=== PATIENT | male | born 1935 | race Caucasian/White ===

== ENCOUNTER 2021-04-07 17:42 | Inpatient (IN) | payer MEDICARE ==
[~2021-04-07] VITALS: Ht 177.8 cm; Wt 73.4 kg
[2021-04-07 18:31] LABS: BILIRUBIN,URINE SMALL (NEG); CLARITY,URINE CLEAR; COLOR,URINE YELLOW; NITRITE,URINE NEGATIVE (NEG); PROTEIN,URINE 100 mg/dL (NEG-TRACE)
[2021-04-07 18:34] LABS: BASO % 0 % (0-3); EOS % 0 % (0-3); HEMATOCRIT 37.4 % (39.0-53.0); HEMOGLOBIN 13.2 g/dL (13.0-17.5); LYMPH # 0.5 x10^3/uL (1.0-4.8); LYMPH % 6 % (24-48); MEAN CORPUSCULAR HEMOGLOBIN 34 pg (25-35); MEAN CORPUSCULAR HGB CONC 35 g/dL (31-37); MEAN CORPUSCULAR VOLUME 97 fL (79-100); MONO # 0.4 x10^3/uL (0.0-1.1); MONO % 4 % (0-9); NEUT # 7.8 x10^3/uL (1.8-7.7); NEUT % 89 % (31-73); PLATELET COUNT 96 x10^3/uL (140-400); RED BLOOD COUNT 3.85 x10^6/uL (4.30-5.70); RED CELL DISTRIBUTION WIDTH 15.1 % (11.5-14.5); WHITE BLOOD COUNT 8.7 x10^3/uL (4.0-11.0)
[2021-04-07 18:37] LABS: AMPHETAMINE/METHAMPHETAMINE NEG (NEG); BARBITURATES NEG (NEG); BENZODIAZEPINES NEG (NEG); CANNABINOIDS NEG (NEG); COCAINE NEG (NEG); METHADONE NEG (NEG); OPIATES NEG (NEG); PHENCYCLIDINE NEG (NEG)
--- NOTE | 2021-04-07 18:41 | RAD ---
Exam Date: 04/07/2021 6:[address] HEAD/BRAIN WO Indication: Reason: AMS, weakness / Spl. Instructions: / History: . TECHNIQUE: Head CT was performed without intravenous contrast. One or more of the following dose re duction techniques were utilized: *Automated exposure control (AEC) *Adjustment of mA and/or kV according to patient size *Use of iterative reconstruction technique *CT scan done according to ALARA, or ALARA/IMAGE GENTLY FINDINGS: There is a large hypodense left subdural collection measuring up to 2.0 cm in maximal thickness. Sma ll hyperdensity seen along this collection anteriorly which could represent acute blood versus calcif ication. There is significant mass effect on the left lateral ventricle with 1.4 cm midline shift to the right and subfalcine herniation. Cerebral volume loss is noted. Patchy ill-defined low attenuation areas in the subcortical and periv entricular white matter bilaterally are consistent with microvascular disease. There is no evidence of acute territorial infarct. No lesion of the skull base or the calvarium is seen. The visualized p aranasal sinuses, mastoid air cells and orbits are normal in appearance. IMPRESSION: Large hypodense chronic subdural collection on the left with significant mass effect, subfalcine yulisa iation, and 1.4 cm midline shift to the right. Small hyperdensity along the anterior aspect of the s ubdural likely represents chronic calcification. Acute blood would be considered less likely as a hy perdensity is not layering dependently. Volume loss and microvascular disease. Findings discussed with Dr. Lala at 04/07/2021 6:35 PM. FOR INTERNAL CODING PURPOSES Critical result: RESULT CODE: (C) Electronically signed by: Joseph Shankar MD (04/07/2021 6:38 PM) [facility]
[2021-04-07 18:46] LABS: BACTERIA,URINE 0 /HPF (0-FEW)
[2021-04-07 19:00] LABS: ALBUMIN 3.3 g/dL (3.4-5.0); ALBUMIN/GLOBULIN RATIO 0.7 (1.0-1.7); CALCIUM 9.3 mg/dL (8.5-10.1); CREATININE 1.3 mg/dL (0.7-1.3); GFR 52.6; MAGNESIUM 2.1 mg/dL (1.8-2.4); POTASSIUM 3.8 mmol/L (3.5-5.1); TOTAL PROTEIN 8.3 g/dL (6.4-8.2)
--- NOTE | 2021-04-07 19:03 | RAD ---
Single view chest dated 04/07/2021 7:00 PM: COMPARISON: None Clinical Indication: Shortness of breath. Findings: Single upright portable exam of the chest was performed. Heart and mediastinal contours within normal limits. Lungs are hyperinflated. There is some patchy and linear opacity at the perihilar regions an d bilateral lung bases. No consolidation or pleural effusion. No pneumothorax. IMPRESSION: 1. Patchy perihilar opacities, atelectasis versus early pneumonia. 2. Findings suggestive of COPD. Electronically signed by: Aubrey Haas MD (04/07/2021 7:00 PM) [facility]HELLE
[2021-04-07 19:14] LABS: % BANDS 1 % (0-9); % LYMPHS 10 % (24-48); % MONOS 3 % (0-10); % SEGS 86 % (35-66); PLT ESTIMATE DECREASED (ADEQUATE)
[2021-04-07] MEDS ORDERED: THROMBIN TOPICAL 20,000 UNIT SPRAY.SYRN KIT TP ONE (19:38)
[2021-04-07] MEDS ORDERED: SURGICEL HEMOSTAT 4X8 EACH. ONE (19:38)
[2021-04-07] MEDS ORDERED: GELATIN SPONGE SIZE 100. ONE (19:38)
[2021-04-07] MEDS ORDERED: BUPIVACAINE-EPI 0.5% 30 ML VIAL KIT. ONE (19:38)
[2021-04-07] MEDS ORDERED: BUPIVACAINE-EPI 0.5%-1:200000 MPF 30 ML VIAL. ONE (19:39)
[2021-04-07] MEDS ORDERED: IV NORMAL SALINE 1000ML BAG 1,000 ML IV ONE (19:45)
[2021-04-07] MEDS ORDERED: ROCURONIUM 50 MG/5 ML VIAL. ONE (19:46)
[2021-04-07] MEDS ORDERED: PROPOFOL 10 MG/ML (20ML) VIAL. IV ONE (19:51)
[2021-04-07] MEDS ORDERED: DEXAMETHASONE SOD PHOS 20 MG/5 ML VIAL. ONE (19:51)
[2021-04-07] MEDS ORDERED: LIDOCAINE 2% PF 5 ML VIAL. ONE (19:51)
[2021-04-07] MEDS ORDERED: ONDANSETRON PF 4 MG/2 ML VIAL. ONE (19:51)
[2021-04-07] MEDS ORDERED: ceFAZolin SODIUM 1 GM in IV NORMAL SALINE 1000ML BAG 1,000 ML IRR ONE (20:00)
[2021-04-07] MEDS ORDERED: ceFAZolin SODIUM IV Push 1 GM VIAL. IVP ONE (20:00)
[2021-04-07] MEDS ORDERED: MORPHINE SULFATE 2 MG/ML INJ. IVP PRN (21:30)
[2021-04-07] MEDS ORDERED: PROCHLORPERAZINE 10 MG/2 ML VIAL. IVP PRN (21:30)
[2021-04-07] MEDS ORDERED: IV RINGERS,LACTATED 1000ML 1,000 ML IV SCH (21:30)
[2021-04-07] MEDS ORDERED: fentaNYL PF VIAL 100 MCG/2 ML VIAL IVP PRN ×2 (21:30)
[2021-04-07] MEDS ORDERED: HYDROmorphone 2 MG/ML VIAL IVP PRN (21:30)
--- NOTE | 2021-04-07 21:30 | PHYS DOC ---
Past Medical History Past Medical History: Dementia (ALEX OLIVO ORTHODONTIC TECHNICIAN) Past Surgical History: Other Additional Past Surgical Histo: Unknown (ALEX OLIVO ORTHODONTIC TECHNICIAN) Smoking Status: Never Smoker Alcohol Use: None (ALEX OLIVO ORTHODONTIC TECHNICIAN) General Adult EDM: Chief Complaint: WEAKNESS/GENERALIZED HPI: HPI: Patient is a 85 year old male with history of dementia presenting to the ED today via EMS to be evaluated for altered mental status and generalized weakness. It is unknown when his symptoms began. Patient is answering simple questions with yes or no but seem not to follow much directions. Family came to the ED later, they state patient has had general weakness and altered mental status since this morning. They deny patient falling today but states a couple months ago he fell off his truck bed. (ALEX OLIVO ORTHODONTIC TECHNICIAN) Review of Systems: Review of Systems: Constitutional: Unable to assess due to mentation Eyes: Unable to assess due to mentation HENT: Unable to assess due to mentation Respiratory: Unable to assess due to mentation Cardiovascular: Unable to assess due to mentation GI: Unable to assess due to mentation : Unable to assess due to mentation Musculoskeletal: Unable to assess due to mentation Neurologic: Altered mental status Psychiatric: History of depression (ALEX OLIVO ORTHODONTIC TECHNICIAN) Heart Score: C/O Chest Pain: N/A Risk Factors: Risk Factors: DM, Current or recent (<one month) smoker, HTN, HLP, family hi story of CAD, obesity. Risk Scores: Score 0 - 3: 2.5% MACE over next 6 weeks - Discharge Home Score 4 - 6: 20.3% MACE over next 6 weeks - Admit for Clinical Observation Score 7 - 10: 72.7% MACE over next 6 weeks - Early Invasive Strategies (ALEX OLIVO ORTHODONTIC TECHNICIAN) Current Medications: Current Medications Medications (Trade) Dose Ordered Sig/Jennifer Start Time Stop Time Status Last Admin Dose Admin Bupivacaine HCl/ Epinephrine Bitart (Sensorcain-Epi 0.5% Kit) 30 ml STK-MED ONCE 04/07/21 19:38 04/07/21 19:39 DC Bupivacaine HCl/ Epinephrine Bitart (Sensorcain-Epi 0.5%-1:581120 Mpf) 30 ml STK-MED ONCE 04/07/21 19:39 04/07/21 19:39 DC Cefazolin Sodium (Ancef) 1 gm 1X ONCE 04/07/21 20:00 04/07/21 20:01 Cancel Cefazolin Sodium 1 gm/Sodium Chloride 1,000 ml @ 1,000 mls/hr 1X ONCE 04/07/21 20:00 04/07/21 20:59 DC Cefazolin Sodium/ Dextrose 50 ml @ As Directed STK-MED ONCE 04/07/21 20:29 04/07/21 20:29 DC Cellulose (Surgicel Hemostat 4x8) 1 each STK-MED ONCE 04/07/21 19:38 04/07/21 19:39 DC Dexamethasone Sodium Phosphate (Decadron) 20 mg STK-MED ONCE 04/07/21 19:51 04/07/21 19:51 DC Gelatin (Gelfoam Size 100) 1 each STK-MED ONCE 04/07/21 19:38 04/07/21 19:39 DC Lidocaine HCl (Lidocaine Pf 2% Vial) 5 ml STK-MED ONCE 04/07/21 19:51 04/07/21 19:51 DC Ondansetron HCl (Zofran) 4 mg STK-MED ONCE 04/07/21 19:51 04/07/21 19:51 DC Propofol (Diprivan) 200 mg STK-MED ONCE 04/07/21 19:51 04/07/21 19:51 DC Rocuronium [place] (Zemuron) 50 mg STK-MED ONCE 04/07/21 19:46 04/07/21 19:46 DC Sodium Chloride 1,000 ml @ 1,000 mls/hr 1X ONCE 04/07/21 19:45 04/07/21 20:44 Cancel Thrombin 20,000 unit STK-MED ONCE 04/07/21 19:38 04/07/21 19:39 DC (ALEX OLIVO ORTHODONTIC TECHNICIAN) Allergies: Allergies: Allergies Uncoded Allergies Type Severity Reaction Last Updated Verified "arthritis medication" Allergy Unknown 04/07/21 (ALEX OLIVO APRN) Physical Exam: PE: Constitutional: Well developed, well nourished, no acute distress, non-toxic appearance. [] HENT: Normocephalic, bilateral external ears normal, oropharynx moist, no oral exudates, nose normal. [] Eyes: PERRLA, EOMI, conjunctiva normal, no discharge. [] Neck: Normal range of motion, no tenderness, supple, no stridor. [] Cardiovascular:Heart rate regular rhythm Lungs & Thorax: Bilateral breath sounds clear to auscultation [] Abdomen: Bowel sounds normal, soft, no tenderness, no masses, no pulsatile masses. [] Skin: Warm, dry, no erythema, no rash. [] Back: No tenderness, no CVA tenderness. [] Extremities: No tenderness, no cyanosis, no clubbing, ROM intact, no edema. [] Neurologic: Alert and oriented X 1, normal motor function, normal sensory function, no focal deficits noted. Cranial nerves II through XII intact Psychologic: Flat affect (MUTUNGA,ALEX M ORTHODONTIC TECHNICIAN) Current Patient Data: Labs: Laboratory Tests Test 04/07/21 17:50 04/07/21 17:55 04/07/21 19:15 Urine Collection Type Unknown Urine Color Yellow Urine Clarity Clear Urine pH 6.0 (<5.0-8.0) Urine Specific [place] 1.020 (1.000-1.030) Urine Protein 100 mg/dL (NEG-TRACE) Urine Glucose (UA) Negative mg/dL (NEG) Urine Ketones (Stick) 40 mg/dL (NEG) Urine Blood Small (NEG) Urine Nitrite Negative (NEG) Urine Bilirubin Small (NEG) Urine Urobilinogen Dipstick 1.0 mg/dL (0.2 mg/dL) Urine Leukocyte Esterase Negative (NEG) Urine RBC 1-2 /HPF (0-2) Urine WBC 1-4 /HPF (0-4) Urine Transitional Epithelial Cells Few /LPF Urine Bacteria 0 /HPF (0-FEW) Urine Mucus Slight /LPF Urine Opiates Screen Neg (NEG) Urine Methadone Screen Neg (NEG) Urine Barbiturates Neg (NEG) Urine Phencyclidine Screen Neg (NEG) Urine Amphetamine/Methamphetamine Neg (NEG) Urine Benzodiazepines Screen Neg (NEG) Urine Cocaine Screen Neg (NEG) Urine Cannabinoids Screen Neg (NEG) Urine Ethyl Alcohol Neg (NEG) White Blood Count 8.7 x10^3/uL (4.0-11.0) Red Blood Count 3.85 x10^6/uL (4.30-5.70) L Hemoglobin 13.2 g/dL (13.0-17.5) Hematocrit 37.4 % (39.0-53.0) L Mean Corpuscular Volume 97 fL (79-100) Mean Corpuscular Hemoglobin 34 pg (25-35) Mean Corpuscular Hemoglobin Concent 35 g/dL (31-37) Red Cell Distribution Width 15.1 % (11.5-14.5) H Platelet Count 96 x10^3/uL (140-400) L Neutrophils (%) (Auto) 89 % (31-73) H Lymphocytes (%) (Auto) 6 % (24-48) L Monocytes (%) (Auto) 4 % (0-9) Eosinophils (%) (Auto) 0 % (0-3) Basophils (%) (Auto) 0 % (0-3) Neutrophils # (Auto) 7.8 x10^3/uL (1.8-7.7) H Lymphocytes # (Auto) 0.5 x10^3/uL (1.0-4.8) L Monocytes # (Auto) 0.4 x10^3/uL (0.0-1.1) Eosinophils # (Auto) 0.0 x10^3/uL (0.0-0.7) Basophils # (Auto) 0.0 x10^3/uL (0.0-0.2) Segmented Neutrophils % 86 % (35-66) H Band Neutrophils % 1 % (0-9) Lymphocytes % 10 % (24-48) L Monocytes % 3 % (0-10) Platelet Estimate Decreased (ADEQUATE) Sodium Level 140 mmol/L (136-145) Potassium Level 3.8 mmol/L (3.5-5.1) Chloride Level 101 mmol/L (98-107) Carbon Dioxide Level 26 mmol/L (21-32) Anion Gap 13 (6-14) Blood Urea Nitrogen 28 mg/dL (8-26) H Creatinine 1.3 mg/dL (0.7-1.3) Estimated GFR (Cockcroft-Gault) 52.6 BUN/Creatinine Ratio 22 (6-20) H Glucose Level 128 mg/dL (70-99) H Lactic Acid Level 2.7 mmol/L (0.4-2.0) H Calcium Level 9.3 mg/dL (8.5-10.1) Magnesium Level 2.1 mg/dL (1.8-2.4) Total Bilirubin 1.0 mg/dL (0.2-1.0) Aspartate Amino Transferase (AST) 27 U/L (15-37) Alanine Aminotransferase (ALT) 7 U/L (16-63) L Alkaline Phosphatase 82 U/L (46-116) Creatine Kinase 121 U/L (39-308) Creatine Kinase MB (Mass) 1.7 ng/mL (0.0-3.6) Creatine Kinase MB Relative Index 1.4 % (0-4) Troponin I Quantitative 0.021 ng/mL (0.000-0.055) LJ-Egy-R-Type Natriuretic Peptide 28260 pg/mL (0-449) H Total Protein 8.3 g/dL (6.4-8.2) H Albumin 3.3 g/dL (3.4-5.0) L Albumin/Globulin Ratio 0.7 (1.0-1.7) L Thyroid Stimulating Hormone (TSH) 2.295 uIU/mL (0.358-3.74) SARS-CoV-2 Antigen (Rapid) Negative (NEGATIVE) Laboratory Tests 04/07/21 17:55 Laboratory Tests 04/07/21 17:55 Vital Signs: Vital Signs Date Time Temp Pulse Resp B/P (MAP) Pulse Ox O2 Delivery O2 Flow Rate FiO2 04/07/21 19:53 86 204/87 (126) 97 Room Air 04/07/21 17:45 98.4 16 98.4 (ALEX OLIVO ORTHODONTIC TECHNICIAN) EKG: EK interpreted by Dr. Clarke sinus rhythm heart rate 83 no STEMI [] (ALEX OLIVO ORTHODONTIC TECHNICIAN) Radiology/Procedures: Radiology/Procedures: []PROCEDURE: CT HEAD WO CONTRAST Exam Date: 04/07/2021 6:[address] HEAD/BRAIN WO Indication: Reason: AMS, weakness / Spl. Instructions: / History: . TECHNIQUE: Head CT was performed without intravenous contrast. One or more of the following dose reduction techniques were utilized: *Automated exposure control (AEC) *Adjustment of mA and/or kV according to patient size *Use of iterative reconstruction technique *CT scan done according to ALARA, or ALARA/IMAGE GENTLY FINDINGS: There is a large hypodense left subdural collection measuring up to 2.0 cm in maximal thickness. Small hyperdensity seen along this collection anteriorly which could represent acute blood versus calcification. There is significant mass effect on the left lateral ventricle with 1.4 cm midline shift to the right and subfalcine herniation. Cerebral volume loss is noted. Patchy ill-defined low attenuation areas in the subcortical and periventricular white matter bilaterally are consistent with microvascular disease. There is no evidence of acute territorial infarct. No lesion of the skull base or the calvarium is seen. The visualized paranasal sinuses, mastoid air cells and orbits are normal in appearance. IMPRESSION: Large hypodense chronic subdural collection on the left with significant mass effect, subfalcine herniation, and 1.4 cm midline shift to the right. Small hyperdensity along the anterior aspect of the subdural likely represents chronic calcification. Acute blood would be considered less likely as a hyperdensity is not layering dependently. Volume loss and microvascular disease. Findings discussed with Dr. Olivo at 04/07/2021 6:35 PM. FOR INTERNAL CODING PURPOSES Critical result: RESULT CODE: (C) Electronically signed by: Edson Shankar MD (04/07/2021 6:38 PM) [facility] DICTATED and SIGNED BY: EDSON SHANKAR MD DATE: 04/07/21 [id number] (ALEX OLIVO APRN) Course & Med Decision Making: Course & Med Decision Making Pertinent Labs and Imaging studies reviewed. (See chart for details) This is a 85-year-old male patient presented to the ED today with generalized weakness and altered mental status, symptoms began today. CT of the head large hypodense chronic subdural collection on the left with significant mass effect, subfalcine herniation, and 1.4 cm midline shift to the right. Small hyperdensity along the anterior aspect of the subdural likely represents chronic calcification. Acute blood would be considered less likely as a hyperdensity is not layering dependently. Patient is awake and follows simple directions, can move upper and lower extremities. Spoke with Salima SCHAEFER for Dr. Guardado, they will take patient to surgery [facility] Family present in the ED. Spoke with Dr. Dos Santos who accepted patient for admission Dr. Clarke evaluated (ALEX OLIVO APRN) Course & Med Decision Making I have personally examined this patient and interviewed both the patient and the family, I reviewed images and agree with the documented history, exam, consult, and disposition. Decision was made by attending neurosurgeon to proceed to the operating room due to the size of subdural with midline shift. Critical care time was 35 minutes which includes time at bedside, spent in discussion of patient's care with specialists and/or family members, with interpretation of laboratory and/or radiological studies and is exclusive of procedures. Ophelia Clarke DO (OPHELIA CLARKE DO) Doc Disclaimer: Doc Disclaimer: This electronic medical record was generated, in whole or in part, using a voice recognition dictation system. (ALEX OLIVO APRN) Departure Departure Impression: Primary Impression: Subdural hematoma Additional Impression: Midline shift of brain due to hematoma Disposition: ADMITTED INPATIENT Condition: STABLE Referrals: DOUGIE MANCERA MD (PCP) ALEX OLIVO APRN Apr 07, 2021 21:30 OPHLEIA CLARKE DO Apr 07, 2021 23:39
[2021-04-07] MEDS ORDERED: ONDANSETRON PF 4 MG/2 ML VIAL. IVP PRN (21:45)
[2021-04-07] MEDS ORDERED: niCARdipine INJ. IV ONE (22:07)
[2021-04-07] MEDS ORDERED: SEVOFLURANE 61 TO 120 MINUTES. IH ONE (22:07)
[2021-04-07] MEDS ORDERED: HYDROcodone/APAP 5/325MG 1 TAB TABLET PO PRN (22:15)
[2021-04-07] MEDS ORDERED: MAG HYDROX/ALUMINUM HYD/SIMETH 30 ML ORAL.SUSP PO PRN (22:15)
[2021-04-07] MEDS ORDERED: CALCIUM CARBONATE 500 MG TAB.CHEW PO PRN (22:15)
[2021-04-07] MEDS ORDERED: 0.9 % SODIUM CHLORIDE 10 ML DISP.SYRIN. IV PRN (22:15)
[2021-04-07] MEDS ORDERED: MAGNESIUM HYDROXIDE 2,400 MG/30 ML ORAL.SUSP. PO PRN (22:15)
[2021-04-07] MEDS ORDERED: diphenhydrAMINE HCL 25 MG CAPSULE PO PRN (22:15)
[2021-04-07] MEDS ORDERED: DEXTROSE 50% 25 GM / 50ML DISP.SYRIN. IV PRN (22:15)
[2021-04-07 22:30] VITALS: BP 170/56
[2021-04-07] MEDS ORDERED: POTASSIUM CL 20MEQ D5-0.45NACL 1,000 ML IV SCH (22:30)
[2021-04-07 22:45] VITALS: BP 188/64
[2021-04-07 23:00] VITALS: BP 162/54
[2021-04-07 23:15] VITALS: BP 136/48
--- NOTE | 2021-04-07 23:19 | OP ---
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 OPERATION PERFORMED: Emergency left central craniotomy with evacuation of chronic subdural hematoma, placement of drain. SURGEON: Leodan Guardado M.D. VICE CHANCELLOR: OMAR Peralta, assisted with the surgery. She assisted with all aspects of the operation. OPERATIVE INDICATIONS: The patient is a pleasant 85-year-old who over the last few days has deteriorated significantly with regard to verbalization and movement. Today, the family became very concerned and he was brought to the emergency room. On examination, there was a right-sided paresis. He was able to move his left side, but would not follow commands and would only say a few syllables. On imaging studies, there was a very large left chronic subdural hematoma with a 1.4 cm left to right shift. I recommended emergent evacuation. I discussed this with the and daughter and they wished me to go ahead. DESCRIPTION OF PROCEDURE: Under general endotracheal anesthesia, the patient was positioned with a roll under his shoulder. His head was turned to the left. He was clipped, prepped and draped in the standard fashion. WILL hose and AV impulse boots had been applied for DVT prophylaxis. Ancef 2 grams was given less than 1 hour prior to initiation of surgery. A linear incision was made extending from above the external auditory meatus toward the midline over the widest part of the subdural. I reflected the skin and did place Kristen clips. I stripped back the periosteum. I placed a single bur hole and developed a flap, which I lifted free. Then, I opened the dura in a cruciate fashion. I tacked back the dural leaves with 4-0 Nurolon. There was a spontaneous egress of yellow crankcase type fluid and I copiously irrigated the region and fully evacuated the subdural. I then placed a 7 mm flat drain, which was brought out through a separate stab incision. I modeled the bone and replaced the bone with microplates after I obtained perfect hemostasis and did place a Gelfoam around the opening to assure that there was no dural bleeding. Once the bone was replaced, I closed the wound with absorbable suture. The skin was closed with skin thu. The surgery went very well. APRYL/LOR/ZANA DR: Cesar TID: [id number] MTDAna
[2021-04-07 23:52] LABS: PROTHROMBIN TIME PATIENT 15.4 SEC (11.7-14.0)
[2021-04-08] VITALS (22 sets, daily range): BP systolic 109–146; BP diastolic 46–73
[2021-04-08] MEDS: ceFAZolin SODIUM IV Push 1 GM VIAL. IVP SCH ×3 (04:46→21:10)
[2021-04-08] MEDS: ACETAMINOPHEN 325 MG TABLET. PO SCH ×3 (06:00→21:10)
--- NOTE | 2021-04-08 06:32 | EKG ---
[facility] [address] [place] [address] Test Date: 2021-04-07 Test Time: 19:00:02 Pat Name: YON ARTIS Department: Room: Gender: M Wet Process Head Miller: : 1935 Requested By: ALEX OLIVO Order Number: [id number] Reading MD: Measurements Intervals [place] Rate: 83 P: -3 DC: 172 QRS: 4 QRSD: 82 T: 26 QT: 422 QTc: 496 Interpretive Statements SINUS RHYTHM LEFT ATRIAL ABNORMALITY PROLONGED QT ABNORMAL ECG RI6.02 No previous ECG available for comparison
[2021-04-08 06:35] LABS: BASO % 0 % (0-3); EOS % 0 % (0-3); HEMATOCRIT 31.1 % (39.0-53.0); HEMOGLOBIN 11.1 g/dL (13.0-17.5); LYMPH # 0.3 x10^3/uL (1.0-4.8); LYMPH % 4 % (24-48); MEAN CORPUSCULAR HEMOGLOBIN 35 pg (25-35); MEAN CORPUSCULAR HGB CONC 36 g/dL (31-37); MEAN CORPUSCULAR VOLUME 97 fL (79-100); MONO # 0.2 x10^3/uL (0.0-1.1); MONO % 2 % (0-9); NEUT # 6.7 x10^3/uL (1.8-7.7); NEUT % 94 % (31-73); PLATELET COUNT 66 x10^3/uL (140-400); RED BLOOD COUNT 3.22 x10^6/uL (4.30-5.70); RED CELL DISTRIBUTION WIDTH 15.1 % (11.5-14.5); WHITE BLOOD COUNT 7.1 x10^3/uL (4.0-11.0)
[2021-04-08 06:59] LABS: ALBUMIN 2.6 g/dL (3.4-5.0); ALBUMIN/GLOBULIN RATIO 0.6 (1.0-1.7); CALCIUM 8.2 mg/dL (8.5-10.1); CREATININE 1.1 mg/dL (0.7-1.3); GFR 63.8; POTASSIUM 3.7 mmol/L (3.5-5.1); TOTAL BILIRUBIN 0.7 mg/dL (0.2-1.0); TOTAL PROTEIN 6.7 g/dL (6.4-8.2)
[2021-04-08] MEDS: DOCUSATE SODIUM 100 MG CAPSULE. PO SCH ×2 (12:36→21:09)
--- NOTE | 2021-04-08 13:37 | PDOC ---
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, placement of drain awake, alert no complaints Objective Objective Vital Signs Date Time Temp Pulse Resp B/P (MAP) Pulse Ox O2 Delivery O2 Flow Rate FiO2 04/08/21 12:37 80 16 118/59 (78) 95 Room Air 04/08/21 12:17 97.6 97.6 04/08/21 11:00 2.0 Intake and Output 04/08/21 07:00 Intake Total 1712.2 ml Output Total 520 ml Balance 1192.2 ml IV Total 1712.2 ml Output Urine Total 400 ml Drainage Total 95 ml Estimated Blood Loss 25 ml Physical Exam General: Alert, Cooperative, No acute distress MUSCULOSKELETAL: Other (GUEVARA) Neuro: Other (follows commands, answers questions ) Skin: Other (C,D,I.Drain removed without difficulty, dressing changed, thu intact) Assessment Assessment Problems Medical Problems: (1) Midline shift of brain due to hematoma Status: Acute Plan Plan of Care keep flat for 4 hours post drain removal then may transfer to floor PT/ OT D/W RN Comment Review of Relevant I have reviewed the following items emperatriz (where applicable) has been applied. Labs Laboratory Tests Test 04/07/21 17:50 04/07/21 17:55 04/07/21 19:15 04/07/21 23:20 Urine Collection Type Unknown Urine Color Yellow Urine Clarity Clear Urine pH 6.0 (<5.0-8.0) Urine Specific [place] 1.020 (1.000-1.030) Urine Protein 100 mg/dL (NEG-TRACE) Urine Glucose (UA) Negative mg/dL (NEG) Urine Ketones (Stick) 40 mg/dL (NEG) Urine Blood Small (NEG) Urine Nitrite Negative (NEG) Urine Bilirubin Small (NEG) Urine Urobilinogen Dipstick 1.0 mg/dL (0.2 mg/dL) Urine Leukocyte Esterase Negative (NEG) Urine RBC 1-2 /HPF (0-2) Urine WBC 1-4 /HPF (0-4) Urine Transitional Epithelial Cells Few /LPF Urine Bacteria 0 /HPF (0-FEW) Urine Mucus Slight /LPF Urine Opiates Screen Neg (NEG) Urine Methadone Screen Neg (NEG) Urine Barbiturates Neg (NEG) Urine Phencyclidine Screen Neg (NEG) Urine Amphetamine/Methamphetamine Neg (NEG) Urine Benzodiazepines Screen Neg (NEG) Urine Cocaine Screen Neg (NEG) Urine Cannabinoids Screen Neg (NEG) Urine Ethyl Alcohol Neg (NEG) White Blood Count 8.7 x10^3/uL (4.0-11.0) Red Blood Count 3.85 x10^6/uL (4.30-5.70) Hemoglobin 13.2 g/dL (13.0-17.5) Hematocrit 37.4 % (39.0-53.0) Mean Corpuscular Volume 97 fL (79-100) Mean Corpuscular Hemoglobin 34 pg (25-35) Mean Corpuscular Hemoglobin Concent 35 g/dL (31-37) Red Cell Distribution Width 15.1 % (11.5-14.5) Platelet Count 96 x10^3/uL (140-400) Neutrophils (%) (Auto) 89 % (31-73) Lymphocytes (%) (Auto) 6 % (24-48) Monocytes (%) (Auto) 4 % (0-9) Eosinophils (%) (Auto) 0 % (0-3) Basophils (%) (Auto) 0 % (0-3) Neutrophils # (Auto) 7.8 x10^3/uL (1.8-7.7) Lymphocytes # (Auto) 0.5 x10^3/uL (1.0-4.8) Monocytes # (Auto) 0.4 x10^3/uL (0.0-1.1) Eosinophils # (Auto) 0.0 x10^3/uL (0.0-0.7) Basophils # (Auto) 0.0 x10^3/uL (0.0-0.2) Segmented Neutrophils % 86 % (35-66) Band Neutrophils % 1 % (0-9) Lymphocytes % 10 % (24-48) Monocytes % 3 % (0-10) Platelet Estimate Decreased (ADEQUATE) Sodium Level 140 mmol/L (136-145) Potassium Level 3.8 mmol/L (3.5-5.1) Chloride Level 101 mmol/L (98-107) Carbon Dioxide Level 26 mmol/L (21-32) Anion Gap 13 (6-14) Blood Urea Nitrogen 28 mg/dL (8-26) Creatinine 1.3 mg/dL (0.7-1.3) Estimated GFR (Cockcroft-Gault) 52.6 BUN/Creatinine Ratio 22 (6-20) Glucose Level 128 mg/dL (70-99) Lactic Acid Level 2.7 mmol/L (0.4-2.0) 1.1 mmol/L (0.4-2.0) Calcium Level 9.3 mg/dL (8.5-10.1) Magnesium Level 2.1 mg/dL (1.8-2.4) Total Bilirubin 1.0 mg/dL (0.2-1.0) Aspartate Amino Transf (AST/SGOT) 27 U/L (15-37) Alanine Aminotransferase (ALT/SGPT) 7 U/L (16-63) Alkaline Phosphatase 82 U/L (46-116) Creatine Kinase 121 U/L (39-308) Creatine Kinase MB (Mass) 1.7 ng/mL (0.0-3.6) Creatine Kinase MB Relative Index 1.4 % (0-4) Troponin I Quantitative 0.021 ng/mL (0.000-0.055) 0.048 ng/mL (0.000-0.055) UF-Udy-S-Type Natriuretic Peptide 78846 pg/mL (0-449) Total Protein 8.3 g/dL (6.4-8.2) Albumin 3.3 g/dL (3.4-5.0) Albumin/Globulin Ratio 0.7 (1.0-1.7) Procalcitonin 0.06 ng/mL (0.00-0.10) Thyroid Stimulating Hormone (TSH) 2.295 uIU/mL (0.358-3.74) SARS-CoV-2 RNA (OVIDIO) Negative (Negative) SARS-CoV-2 Antigen (Rapid) Negative (NEGATIVE) Prothrombin Time 15.4 SEC (11.7-14.0) Prothromb Time International Ratio 1.2 (0.8-1.1) Activated Partial Thromboplast Time 30 SEC (24-38) Test 04/08/21 06:15 White Blood Count 7.1 x10^3/uL (4.0-11.0) Red Blood Count 3.22 x10^6/uL (4.30-5.70) Hemoglobin 11.1 g/dL (13.0-17.5) Hematocrit 31.1 % (39.0-53.0) Mean Corpuscular Volume 97 fL (79-100) Mean Corpuscular Hemoglobin 35 pg (25-35) Mean Corpuscular Hemoglobin Concent 36 g/dL (31-37) Red Cell Distribution Width 15.1 % (11.5-14.5) Platelet Count 66 x10^3/uL (140-400) Neutrophils (%) (Auto) 94 % (31-73) Lymphocytes (%) (Auto) 4 % (24-48) Monocytes (%) (Auto) 2 % (0-9) Eosinophils (%) (Auto) 0 % (0-3) Basophils (%) (Auto) 0 % (0-3) Neutrophils # (Auto) 6.7 x10^3/uL (1.8-7.7) Lymphocytes # (Auto) 0.3 x10^3/uL (1.0-4.8) Monocytes # (Auto) 0.2 x10^3/uL (0.0-1.1) Eosinophils # (Auto) 0.0 x10^3/uL (0.0-0.7) Basophils # (Auto) 0.0 x10^3/uL (0.0-0.2) Sodium Level 140 mmol/L (136-145) Potassium Level 3.7 mmol/L (3.5-5.1) Chloride Level 104 mmol/L (98-107) Carbon Dioxide Level 29 mmol/L (21-32) Anion Gap 7 (6-14) Blood Urea Nitrogen 27 mg/dL (8-26) Creatinine 1.1 mg/dL (0.7-1.3) Estimated GFR (Cockcroft-Gault) 63.8 BUN/Creatinine Ratio 25 (6-20) Glucose Level 146 mg/dL (70-99) Calcium Level 8.2 mg/dL (8.5-10.1) Total Bilirubin 0.7 mg/dL (0.2-1.0) Aspartate Amino Transf (AST/SGOT) 22 U/L (15-37) Alanine Aminotransferase (ALT/SGPT) 7 U/L (16-63) Alkaline Phosphatase 71 U/L (46-116) Total Protein 6.7 g/dL (6.4-8.2) Albumin 2.6 g/dL (3.4-5.0) Albumin/Globulin Ratio 0.6 (1.0-1.7) Laboratory Tests Test 04/07/21 17:50 04/07/21 17:55 04/07/21 19:15 04/07/21 23:20 Urine Collection Type Unknown Urine Color Yellow Urine Clarity Clear Urine pH 6.0 (<5.0-8.0) Urine Specific [place] 1.020 (1.000-1.030) Urine Protein 100 mg/dL (NEG-TRACE) Urine Glucose (UA) Negative mg/dL (NEG) Urine Ketones (Stick) 40 mg/dL (NEG) Urine Blood Small (NEG) Urine Nitrite Negative (NEG) Urine Bilirubin Small (NEG) Urine Urobilinogen Dipstick 1.0 mg/dL (0.2 mg/dL) Urine Leukocyte Esterase Negative (NEG) Urine RBC 1-2 /HPF (0-2) Urine WBC 1-4 /HPF (0-4) Urine Transitional Epithelial Cells Few /LPF Urine Bacteria 0 /HPF (0-FEW) Urine Mucus Slight /LPF Urine Opiates Screen Neg (NEG) Urine Methadone Screen Neg (NEG) Urine Barbiturates Neg (NEG) Urine Phencyclidine Screen Neg (NEG) Urine Amphetamine/Methamphetamine Neg (NEG) Urine Benzodiazepines Screen Neg (NEG) Urine Cocaine Screen Neg (NEG) Urine Cannabinoids Screen Neg (NEG) Urine Ethyl Alcohol Neg (NEG) White Blood Count 8.7 x10^3/uL (4.0-11.0) Red Blood Count 3.85 x10^6/uL (4.30-5.70) Hemoglobin 13.2 g/dL (13.0-17.5) Hematocrit 37.4 % (39.0-53.0) Mean Corpuscular Volume 97 fL (79-100) Mean Corpuscular Hemoglobin 34 pg (25-35) Mean Corpuscular Hemoglobin Concent 35 g/dL (31-37) Red Cell Distribution Width 15.1 % (11.5-14.5) Platelet Count 96 x10^3/uL (140-400) Neutrophils (%) (Auto) 89 % (31-73) Lymphocytes (%) (Auto) 6 % (24-48) Monocytes (%) (Auto) 4 % (0-9) Eosinophils (%) (Auto) 0 % (0-3) Basophils (%) (Auto) 0 % (0-3) Neutrophils # (Auto) 7.8 x10^3/uL (1.8-7.7) Lymphocytes # (Auto) 0.5 x10^3/uL (1.0-4.8) Monocytes # (Auto) 0.4 x10^3/uL (0.0-1.1) Eosinophils # (Auto) 0.0 x10^3/uL (0.0-0.7) Basophils # (Auto) 0.0 x10^3/uL (0.0-0.2) Segmented Neutrophils % 86 % (35-66) Band Neutrophils % 1 % (0-9) Lymphocytes % 10 % (24-48) Monocytes % 3 % (0-10) Platelet Estimate Decreased (ADEQUATE) Sodium Level 140 mmol/L (136-145) Potassium Level 3.8 mmol/L (3.5-5.1) Chloride Level 101 mmol/L (98-107) Carbon Dioxide Level 26 mmol/L (21-32) Anion Gap 13 (6-14) Blood Urea Nitrogen 28 mg/dL (8-26) Creatinine 1.3 mg/dL (0.7-1.3) Estimated GFR (Cockcroft-Gault) 52.6 BUN/Creatinine Ratio 22 (6-20) Glucose Level 128 mg/dL (70-99) Lactic Acid Level 2.7 mmol/L (0.4-2.0) 1.1 mmol/L (0.4-2.0) Calcium Level 9.3 mg/dL (8.5-10.1) Magnesium Level 2.1 mg/dL (1.8-2.4) Total Bilirubin 1.0 mg/dL (0.2-1.0) Aspartate Amino Transf (AST/SGOT) 27 U/L (15-37) Alanine Aminotransferase (ALT/SGPT) 7 U/L (16-63) Alkaline Phosphatase 82 U/L (46-116) Creatine Kinase 121 U/L (39-308) Creatine Kinase MB (Mass) 1.7 ng/mL (0.0-3.6) Creatine Kinase MB Relative Index 1.4 % (0-4) Troponin I Quantitative 0.021 ng/mL (0.000-0.055) 0.048 ng/mL (0.000-0.055) ZY-Ctb-G-Type Natriuretic Peptide 99074 pg/mL (0-449) Total Protein 8.3 g/dL (6.4-8.2) Albumin 3.3 g/dL (3.4-5.0) Albumin/Globulin Ratio 0.7 (1.0-1.7) Procalcitonin 0.06 ng/mL (0.00-0.10) Thyroid Stimulating Hormone (TSH) 2.295 uIU/mL (0.358-3.74) SARS-CoV-2 RNA (OVIDIO) Negative (Negative) SARS-CoV-2 Antigen (Rapid) Negative (NEGATIVE) Prothrombin Time 15.4 SEC (11.7-14.0) Prothromb Time International Ratio 1.2 (0.8-1.1) Activated Partial Thromboplast Time 30 SEC (24-38) Test 04/08/21 06:15 White Blood Count 7.1 x10^3/uL (4.0-11.0) Red Blood Count 3.22 x10^6/uL (4.30-5.70) Hemoglobin 11.1 g/dL (13.0-17.5) Hematocrit 31.1 % (39.0-53.0) Mean Corpuscular Volume 97 fL (79-100) Mean Corpuscular Hemoglobin 35 pg (25-35) Mean Corpuscular Hemoglobin Concent 36 g/dL (31-37) Red Cell Distribution Width 15.1 % (11.5-14.5) Platelet Count 66 x10^3/uL (140-400) Neutrophils (%) (Auto) 94 % (31-73) Lymphocytes (%) (Auto) 4 % (24-48) Monocytes (%) (Auto) 2 % (0-9) Eosinophils (%) (Auto) 0 % (0-3) Basophils (%) (Auto) 0 % (0-3) Neutrophils # (Auto) 6.7 x10^3/uL (1.8-7.7) Lymphocytes # (Auto) 0.3 x10^3/uL (1.0-4.8) Monocytes # (Auto) 0.2 x10^3/uL (0.0-1.1) Eosinophils # (Auto) 0.0 x10^3/uL (0.0-0.7) Basophils # (Auto) 0.0 x10^3/uL (0.0-0.2) Sodium Level 140 mmol/L (136-145) Potassium Level 3.7 mmol/L (3.5-5.1) Chloride Level 104 mmol/L (98-107) Carbon Dioxide Level 29 mmol/L (21-32) Anion Gap 7 (6-14) Blood Urea Nitrogen 27 mg/dL (8-26) Creatinine 1.1 mg/dL (0.7-1.3) Estimated GFR (Cockcroft-Gault) 63.8 BUN/Creatinine Ratio 25 (6-20) Glucose Level 146 mg/dL (70-99) Calcium Level 8.2 mg/dL (8.5-10.1) Total Bilirubin 0.7 mg/dL (0.2-1.0) Aspartate Amino Transf (AST/SGOT) 22 U/L (15-37) Alanine Aminotransferase (ALT/SGPT) 7 U/L (16-63) Alkaline Phosphatase 71 U/L (46-116) Total Protein 6.7 g/dL (6.4-8.2) Albumin 2.6 g/dL (3.4-5.0) Albumin/Globulin Ratio 0.6 (1.0-1.7) Medications Current Medications Cefazolin Sodium (Ancef) 1 gm 1X ONCE IVP ; Start 04/07/21 at 20:00; Stop 04/07/21 at 20:01; Status Cancel Sodium Chloride 1,000 ml @ 1,000 mls/hr 1X ONCE IV ; Start 04/07/21 at 19:45; Stop 04/07/21 at 20:44; Status Cancel Gelatin (Gelfoam Size 100) 1 each STK-MED ONCE .ROUTE Last administered on 04/07/21at 21:19; Start 04/07/21 at 19:38; Stop 04/07/21 at 19:39; Status DC Bupivacaine HCl/ Epinephrine Bitart (Sensorcain-Epi 0.5% Kit) 30 ml STK-MED ONCE .ROUTE ; Start 04/07/21 at 19:38; Stop 04/07/21 at 19:39; Status DC Cellulose (Surgicel Hemostat 4x8) 1 each STK-MED ONCE .ROUTE ; Start 04/07/21 at 19:38; Stop 04/07/21 at 19:39; Status DC Thrombin 20,000 unit STK-MED ONCE TP Last administered on 04/07/21at 21:19; Start 04/07/21 at 19:38; Stop 04/07/21 at 19:39; Status DC Bupivacaine HCl/ Epinephrine Bitart (Sensorcain-Epi 0.5%-1:[id number] Mpf) 30 ml STK-MED ONCE .ROUTE Last administered on 04/07/21at 21:19; Start 04/07/21 at 19:39; Stop 04/07/21 at 19:39; Status DC Rocuronium [place] (Zemuron) 50 mg STK-MED ONCE .ROUTE ; Start 04/07/21 at 19:46; Stop 04/07/21 at 19:46; Status DC Dexamethasone Sodium Phosphate (Decadron) 20 mg STK-MED ONCE .ROUTE ; Start 04/07/21 at 19:51; Stop 04/07/21 at 19:51; Status DC Lidocaine HCl (Lidocaine Pf 2% Vial) 5 ml STK-MED ONCE .ROUTE ; Start 04/07/21 at 19:51; Stop 04/07/21 at 19:51; Status DC Ondansetron HCl (Zofran) 4 mg STK-MED ONCE .ROUTE ; Start 04/07/21 at 19:51; Stop 04/07/21 at 19:51; Status DC Propofol (Diprivan) 200 mg STK-MED ONCE IV ; Start 04/07/21 at 19:51; Stop 04/07/21 at 19:51; Status DC Cefazolin Sodium 1 gm/Sodium Chloride 1,000 ml @ 1,000 mls/hr 1X ONCE IRR ; Start 04/07/21 at 20:00; Stop 04/07/21 at 20:59; Status DC Cefazolin Sodium/ Dextrose 50 ml @ As Directed STK-MED ONCE IV ; Start 04/07/21 at 20:29; Stop 04/07/21 at 20:29; Status DC Fentanyl Citrate (Fentanyl 2ml Vial) 25 mcg PRN Q5MIN PRN IVP MILD PAIN 1-3; Start 04/07/21 at 21:30; Stop 04/08/21 at 21:29 Fentanyl Citrate (Fentanyl 2ml Vial) 50 mcg PRN Q5MIN PRN IVP MODERATE PAIN 4- 6; Start 04/07/21 at 21:30; Stop 04/08/21 at 21:29 Morphine Sulfate (Morphine Sulfate) 1 mg PRN Q10MIN PRN IVP SEVERE PAIN 7-10; Start 04/07/21 at 21:30; Stop 04/08/21 at 21:29 Ringer's Solution 1,000 ml @ 30 mls/hr Q24H IV ; Start 04/07/21 at 21:30; Stop 04/08/21 at 09:29; Status DC Hydromorphone HCl (Dilaudid) 0.5 mg PRN Q10MIN PRN IVP SEVERE PAIN 7-10, 2nd CHOICE; Start 04/07/21 at 21:30; Stop 04/08/21 at 21:29 Prochlorperazine Edisylate (Compazine) 5 mg PACU PRN PRN IVP NAUSEA, MRX1; Start 04/07/21 at 21:30; Stop 04/08/21 at 21:29 Ondansetron HCl (Zofran) 4 mg PRN Q8HRS PRN IVP NAUSEA/VOMITING; Start 04/07/21 at 21:45; Stop 04/08/21 at 21:44 Nicardipine HCl (Cardene) 25 mg STK-MED ONCE IV ; Start 04/07/21 at 22:07; Stop 04/07/21 at 22:07; Status DC Sevoflurane (Ultane) 60 ml STK-MED ONCE IH ; Start 04/07/21 at 22:07; Stop 04/07/21 at 22:08; Status DC Nicardipine HCl 50 mg/Sodium Chloride 250 ml @ 25 mls/hr TITRATE PRN IV PER PROTOCOL Last administered on 04/07/21at 22:47; Start 04/07/21 at 22:15 Hydralazine HCl (Apresoline Inj) 5 mg PRN Q6HRS PRN IVP TO KEEP SBP<140mmHg; Start 04/07/21 at 22:15 Al Hydroxide/Mg Hydroxide (Mylanta Plus Xs) 30 ml PRN Q3HRS PRN PO HEARTBURN / GAS; Start 04/07/21 at 22:15 Calcium Carbonate/ Glycine (Tums) 500 mg PRN Q3HRS PRN PO INDIGESTION; Start 04/07/21 at 22:15 Diphenhydramine HCl (Benadryl) 25 mg PRN Q6HRS PRN PO ITCHING; Start 04/07/21 at 22:15 Sodium Chloride (Normal Saline Flush) 3 ml QSHIFT PRN IV AFTER MEDS AND BLOOD DRAWS; Start 04/07/21 at 22:15 Potassium Chloride/Dextrose/ Sod Cl 1,000 ml @ 75 mls/hr [id number] IV Last administered on 04/07/21at 23:14; Start 04/07/21 at 22:30; Stop 04/08/21 at 11:34; Status DC Dextrose (Dextrose 50%-Water Syringe) 12.5 gm PRN Q15MIN PRN IV SEE COMMENTS; Start 04/07/21 at 22:15 Acetaminophen/ Hydrocodone Bitart (Lortab 5/325) 1 tab PRN Q4HRS PRN PO MILD PAIN 1-3; Start 04/07/21 at 22:15 Acetaminophen (Tylenol) 650 mg Q8HRS PO Last administered on 04/08/21at 12:37; Start 04/08/21 at 06:00 Docusate Sodium (Colace) 100 mg BID PO Last administered on 04/08/21at 12:36; Start 04/08/21 at 09:00 Magnesium Hydroxide (Milk Of Magnesia) 2,400 mg PRN Q12HR PRN PO CONSTIPATION; Start 04/07/21 at 22:15 Cefazolin Sodium (Ancef) 1 gm Q8H IVP Last administered on 04/08/21at 12:37; Start 04/08/21 at 04:30; Stop 04/08/21 at 20:31 Vitals/I & O Vital Sign - Last 24 Hours 04/07/21 04/07/21 04/07/21 04/07/21 17:42 17:45 18:23 18:53 Temp 98.4 98.4 Pulse 88 84 85 80 Resp 16 B/P (MAP) 198/104 (135) 198/104 205/98 (133) 185/87 (119) Pulse Ox 98 96 96 97 O2 Delivery Room Air Room Air Room Air Room Air 04/07/21 04/07/21 04/07/21 04/07/21 19:23 19:53 22:24 22:24 Temp 97.9 97.9 Pulse 83 86 88 Resp 15 B/P (MAP) 195/94 (127) 204/87 (126) 122/72 170/56 Pulse Ox 97 97 100 O2 Delivery Room Air Room Air Mask Simple Mask O2 Flow Rate 10 10 04/07/21 04/07/21 04/07/21 04/07/21 22:30 22:45 22:45 22:59 Temp 97.9 97.9 97.9 97.9 Pulse 88 86 82 Resp 20 20 14 B/P (MAP) 170/56 (94) 188/64 (105) 188/64 Pulse Ox 100 100 100 O2 Delivery Simple Mask Simple Mask Nasal Cannula Nasal Cannula O2 Flow Rate 10.0 10.0 3 3 04/07/21 04/07/21 04/07/21 04/07/21 23:00 23:00 23:15 23:59 Temp 97.9 97.9 Pulse 78 81 78 Resp 20 14 20 B/P (MAP) 162/54 (90) 143/49 136/48 (77) Pulse Ox 100 100 100 O2 Delivery Simple Mask Nasal Cannula Nasal Cannula Nasal Cannula O2 Flow Rate 2.0 3 2.0 2.0 04/08/21 04/08/21 04/08/21 04/08/21 00:00 00:01 01:00 02:00 Temp 98.6 98.6 Pulse 78 76 80 73 Resp 20 20 18 B/P (MAP) 136/48 (77) 126/46 (72) 135/51 (79) 124/47 (72) Pulse Ox 100 99 99 O2 Delivery Nasal Cannula Nasal Cannula Venturi Mask O2 Flow Rate 2.0 2.0 12.0 04/08/21 04/08/21 04/08/21 04/08/21 03:00 04:00 04:00 04:00 Temp 97.1 97.1 Pulse 73 70 73 Resp 18 18 B/P (MAP) 136/51 (79) 135/57 (83) 122/73 (89) Pulse Ox 99 100 O2 Delivery Venturi Mask Venturi Mask Venturi Mask O2 Flow Rate 12.0 12.0 12.0 04/08/21 04/08/21 04/08/21 04/08/21 05:00 06:00 08:00 08:00 Temp 98.1 98.1 Pulse 70 79 78 Resp 16 16 16 B/P (MAP) 138/57 (84) 146/59 (88) 138/48 (78) Pulse Ox 100 100 100 O2 Delivery Venturi Mask Venturi Mask Venturi Mask O2 Flow Rate 12.0 12.0 12.0 04/08/21 04/08/21 04/08/21 04/08/21 08:00 09:00 10:00 11:00 Temp 98.6 98.6 Pulse 78 72 76 76 Resp 24 16 18 B/P (MAP) 141/48 (79) 135/51 (79) 125/50 (75) 115/56 (75) Pulse Ox 96 96 O2 Delivery Nasal Cannula Nasal Cannula O2 Flow Rate 4.0 2.0 04/08/21 04/08/21 04/08/21 12:17 12:17 12:37 Temp 97.6 97.6 Pulse 83 80 Resp 18 16 B/P (MAP) 136/59 (84) 118/59 (78) Pulse Ox 96 95 O2 Delivery Room Air Room Air Room Air Intake and Output 04/07/21 04/07/21 04/08/21 15:00 23:00 07:00 Intake Total 1600 ml 112.2 ml Output Total 160 ml 360 ml Balance 1440 ml -247.8 ml Justifications for Admission Other Justification ANDREW AGUILA MD Apr 08, 2021 13:36
--- NOTE | 2021-04-08 13:44 | PDOC1 ---
History and Physical Date of Service: DOS: DATE: 04/08/21 TIME: 13:34 Chief Complaint: Problems: (1) Subdural hematoma (2) Midline shift of brain due to hematoma (3) Weakness (4) AMS (altered mental status) Chief Complain: AMS History of Present Illness: HPI: Patient is a very poor historian low healthcare literacy thus H&P from the emergency room "Patient is a 85 year old male with history of dementia presenting to the ED via EMS to be evaluated for altered mental status and generalized weakness. It is unknown when his symptoms began. Patient is answering simple questions with yes or no but seem not to follow much directions. Family came to the ED later, they state patient has had general weakness and altered mental status since this morning. They deny patient falling today but states a couple months ago he fell off his truck bed." Further chart review shows patient had been having altered mental status for several days and family was concerned thus brought him to the ER. Was found to have right side paresis. 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 Only further information patient was able to provide to me was that he does not have any recollection of having a fall recently. Says he thinks he had a fall 2 years ago but cannot be exactly sure. Unable to reach any family members currently. 90 minutes of critical care time Past Medical/Surgical History: PMH/PSH: Dementia otherwise unknown Allergies: Allergies: Uncoded Allergies: "arthritis medication" (Allergy, Unknown, 04/07/21) Family History: Family History: Noncontributory Social History: Social History: No smoking or drinking Current Medications: Current Medications Current Medications Cefazolin Sodium (Ancef) 1 gm 1X ONCE IVP ; Start 04/07/21 at 20:00; Stop 04/07/21 at 20:01; Status Cancel Sodium Chloride 1,000 ml @ 1,000 mls/hr 1X ONCE IV ; Start 04/07/21 at 19:45; Stop 04/07/21 at 20:44; Status Cancel Gelatin (Gelfoam Size 100) 1 each STK-MED ONCE .ROUTE Last administered on 04/07/21at 21:19; Start 04/07/21 at 19:38; Stop 04/07/21 at 19:39; Status DC Bupivacaine HCl/ Epinephrine Bitart (Sensorcain-Epi 0.5% Kit) 30 ml STK-MED ONCE .ROUTE ; Start 04/07/21 at 19:38; Stop 04/07/21 at 19:39; Status DC Cellulose (Surgicel Hemostat 4x8) 1 each STK-MED ONCE .ROUTE ; Start 04/07/21 at 19:38; Stop 04/07/21 at 19:39; Status DC Thrombin 20,000 unit STK-MED ONCE TP Last administered on 04/07/21at 21:19; Start 04/07/21 at 19:38; Stop 04/07/21 at 19:39; Status DC Bupivacaine HCl/ Epinephrine Bitart (Sensorcain-Epi 0.5%-1:[id number] Mpf) 30 ml STK-MED ONCE .ROUTE Last administered on 04/07/21at 21:19; Start 04/07/21 at 19:39; Stop 04/07/21 at 19:39; Status DC Rocuronium [place] (Zemuron) 50 mg STK-MED ONCE .ROUTE ; Start 04/07/21 at 19:46; Stop 04/07/21 at 19:46; Status DC Dexamethasone Sodium Phosphate (Decadron) 20 mg STK-MED ONCE .ROUTE ; Start 04/07/21 at 19:51; Stop 04/07/21 at 19:51; Status DC Lidocaine HCl (Lidocaine Pf 2% Vial) 5 ml STK-MED ONCE .ROUTE ; Start 04/07/21 at 19:51; Stop 04/07/21 at 19:51; Status DC Ondansetron HCl (Zofran) 4 mg STK-MED ONCE .ROUTE ; Start 04/07/21 at 19:51; Stop 04/07/21 at 19:51; Status DC Propofol (Diprivan) 200 mg STK-MED ONCE IV ; Start 04/07/21 at 19:51; Stop 04/07/21 at 19:51; Status DC Cefazolin Sodium 1 gm/Sodium Chloride 1,000 ml @ 1,000 mls/hr 1X ONCE IRR ; Start 04/07/21 at 20:00; Stop 04/07/21 at 20:59; Status DC Cefazolin Sodium/ Dextrose 50 ml @ As Directed STK-MED ONCE IV ; Start 04/07/21 at 20:29; Stop 04/07/21 at 20:29; Status DC Fentanyl Citrate (Fentanyl 2ml Vial) 25 mcg PRN Q5MIN PRN IVP MILD PAIN 1-3; Start 04/07/21 at 21:30; Stop 04/08/21 at 21:29 Fentanyl Citrate (Fentanyl 2ml Vial) 50 mcg PRN Q5MIN PRN IVP MODERATE PAIN 4- 6; Start 04/07/21 at 21:30; Stop 04/08/21 at 21:29 Morphine Sulfate (Morphine Sulfate) 1 mg PRN Q10MIN PRN IVP SEVERE PAIN 7-10; Start 04/07/21 at 21:30; Stop 04/08/21 at 21:29 Ringer's Solution 1,000 ml @ 30 mls/hr Q24H IV ; Start 04/07/21 at 21:30; Stop 04/08/21 at 09:29; Status DC Hydromorphone HCl (Dilaudid) 0.5 mg PRN Q10MIN PRN IVP SEVERE PAIN 7-10, 2nd CHOICE; Start 04/07/21 at 21:30; Stop 04/08/21 at 21:29 Prochlorperazine Edisylate (Compazine) 5 mg PACU PRN PRN IVP NAUSEA, MRX1; Start 04/07/21 at 21:30; Stop 04/08/21 at 21:29 Ondansetron HCl (Zofran) 4 mg PRN Q8HRS PRN IVP NAUSEA/VOMITING; Start 04/07/21 at 21:45; Stop 04/08/21 at 21:44 Nicardipine HCl (Cardene) 25 mg STK-MED ONCE IV ; Start 04/07/21 at 22:07; Stop 04/07/21 at 22:07; Status DC Sevoflurane (Ultane) 60 ml STK-MED ONCE IH ; Start 04/07/21 at 22:07; Stop 04/07/21 at 22:08; Status DC Nicardipine HCl 50 mg/Sodium Chloride 250 ml @ 25 mls/hr TITRATE PRN IV PER PROTOCOL Last administered on 04/07/21at 22:47; Start 04/07/21 at 22:15 Hydralazine HCl (Apresoline Inj) 5 mg PRN Q6HRS PRN IVP TO KEEP SBP<140mmHg; Start 04/07/21 at 22:15 Al Hydroxide/Mg Hydroxide (Mylanta Plus Xs) 30 ml PRN Q3HRS PRN PO HEARTBURN / GAS; Start 04/07/21 at 22:15 Calcium Carbonate/ Glycine (Tums) 500 mg PRN Q3HRS PRN PO INDIGESTION; Start 04/07/21 at 22:15 Diphenhydramine HCl (Benadryl) 25 mg PRN Q6HRS PRN PO ITCHING; Start 04/07/21 at 22:15 Sodium Chloride (Normal Saline Flush) 3 ml QSHIFT PRN IV AFTER MEDS AND BLOOD DRAWS; Start 04/07/21 at 22:15 Potassium Chloride/Dextrose/ Sod Cl 1,000 ml @ 75 mls/hr [id number] IV Last admin istered on 04/07/21at 23:14; Start 04/07/21 at 22:30; Stop 04/08/21 at 11:34; Status DC Dextrose (Dextrose 50%-Water Syringe) 12.5 gm PRN Q15MIN PRN IV SEE COMMENTS; Start 04/07/21 at 22:15 Acetaminophen/ Hydrocodone Bitart (Lortab 5/325) 1 tab PRN Q4HRS PRN PO MILD PAIN 1-3; Start 04/07/21 at 22:15 Acetaminophen (Tylenol) 650 mg Q8HRS PO Last administered on 04/08/21at 12:37; Start 04/08/21 at 06:00 Docusate Sodium (Colace) 100 mg BID PO Last administered on 04/08/21at 12:36; Start 04/08/21 at 09:00 Magnesium Hydroxide (Milk Of Magnesia) 2,400 mg PRN Q12HR PRN PO CONSTIPATION; Start 04/07/21 at 22:15 Cefazolin Sodium (Ancef) 1 gm Q8H IVP Last administered on 04/08/21at 12:37; Start 04/08/21 at 04:30; Stop 04/08/21 at 20:31 ROS: Review of Systems Review of System Patient is very pleasant, does reports headache otherwise no complaints. Unknown how well he was able to understand my questions Physical Exam: Vital Signs: Vital Signs Date Time Temp Pulse Resp B/P (MAP) Pulse Ox O2 Delivery O2 Flow Rate FiO2 04/08/21 12:37 80 16 118/59 (78) 95 Room Air 04/08/21 12:17 97.6 97.6 04/08/21 11:00 2.0 Physcial Exam: GEN: No distress, alert to self HEENT: Sutures and drain in place from craniotomy EYES: Extraocular muscles are intact, pupil are equally round and reactive to light and accommodation MUSCULOSKELETAL: Well developed , well nourished ENDOCRINE: No thyromegaly was palpated LYMPHATICS: No cervical chain or axillary nodes were noted HEMATOPOIETIC: No bruising NECK: Supple, no JVD, no thyromegaly was noted LUNGS: Clear to auscultation in all lung greenberg without rhonchi or wheezing HEART: RRR, S1, S2 present. Peripheral pulses intact, no obvious murmurs noted ABDOMEN: Soft, nontender. Positive bowel sounds, no organomegaly, normal bowel sounds EXTREMITIES: Without clubbing, cyanosis, or edema. Pedal pulses intact. NEUROLOGIC: Normal speech and tone. , moves all extremities, no obvious focal deficits but patient on bedrest PSYCHIATRIC: Normal affect, normal mood. Stable SKIN: No ulcerations or rashes, good skin turgor, no jaundice VASCULAR: Good capillary refill, neurovascular bundle appears to be intact Labs: Labs: Laboratory Tests Test 04/07/21 17:50 04/07/21 17:55 04/07/21 19:15 04/07/21 23:20 Urine Collection Type Unknown Urine Color Yellow Urine Clarity Clear Urine pH 6.0 (<5.0-8.0) Urine Specific Welcome 1.020 (1.000-1.030) Urine Protein 100 mg/dL (NEG-TRACE) Urine Glucose (UA) Negative mg/dL (NEG) Urine Ketones (Stick) 40 mg/dL (NEG) Urine Blood Small (NEG) Urine Nitrite Negative (NEG) Urine Bilirubin Small (NEG) Urine Urobilinogen Dipstick 1.0 mg/dL (0.2 mg/dL) Urine Leukocyte Esterase Negative (NEG) Urine RBC 1-2 /HPF (0-2) Urine WBC 1-4 /HPF (0-4) Urine Transitional Epithelial Cells Few /LPF Urine Bacteria 0 /HPF (0-FEW) Urine Mucus Slight /LPF Urine Opiates Screen Neg (NEG) Urine Methadone Screen Neg (NEG) Urine Barbiturates Neg (NEG) Urine Phencyclidine Screen Neg (NEG) Urine Amphetamine/Methamphetamine Neg (NEG) Urine Benzodiazepines Screen Neg (NEG) Urine Cocaine Screen Neg (NEG) Urine Cannabinoids Screen Neg (NEG) Urine Ethyl Alcohol Neg (NEG) White Blood Count 8.7 x10^3/uL (4.0-11.0) Red Blood Count 3.85 x10^6/uL (4.30-5.70) Hemoglobin 13.2 g/dL (13.0-17.5) Hematocrit 37.4 % (39.0-53.0) Mean Corpuscular Volume 97 fL (79-100) Mean Corpuscular Hemoglobin 34 pg (25-35) Mean Corpuscular Hemoglobin Concent 35 g/dL (31-37) Red Cell Distribution Width 15.1 % (11.5-14.5) Platelet Count 96 x10^3/uL (140-400) Neutrophils (%) (Auto) 89 % (31-73) Lymphocytes (%) (Auto) 6 % (24-48) Monocytes (%) (Auto) 4 % (0-9) Eosinophils (%) (Auto) 0 % (0-3) Basophils (%) (Auto) 0 % (0-3) Neutrophils # (Auto) 7.8 x10^3/uL (1.8-7.7) Lymphocytes # (Auto) 0.5 x10^3/uL (1.0-4.8) Monocytes # (Auto) 0.4 x10^3/uL (0.0-1.1) Eosinophils # (Auto) 0.0 x10^3/uL (0.0-0.7) Basophils # (Auto) 0.0 x10^3/uL (0.0-0.2) Segmented Neutrophils % 86 % (35-66) Band Neutrophils % 1 % (0-9) Lymphocytes % 10 % (24-48) Monocytes % 3 % (0-10) Platelet Estimate Decreased (ADEQUATE) Sodium Level 140 mmol/L (136-145) Potassium Level 3.8 mmol/L (3.5-5.1) Chloride Level 101 mmol/L (98-107) Carbon Dioxide Level 26 mmol/L (21-32) Anion Gap 13 (6-14) Blood Urea Nitrogen 28 mg/dL (8-26) Creatinine 1.3 mg/dL (0.7-1.3) Estimated GFR (Cockcroft-Gault) 52.6 BUN/Creatinine Ratio 22 (6-20) Glucose Level 128 mg/dL (70-99) Lactic Acid Level 2.7 mmol/L (0.4-2.0) 1.1 mmol/L (0.4-2.0) Calcium Level 9.3 mg/dL (8.5-10.1) Magnesium Level 2.1 mg/dL (1.8-2.4) Total Bilirubin 1.0 mg/dL (0.2-1.0) Aspartate Amino Transf (AST/SGOT) 27 U/L (15-37) Alanine Aminotransferase (ALT/SGPT) 7 U/L (16-63) Alkaline Phosphatase 82 U/L (46-116) Creatine Kinase 121 U/L (39-308) Creatine Kinase MB (Mass) 1.7 ng/mL (0.0-3.6) Creatine Kinase MB Relative Index 1.4 % (0-4) Troponin I Quantitative 0.021 ng/mL (0.000-0.055) 0.048 ng/mL (0.000-0.055) MO-Jro-D-Type Natriuretic Peptide 46419 pg/mL (0-449) Total Protein 8.3 g/dL (6.4-8.2) Albumin 3.3 g/dL (3.4-5.0) Albumin/Globulin Ratio 0.7 (1.0-1.7) Procalcitonin 0.06 ng/mL (0.00-0.10) Thyroid Stimulating Hormone (TSH) 2.295 uIU/mL (0.358-3.74) SARS-CoV-2 RNA (OVIDIO) Negative (Negative) SARS-CoV-2 Antigen (Rapid) Negative (NEGATIVE) Prothrombin Time 15.4 SEC (11.7-14.0) Prothromb Time International Ratio 1.2 (0.8-1.1) Activated Partial Thromboplast Time 30 SEC (24-38) Test 04/08/21 06:15 White Blood Count 7.1 x10^3/uL (4.0-11.0) Red Blood Count 3.22 x10^6/uL (4.30-5.70) Hemoglobin 11.1 g/dL (13.0-17.5) Hematocrit 31.1 % (39.0-53.0) Mean Corpuscular Volume 97 fL (79-100) Mean Corpuscular Hemoglobin 35 pg (25-35) Mean Corpuscular Hemoglobin Concent 36 g/dL (31-37) Red Cell Distribution Width 15.1 % (11.5-14.5) Platelet Count 66 x10^3/uL (140-400) Neutrophils (%) (Auto) 94 % (31-73) Lymphocytes (%) (Auto) 4 % (24-48) Monocytes (%) (Auto) 2 % (0-9) Eosinophils (%) (Auto) 0 % (0-3) Basophils (%) (Auto) 0 % (0-3) Neutrophils # (Auto) 6.7 x10^3/uL (1.8-7.7) Lymphocytes # (Auto) 0.3 x10^3/uL (1.0-4.8) Monocytes # (Auto) 0.2 x10^3/uL (0.0-1.1) Eosinophils # (Auto) 0.0 x10^3/uL (0.0-0.7) Basophils # (Auto) 0.0 x10^3/uL (0.0-0.2) Sodium Level 140 mmol/L (136-145) Potassium Level 3.7 mmol/L (3.5-5.1) Chloride Level 104 mmol/L (98-107) Carbon Dioxide Level 29 mmol/L (21-32) Anion Gap 7 (6-14) Blood Urea Nitrogen 27 mg/dL (8-26) Creatinine 1.1 mg/dL (0.7-1.3) Estimated GFR (Cockcroft-Gault) 63.8 BUN/Creatinine Ratio 25 (6-20) Glucose Level 146 mg/dL (70-99) Calcium Level 8.2 mg/dL (8.5-10.1) Total Bilirubin 0.7 mg/dL (0.2-1.0) Aspartate Amino Transf (AST/SGOT) 22 U/L (15-37) Alanine Aminotransferase (ALT/SGPT) 7 U/L (16-63) Alkaline Phosphatase 71 U/L (46-116) Total Protein 6.7 g/dL (6.4-8.2) Albumin 2.6 g/dL (3.4-5.0) Albumin/Globulin Ratio 0.6 (1.0-1.7) Laboratory Tests Test 04/07/21 17:50 04/07/21 17:55 04/07/21 19:15 04/07/21 23:20 Urine Collection Type Unknown Urine Color Yellow Urine Clarity Clear Urine pH 6.0 (<5.0-8.0) Urine Specific [place] 1.020 (1.000-1.030) Urine Protein 100 mg/dL (NEG-TRACE) Urine Glucose (UA) Negative mg/dL (NEG) Urine Ketones (Stick) 40 mg/dL (NEG) Urine Blood Small (NEG) Urine Nitrite Negative (NEG) Urine Bilirubin Small (NEG) Urine Urobilinogen Dipstick 1.0 mg/dL (0.2 mg/dL) Urine Leukocyte Esterase Negative (NEG) Urine RBC 1-2 /HPF (0-2) Urine WBC 1-4 /HPF (0-4) Urine Transitional Epithelial Cells Few /LPF Urine Bacteria 0 /HPF (0-FEW) Urine Mucus Slight /LPF Urine Opiates Screen Neg (NEG) Urine Methadone Screen Neg (NEG) Urine Barbiturates Neg (NEG) Urine Phencyclidine Screen Neg (NEG) Urine Amphetamine/Methamphetamine Neg (NEG) Urine Benzodiazepines Screen Neg (NEG) Urine Cocaine Screen Neg (NEG) Urine Cannabinoids Screen Neg (NEG) Urine Ethyl Alcohol Neg (NEG) White Blood Count 8.7 x10^3/uL (4.0-11.0) Red Blood Count 3.85 x10^6/uL (4.30-5.70) Hemoglobin 13.2 g/dL (13.0-17.5) Hematocrit 37.4 % (39.0-53.0) Mean Corpuscular Volume 97 fL (79-100) Mean Corpuscular Hemoglobin 34 pg (25-35) Mean Corpuscular Hemoglobin Concent 35 g/dL (31-37) Red Cell Distribution Width 15.1 % (11.5-14.5) Platelet Count 96 x10^3/uL (140-400) Neutrophils (%) (Auto) 89 % (31-73) Lymphocytes (%) (Auto) 6 % (24-48) Monocytes (%) (Auto) 4 % (0-9) Eosinophils (%) (Auto) 0 % (0-3) Basophils (%) (Auto) 0 % (0-3) Neutrophils # (Auto) 7.8 x10^3/uL (1.8-7.7) Lymphocytes # (Auto) 0.5 x10^3/uL (1.0-4.8) Monocytes # (Auto) 0.4 x10^3/uL (0.0-1.1) Eosinophils # (Auto) 0.0 x10^3/uL (0.0-0.7) Basophils # (Auto) 0.0 x10^3/uL (0.0-0.2) Segmented Neutrophils % 86 % (35-66) Band Neutrophils % 1 % (0-9) Lymphocytes % 10 % (24-48) Monocytes % 3 % (0-10) Platelet Estimate Decreased (ADEQUATE) Sodium Level 140 mmol/L (136-145) Potassium Level 3.8 mmol/L (3.5-5.1) Chloride Level 101 mmol/L (98-107) Carbon Dioxide Level 26 mmol/L (21-32) Anion Gap 13 (6-14) Blood Urea Nitrogen 28 mg/dL (8-26) Creatinine 1.3 mg/dL (0.7-1.3) Estimated GFR (Cockcroft-Gault) 52.6 BUN/Creatinine Ratio 22 (6-20) Glucose Level 128 mg/dL (70-99) Lactic Acid Level 2.7 mmol/L (0.4-2.0) 1.1 mmol/L (0.4-2.0) Calcium Level 9.3 mg/dL (8.5-10.1) Magnesium Level 2.1 mg/dL (1.8-2.4) Total Bilirubin 1.0 mg/dL (0.2-1.0) Aspartate Amino Transf (AST/SGOT) 27 U/L (15-37) Alanine Aminotransferase (ALT/SGPT) 7 U/L (16-63) Alkaline Phosphatase 82 U/L (46-116) Creatine Kinase 121 U/L (39-308) Creatine Kinase MB (Mass) 1.7 ng/mL (0.0-3.6) Creatine Kinase MB Relative Index 1.4 % (0-4) Troponin I Quantitative 0.021 ng/mL (0.000-0.055) 0.048 ng/mL (0.000-0.055) CF-Xhv-L-Type Natriuretic Peptide 61448 pg/mL (0-449) Total Protein 8.3 g/dL (6.4-8.2) Albumin 3.3 g/dL (3.4-5.0) Albumin/Globulin Ratio 0.7 (1.0-1.7) Procalcitonin 0.06 ng/mL (0.00-0.10) Thyroid Stimulating Hormone (TSH) 2.295 uIU/mL (0.358-3.74) SARS-CoV-2 RNA (OVIDIO) Negative (Negative) SARS-CoV-2 Antigen (Rapid) Negative (NEGATIVE) Prothrombin Time 15.4 SEC (11.7-14.0) Prothromb Time International Ratio 1.2 (0.8-1.1) Activated Partial Thromboplast Time 30 SEC (24-38) Test 04/08/21 06:15 White Blood Count 7.1 x10^3/uL (4.0-11.0) Red Blood Count 3.22 x10^6/uL (4.30-5.70) Hemoglobin 11.1 g/dL (13.0-17.5) Hematocrit 31.1 % (39.0-53.0) Mean Corpuscular Volume 97 fL (79-100) Mean Corpuscular Hemoglobin 35 pg (25-35) Mean Corpuscular Hemoglobin Concent 36 g/dL (31-37) Red Cell Distribution Width 15.1 % (11.5-14.5) Platelet Count 66 x10^3/uL (140-400) Neutrophils (%) (Auto) 94 % (31-73) Lymphocytes (%) (Auto) 4 % (24-48) Monocytes (%) (Auto) 2 % (0-9) Eosinophils (%) (Auto) 0 % (0-3) Basophils (%) (Auto) 0 % (0-3) Neutrophils # (Auto) 6.7 x10^3/uL (1.8-7.7) Lymphocytes # (Auto) 0.3 x10^3/uL (1.0-4.8) Monocytes # (Auto) 0.2 x10^3/uL (0.0-1.1) Eosinophils # (Auto) 0.0 x10^3/uL (0.0-0.7) Basophils # (Auto) 0.0 x10^3/uL (0.0-0.2) Sodium Level 140 mmol/L (136-145) Potassium Level 3.7 mmol/L (3.5-5.1) Chloride Level 104 mmol/L (98-107) Carbon Dioxide Level 29 mmol/L (21-32) Anion Gap 7 (6-14) Blood Urea Nitrogen 27 mg/dL (8-26) Creatinine 1.1 mg/dL (0.7-1.3) Estimated GFR (Cockcroft-Gault) 63.8 BUN/Creatinine Ratio 25 (6-20) Glucose Level 146 mg/dL (70-99) Calcium Level 8.2 mg/dL (8.5-10.1) Total Bilirubin 0.7 mg/dL (0.2-1.0) Aspartate Amino Transf (AST/SGOT) 22 U/L (15-37) Alanine Aminotransferase (ALT/SGPT) 7 U/L (16-63) Alkaline Phosphatase 71 U/L (46-116) Total Protein 6.7 g/dL (6.4-8.2) Albumin 2.6 g/dL (3.4-5.0) Albumin/Globulin Ratio 0.6 (1.0-1.7) Assessment/Plan Assessment/Plan 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
--- NOTE | 2021-04-08 16:20 | NUR ---
SS following for discharge planning. SS reviewed pt chart and discussed with pt RN. Pt is from home with spouse and is currently on room air. Pt had craniotomy on 04/07/2021. COVID19 negative. Pt on IV Ancef. SS will continue to follow for discharge planning.
[2021-04-09] VITALS (7 sets, daily range): BP systolic 81–171; BP diastolic 55–84
[2021-04-09] MEDS: ACETAMINOPHEN 325 MG TABLET. PO SCH ×3 (05:45→21:25)
[2021-04-09] MEDS: DOCUSATE SODIUM 100 MG CAPSULE. PO SCH ×2 (08:22→21:25)
--- NOTE | 2021-04-09 08:41 | EKG ---
[facility] [address] [place] [address] Test Date: 2021-04-09 Test Time: 08:38:28 Pat Name: YON ARTIS Department: Room: 646 1 Gender: M Hat Trimmer: LASHAE : 1935 Requested By: MARICRUZ EDMOND Order Number: [id number] Reading MD: Measurements Intervals [place] Rate: 159 P: 66 FL: 102 QRS: 0 QRSD: 80 T: 251 QT: 270 QTc: 443 Interpretive Statements SINUS TACHYCARDIA ATRIAL PREMATURE COMPLEX(ES) LEFTWARD AXIS CONSIDER RIGHT VENTRICULAR HYPERTROPHY ST ABNORMALITY, POSSIBLE ANTERIOR SUBENDOCARDIAL INJURY INFERIOR SUBENDOCARDIAL INJURY ABNORMAL ECG RI6.02 Compared to ECG 04/07/2021 19:00:02 Left-axis deviation now present ST (T wave) deviation now present Sinus rhythm no longer present Atrial abnormality no longer present Prolonged QT interval no longer present
[2021-04-09] MEDS ORDERED: METOPROLOL IV PUSH 5 MG/5 ML VIAL. IVP ONE (09:30)
--- NOTE | 2021-04-09 10:33 | PDOC2 ---
JU VALDIVIA STUDIO DIRECTOR 04/09/21 1033: CARDIAC CONSULT DATE OF CONSULT Date of Consult DATE: 04/09/21 TIME: 10:18 REASON FOR CONSULT Reason for Consult: Ross REFERRING PHYSICIAN Referring Physician: Tachycardia SOURCE Source: Chart review, Patient HISTORY OF PRESENT ILLNESS HISTORY OF PRESENT ILLNESS This is an 85 yo male admitted for weakness and altered mental status. He does have hx of dementia. He did have falls in the past with recent one that was accounted for was about 2 months ago. Further testing revealed left chronic subdural hematoma with midline shift and he has been noted with right side hemiparesis. He is a poor historian. This morning he was noted with fast HR and currently on AFIB RVR hence this consult. He is POD#1 craniotomy. He is a poor historian. Could not provide details of medical history and medications. PAST MEDICAL HISTORY Cardiovascular: HTN, Hyperlipidemia Heme/Onc: Cancer (wathins tumor) Musculoskeletal: Osteoarthritis ENT: Allergic Rhinitis, Other (ZUNI) Renal/: Benign prostatic enlarg. PAST SURGICAL HISTORY Past Surgical History: Other (superficial parotidectomy) FAMILY HISTORY Family History: Coronary Artery Disease SOCIAL HISTORY Smoke: Quit (?) ALCOHOL: none CURRENT MEDICATIONS CURRENT MEDICATIONS Current Medications Medications (Trade) Dose Ordered Sig/Jennifer Route PRN Reason Start Time Stop Time Status Last Admin Dose Admin Metoprolol Tartrate (Lopressor Vial) 5 mg 1X ONCE IVP 04/09/21 09:30 04/09/21 09:31 DC 04/09/21 08:48 ALLERGIES ALLERGIES: Uncoded Allergies: "arthritis medication" (Allergy, Unknown, 04/07/21) ROS Review of System limited poor historian PHYSICAL EXAM General: Alert, Oriented X3, Cooperative, No acute distress HEENT: Atraumatic, Mucous membr. moist/pink Lungs: Other (diminished) Heart: Other (AFIB RVR) Abdomen: Soft, No tenderness Extremities: No cyanosis, No edema Skin: No breakdown, No significant lesion, Other (left parietal surgical incision) Neuro: Normal speech, Sensation intact Psych/Mental Status: Mental status NL, Mood NL MUSCULOSKELETAL: Osteoarthritic changes both hands VITALS/I&O VITALS/I&O: Vital Signs Date Time Temp Pulse Resp B/P (MAP) Pulse Ox O2 Delivery O2 Flow Rate FiO2 04/09/21 08:48 160 04/09/21 07:00 97.5 16 138/65 (89) 93 Room Air 97.5 04/08/21 11:00 2.0 I & O 04/08/21 04/08/21 04/09/21 15:00 23:00 07:00 Intake Total 240 ml 360 ml 0 ml Output Total 150 ml 170 ml 150 ml Balance 90 ml 190 ml -150 ml ASSESSMENT/PLAN ASSESSMENT/PLAN 1. Left chronic subdural hematoma with midline shift: S/P left central craniotomy with evacuation of chronic subdural hematoma, placement of drain POD#1 2. AFIB RVR: new finding. Asymptomatic 3. Thrombocytopenia: PLT at 66 4. Hx of falls 5. Dementia 6. Mild acute diastolic CHF: Due to RVR. clinically compensated Recommendations 1. Metoprolol was given. Dig IV x1. Antiarrhythmics would be considered if AFIB is refractory 2. Unable to start on any antiplatelets and not a candidate for fdc anticoagulation due to SDH and low PLT 3. TTE 4. Replace K and Mg as warranted. BP remains at low end. Low rate maintenance IVF 5. MCRAS GRAVES MD 04/10/21 1251: CARDIAC CONSULT ASSESSMENT/PLAN ASSESSMENT/PLAN Patient seen and examined 04/09/2021. Agree with RING MAKER's assessment and plan. Atrial fibrillation with RVR, newly diagnosed. Continue beta-blockers. 2D echo showed normal LV systolic function. Patient is a poor candidate for long-term anticoagulation due to thrombocytopenia and subdural hematoma. Mild acute diastolic heart failure better compensated. Thank you for your consultation JU VALDIVIA APRN Apr 09, 2021 10:33 RAS MOHR MD Apr 10, 2021 12:51
[2021-04-09] MEDS ORDERED: DIGOXIN IV 500 MCG/2 ML AMPUL. IV ONE (10:45)
[2021-04-09 11:17] LABS: CALCIUM 8.5 mg/dL (8.5-10.1); CREATININE 1.5 mg/dL (0.7-1.3); GFR 44.6; POTASSIUM 3.2 mmol/L (3.5-5.1)
--- NOTE | 2021-04-09 12:28 | PDOC ---
[employer] PROGRESS NOTE Date of Service DOS: DATE: 04/09/21 TIME: 12:24 Chief Complaint Chief Complaint Subdural hematoma Weakness Ams History of Present Illness History of Present Illness 04/09/21 Pt seen and examined at bedside Pt in NAD Pt cannot remember how he hurt his head D/W RN Chart reviewed Vitals/I&O Vitals/I&O: Vital Signs Date Time Temp Pulse Resp B/P (MAP) Pulse Ox O2 Delivery O2 Flow Rate FiO2 04/09/21 11:32 69 106/58 (74) 04/09/21 11:00 97.9 18 94 Room Air 97.9 04/08/21 11:00 2.0 I & O 04/08/21 04/08/21 04/09/21 15:00 23:00 07:00 Intake Total 240 ml 360 ml 0 ml Output Total 150 ml 170 ml 150 ml Balance 90 ml 190 ml -150 ml Physical Exam General: Alert, Cooperative, No acute distress Heart: Regular rate, Normal S1 Lungs: Clear Abdomen: Soft Skin: Other (C,D,I.Drain removed without difficulty, dressing changed, thu intact) Labs Labs: Laboratory Tests Test 04/09/21 10:33 Sodium Level 140 mmol/L (136-145) Potassium Level 3.2 mmol/L (3.5-5.1) Chloride Level 103 mmol/L (98-107) Carbon Dioxide Level 33 mmol/L (21-32) Anion Gap 4 (6-14) Blood Urea Nitrogen 31 mg/dL (8-26) Creatinine 1.5 mg/dL (0.7-1.3) Estimated GFR (Cockcroft-Gault) 44.6 Glucose Level 124 mg/dL (70-99) Calcium Level 8.5 mg/dL (8.5-10.1) Magnesium Level 2.0 mg/dL (1.8-2.4) Review of Systems Review of Systems: Pt denies chest pain Pt denies N/V Assessment and Plan Assessmemt and Plan 04/09/21 Assessment: Tachycardia Subdural hematoma Weakness Ams Plan: Wound care Cardiac monitoring Appreciate cardiology input Continue digoxin and metoprolol D/C disposition pending DVT prophylaxis PTOT Full code Problems Medical Problems: (1) Midline shift of brain due to hematoma Status: Acute Comment Review of Relevant I have reviewed the following items emperatriz (where applicable) has been applied. Medications: Current Medications Medications (Trade) Dose Ordered Sig/Jennifer Route PRN Reason Start Time Stop Time Status Last Admin Dose Admin Metoprolol Tartrate (Lopressor Vial) 5 mg 1X ONCE IVP 04/09/21 09:30 04/09/21 09:31 DC 04/09/21 08:48 Digoxin (Lanoxin) 500 mcg 1X ONCE IV 04/09/21 10:45 04/09/21 10:46 DC 04/09/21 10:30 Justifications for Admission Other Justification MARKIE ALMODOVAR III DO Apr 09, 2021 12:28
--- NOTE | 2021-04-09 12:58 | PDOC ---
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, placement of drain awake, alert no complaints Objective Objective Vital Signs Date Time Temp Pulse Resp B/P (MAP) Pulse Ox O2 Delivery O2 Flow Rate FiO2 04/09/21 11:32 69 106/58 (74) 04/09/21 11:00 97.9 18 94 Room Air 97.9 04/08/21 11:00 2.0 Intake and Output 04/09/21 07:00 Intake Total 600 ml Output Total 470 ml Balance 130 ml Intake Oral 600 ml Output Urine Total 470 ml Physical Exam General: Alert, Cooperative, No acute distress MUSCULOSKELETAL: Other (GUEVARA) Skin: Other (dressing C,D,I) Assessment Assessment Problems Medical Problems: (1) Midline shift of brain due to hematoma Status: Acute Plan Plan of Care PT/ OT Dr. Joseph consulted D/W RN Comment Review of Relevant I have reviewed the following items emperatriz (where applicable) has been applied. Labs Laboratory Tests Test 04/07/21 17:50 04/07/21 17:55 04/07/21 19:15 04/07/21 23:20 Urine Collection Type Unknown Urine Color Yellow Urine Clarity Clear Urine pH 6.0 (<5.0-8.0) Urine Specific [place] 1.020 (1.000-1.030) Urine Protein 100 mg/dL (NEG-TRACE) Urine Glucose (UA) Negative mg/dL (NEG) Urine Ketones (Stick) 40 mg/dL (NEG) Urine Blood Small (NEG) Urine Nitrite Negative (NEG) Urine Bilirubin Small (NEG) Urine Urobilinogen Dipstick 1.0 mg/dL (0.2 mg/dL) Urine Leukocyte Esterase Negative (NEG) Urine RBC 1-2 /HPF (0-2) Urine WBC 1-4 /HPF (0-4) Urine Transitional Epithelial Cells Few /LPF Urine Bacteria 0 /HPF (0-FEW) Urine Mucus Slight /LPF Urine Opiates Screen Neg (NEG) Urine Methadone Screen Neg (NEG) Urine Barbiturates Neg (NEG) Urine Phencyclidine Screen Neg (NEG) Urine Amphetamine/Methamphetamine Neg (NEG) Urine Benzodiazepines Screen Neg (NEG) Urine Cocaine Screen Neg (NEG) Urine Cannabinoids Screen Neg (NEG) Urine Ethyl Alcohol Neg (NEG) White Blood Count 8.7 x10^3/uL (4.0-11.0) Red Blood Count 3.85 x10^6/uL (4.30-5.70) Hemoglobin 13.2 g/dL (13.0-17.5) Hematocrit 37.4 % (39.0-53.0) Mean Corpuscular Volume 97 fL (79-100) Mean Corpuscular Hemoglobin 34 pg (25-35) Mean Corpuscular Hemoglobin Concent 35 g/dL (31-37) Red Cell Distribution Width 15.1 % (11.5-14.5) Platelet Count 96 x10^3/uL (140-400) Neutrophils (%) (Auto) 89 % (31-73) Lymphocytes (%) (Auto) 6 % (24-48) Monocytes (%) (Auto) 4 % (0-9) Eosinophils (%) (Auto) 0 % (0-3) Basophils (%) (Auto) 0 % (0-3) Neutrophils # (Auto) 7.8 x10^3/uL (1.8-7.7) Lymphocytes # (Auto) 0.5 x10^3/uL (1.0-4.8) Monocytes # (Auto) 0.4 x10^3/uL (0.0-1.1) Eosinophils # (Auto) 0.0 x10^3/uL (0.0-0.7) Basophils # (Auto) 0.0 x10^3/uL (0.0-0.2) Segmented Neutrophils % 86 % (35-66) Band Neutrophils % 1 % (0-9) Lymphocytes % 10 % (24-48) Monocytes % 3 % (0-10) Platelet Estimate Decreased (ADEQUATE) Sodium Level 140 mmol/L (136-145) Potassium Level 3.8 mmol/L (3.5-5.1) Chloride Level 101 mmol/L (98-107) Carbon Dioxide Level 26 mmol/L (21-32) Anion Gap 13 (6-14) Blood Urea Nitrogen 28 mg/dL (8-26) Creatinine 1.3 mg/dL (0.7-1.3) Estimated GFR (Cockcroft-Gault) 52.6 BUN/Creatinine Ratio 22 (6-20) Glucose Level 128 mg/dL (70-99) Lactic Acid Level 2.7 mmol/L (0.4-2.0) 1.1 mmol/L (0.4-2.0) Calcium Level 9.3 mg/dL (8.5-10.1) Magnesium Level 2.1 mg/dL (1.8-2.4) Total Bilirubin 1.0 mg/dL (0.2-1.0) Aspartate Amino Transf (AST/SGOT) 27 U/L (15-37) Alanine Aminotransferase (ALT/SGPT) 7 U/L (16-63) Alkaline Phosphatase 82 U/L (46-116) Creatine Kinase 121 U/L (39-308) Creatine Kinase MB (Mass) 1.7 ng/mL (0.0-3.6) Creatine Kinase MB Relative Index 1.4 % (0-4) Troponin I Quantitative 0.021 ng/mL (0.000-0.055) 0.048 ng/mL (0.000-0.055) OW-Qez-W-Type Natriuretic Peptide 39449 pg/mL (0-449) Total Protein 8.3 g/dL (6.4-8.2) Albumin 3.3 g/dL (3.4-5.0) Albumin/Globulin Ratio 0.7 (1.0-1.7) Procalcitonin 0.06 ng/mL (0.00-0.10) Thyroid Stimulating Hormone (TSH) 2.295 uIU/mL (0.358-3.74) SARS-CoV-2 RNA (OVIDIO) Negative (Negative) SARS-CoV-2 Antigen (Rapid) Negative (NEGATIVE) Prothrombin Time 15.4 SEC (11.7-14.0) Prothromb Time International Ratio 1.2 (0.8-1.1) Activated Partial Thromboplast Time 30 SEC (24-38) Test 04/08/21 06:15 04/09/21 10:33 White Blood Count 7.1 x10^3/uL (4.0-11.0) Red Blood Count 3.22 x10^6/uL (4.30-5.70) Hemoglobin 11.1 g/dL (13.0-17.5) Hematocrit 31.1 % (39.0-53.0) Mean Corpuscular Volume 97 fL (79-100) Mean Corpuscular Hemoglobin 35 pg (25-35) Mean Corpuscular Hemoglobin Concent 36 g/dL (31-37) Red Cell Distribution Width 15.1 % (11.5-14.5) Platelet Count 66 x10^3/uL (140-400) Neutrophils (%) (Auto) 94 % (31-73) Lymphocytes (%) (Auto) 4 % (24-48) Monocytes (%) (Auto) 2 % (0-9) Eosinophils (%) (Auto) 0 % (0-3) Basophils (%) (Auto) 0 % (0-3) Neutrophils # (Auto) 6.7 x10^3/uL (1.8-7.7) Lymphocytes # (Auto) 0.3 x10^3/uL (1.0-4.8) Monocytes # (Auto) 0.2 x10^3/uL (0.0-1.1) Eosinophils # (Auto) 0.0 x10^3/uL (0.0-0.7) Basophils # (Auto) 0.0 x10^3/uL (0.0-0.2) Sodium Level 140 mmol/L (136-145) 140 mmol/L (136-145) Potassium Level 3.7 mmol/L (3.5-5.1) 3.2 mmol/L (3.5-5.1) Chloride Level 104 mmol/L (98-107) 103 mmol/L (98-107) Carbon Dioxide Level 29 mmol/L (21-32) 33 mmol/L (21-32) Anion Gap 7 (6-14) 4 (6-14) Blood Urea Nitrogen 27 mg/dL (8-26) 31 mg/dL (8-26) Creatinine 1.1 mg/dL (0.7-1.3) 1.5 mg/dL (0.7-1.3) Estimated GFR (Cockcroft-Gault) 63.8 44.6 BUN/Creatinine Ratio 25 (6-20) Glucose Level 146 mg/dL (70-99) 124 mg/dL (70-99) Calcium Level 8.2 mg/dL (8.5-10.1) 8.5 mg/dL (8.5-10.1) Total Bilirubin 0.7 mg/dL (0.2-1.0) Aspartate Amino Transf (AST/SGOT) 22 U/L (15-37) Alanine Aminotransferase (ALT/SGPT) 7 U/L (16-63) Alkaline Phosphatase 71 U/L (46-116) Total Protein 6.7 g/dL (6.4-8.2) Albumin 2.6 g/dL (3.4-5.0) Albumin/Globulin Ratio 0.6 (1.0-1.7) Magnesium Level 2.0 mg/dL (1.8-2.4) Laboratory Tests Test 04/09/21 10:33 Sodium Level 140 mmol/L (136-145) Potassium Level 3.2 mmol/L (3.5-5.1) Chloride Level 103 mmol/L (98-107) Carbon Dioxide Level 33 mmol/L (21-32) Anion Gap 4 (6-14) Blood Urea Nitrogen 31 mg/dL (8-26) Creatinine 1.5 mg/dL (0.7-1.3) Estimated GFR (Cockcroft-Gault) 44.6 Glucose Level 124 mg/dL (70-99) Calcium Level 8.5 mg/dL (8.5-10.1) Magnesium Level 2.0 mg/dL (1.8-2.4) Microbiology 04/07/21 Blood Culture - Preliminary, Resulted NO GROWTH AFTER 1 DAY Medications Current Medications Cefazolin Sodium (Ancef) 1 gm 1X ONCE IVP ; Start 04/07/21 at 20:00; Stop 04/07/21 at 20:01; Status Cancel Sodium Chloride 1,000 ml @ 1,000 mls/hr 1X ONCE IV ; Start 04/07/21 at 19:45; Stop 04/07/21 at 20:44; Status Cancel Gelatin (Gelfoam Size 100) 1 each STK-MED ONCE .ROUTE Last administered on 04/07/21at 21:19; Start 04/07/21 at 19:38; Stop 04/07/21 at 19:39; Status DC Bupivacaine HCl/ Epinephrine Bitart (Sensorcain-Epi 0.5% Kit) 30 ml STK-MED ONCE .ROUTE ; Start 04/07/21 at 19:38; Stop 04/07/21 at 19:39; Status DC Cellulose (Surgicel Hemostat 4x8) 1 each STK-MED ONCE .ROUTE ; Start 04/07/21 at 19:38; Stop 04/07/21 at 19:39; Status DC Thrombin 20,000 unit STK-MED ONCE TP Last administered on 04/07/21at 21:19; Start 04/07/21 at 19:38; Stop 04/07/21 at 19:39; Status DC Bupivacaine HCl/ Epinephrine Bitart (Sensorcain-Epi 0.5%-1:[id number] Mpf) 30 ml STK-MED ONCE .ROUTE Last administered on 04/07/21at 21:19; Start 04/07/21 at 19:39; Stop 04/07/21 at 19:39; Status DC Rocuronium Whitman (Zemuron) 50 mg STK-MED ONCE .ROUTE ; Start 04/07/21 at 19:46; Stop 04/07/21 at 19:46; Status DC Dexamethasone Sodium Phosphate (Decadron) 20 mg STK-MED ONCE .ROUTE ; Start 04/07/21 at 19:51; Stop 04/07/21 at 19:51; Status DC Lidocaine HCl (Lidocaine Pf 2% Vial) 5 ml STK-MED ONCE .ROUTE ; Start 04/07/21 at 19:51; Stop 04/07/21 at 19:51; Status DC Ondansetron HCl (Zofran) 4 mg STK-MED ONCE .ROUTE ; Start 04/07/21 at 19:51; Stop 04/07/21 at 19:51; Status DC Propofol (Diprivan) 200 mg STK-MED ONCE IV ; Start 04/07/21 at 19:51; Stop 04/07/21 at 19:51; Status DC Cefazolin Sodium 1 gm/Sodium Chloride 1,000 ml @ 1,000 mls/hr 1X ONCE IRR ; Start 04/07/21 at 20:00; Stop 04/07/21 at 20:59; Status DC Cefazolin Sodium/ Dextrose 50 ml @ As Directed STK-MED ONCE IV ; Start 04/07/21 at 20:29; Stop 04/07/21 at 20:29; Status DC Fentanyl Citrate (Fentanyl 2ml Vial) 25 mcg PRN Q5MIN PRN IVP MILD PAIN 1-3; Start 04/07/21 at 21:30; Stop 04/08/21 at 21:29; Status DC Fentanyl Citrate (Fentanyl 2ml Vial) 50 mcg PRN Q5MIN PRN IVP MODERATE PAIN 4- 6; Start 04/07/21 at 21:30; Stop 04/08/21 at 21:29; Status DC Morphine Sulfate (Morphine Sulfate) 1 mg PRN Q10MIN PRN IVP SEVERE PAIN 7-10; Start 04/07/21 at 21:30; Stop 04/08/21 at 21:29; Status DC Ringer's Solution 1,000 ml @ 30 mls/hr Q24H IV ; Start 04/07/21 at 21:30; Stop 04/08/21 at 09:29; Status DC Hydromorphone HCl (Dilaudid) 0.5 mg PRN Q10MIN PRN IVP SEVERE PAIN 7-10, 2nd CHOICE; Start 04/07/21 at 21:30; Stop 04/08/21 at 21:29; Status DC Prochlorperazine Edisylate (Compazine) 5 mg PACU PRN PRN IVP NAUSEA, MRX1; Start 04/07/21 at 21:30; Stop 04/08/21 at 21:29; Status DC Ondansetron HCl (Zofran) 4 mg PRN Q8HRS PRN IVP NAUSEA/VOMITING; Start 04/07/21 at 21:45; Stop 04/08/21 at 21:44; Status DC Nicardipine HCl (Cardene) 25 mg STK-MED ONCE IV ; Start 04/07/21 at 22:07; Stop 04/07/21 at 22:07; Status DC Sevoflurane (Ultane) 60 ml STK-MED ONCE IH ; Start 04/07/21 at 22:07; Stop 04/07/21 at 22:08; Status DC Nicardipine HCl 50 mg/Sodium Chloride 250 ml @ 25 mls/hr TITRATE PRN IV PER PROTOCOL Last administered on 04/07/21at 22:47; Start 04/07/21 at 22:15 Hydralazine HCl (Apresoline Inj) 5 mg PRN Q6HRS PRN IVP TO KEEP SBP<140mmHg; Start 04/07/21 at 22:15 Al Hydroxide/Mg Hydroxide (Mylanta Plus Xs) 30 ml PRN Q3HRS PRN PO HEARTBURN / GAS; Start 04/07/21 at 22:15 Calcium Carbonate/ Glycine (Tums) 500 mg PRN Q3HRS PRN PO INDIGESTION; Start 04/07/21 at 22:15 Diphenhydramine HCl (Benadryl) 25 mg PRN Q6HRS PRN PO ITCHING; Start 04/07/21 at 22:15 Sodium Chloride (Normal Saline Flush) 3 ml QSHIFT PRN IV AFTER MEDS AND BLOOD DRAWS; Start 04/07/21 at 22:15 Potassium Chloride/Dextrose/ Sod Cl 1,000 ml @ 75 mls/hr Q18T28L IV Last administered on 04/07/21at 23:14; Start 04/07/21 at 22:30; Stop 04/08/21 at 11:34; Status DC Dextrose (Dextrose 50%-Water Syringe) 12.5 gm PRN Q15MIN PRN IV SEE COMMENTS; Start 04/07/21 at 22:15 Acetaminophen/ Hydrocodone Bitart (Lortab 5/325) 1 tab PRN Q4HRS PRN PO MILD PAIN 1-3; Start 04/07/21 at 22:15 Acetaminophen (Tylenol) 650 mg Q8HRS PO Last administered on 04/08/21at 21:10; Start 04/08/21 at 06:00 Docusate Sodium (Colace) 100 mg BID PO Last administered on 04/09/21at 08:22; Start 04/08/21 at 09:00 Magnesium Hydroxide (Milk Of Magnesia) 2,400 mg PRN Q12HR PRN PO CONSTIPATION; Start 04/07/21 at 22:15 Cefazolin Sodium (Ancef) 1 gm Q8H IVP Last administered on 04/08/21at 21:10; Start 04/08/21 at 04:30; Stop 04/08/21 at 20:31; Status DC Metoprolol Tartrate (Lopressor Vial) 5 mg 1X ONCE IVP Last administered on 04/09/21at 08:48; Start 04/09/21 at 09:30; Stop 04/09/21 at 09:31; Status DC Digoxin (Lanoxin) 500 mcg 1X ONCE IV Last administered on 04/09/21at 10:30; Start 04/09/21 at 10:45; Stop 04/09/21 at 10:46; Status DC Vitals/I & O Vital Sign - Last 24 Hours 8/9/04/08/21 04/08/21 04/08/21 14:11 15:34 16:00 16:00 Pulse 70 70 80 Resp 16 18 20 B/P (MAP) 110/58 (75) 133/65 (87) 133/66 (88) Pulse Ox 96 96 96 O2 Delivery Room Air Room Air Room Air Room Air 04/08/21 04/08/21 04/08/21 04/08/21 17:01 17:10 18:11 19:00 Temp 98.4 98.4 Pulse 84 76 77 Resp 22 16 16 B/P (MAP) 123/66 (85) 109/58 (75) 115/60 (78) Pulse Ox 96 96 96 O2 Delivery Room Air Room Air Room Air Room Air 04/08/21 04/08/21 04/08/21 04/09/21 20:50 21:00 22:35 03:10 Temp 98.9 97.9 97.9 98.9 97.9 97.9 Pulse 76 77 68 Resp 18 18 20 B/P (MAP) 136/62 (86) 120/58 (78) 128/60 (82) Pulse Ox 96 99 97 O2 Delivery Room Air Room Air Room Air Room Air 04/09/21 04/09/21 04/09/21 04/09/21 07:00 08:25 08:48 10:30 Temp 97.5 97.5 Pulse 72 160 160 Resp 16 B/P (MAP) 138/65 (89) Pulse Ox 93 O2 Delivery Room Air Room Air 04/09/21 04/09/21 11:00 11:32 Temp 97.9 97.9 Pulse 139 69 Resp 18 B/P (MAP) 81/55 (64) 106/58 (74) Pulse Ox 94 O2 Delivery Room Air Intake and Output 04/08/21 04/08/21 04/09/21 15:00 23:00 07:00 Intake Total 240 ml 360 ml 0 ml Output Total 150 ml 170 ml 150 ml Balance 90 ml 190 ml -150 ml Justifications for Admission Other Justification ANDREW AGUILA MD Apr 09, 2021 12:58
--- NOTE | 2021-04-09 13:14 | RAD ---
EXAM: CHEST ONE VIEW. HISTORY: Congestive heart failure. COMPARISON: 04/07/2021. FINDINGS: A frontal view of the chest is obtained. There are mild interstitial infiltrates with a basilar predominance. There is no pneumothorax or pleu ral effusion. The heart is not enlarged. There are atherosclerotic calcifications of the aorta. Calci fied lymph nodes likely reflect old granulomatous disease. 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 IMPRESSION: 1. Bilateral basilar predominant interstitial infiltrates are mildly increased, suggesting mild pulmo nary edema superimposed on interstitial lung disease. Electronically signed by: Pushpa Briceno MD (04/09/2021 1:11 PM) [id number]
[2021-04-09] MEDS ORDERED: IV NORMAL SALINE 1000ML BAG 1,000 ML IV ONE (14:00)
--- NOTE | 2021-04-09 14:07 | PATHOLOGY ---
[facility] Accession Number: [id number] . 01 Material submitted: . brain - SUBDURAL MEMBRANE. Modifiers: left, SUBDURAL . 01 Clinical history: . LEFT CHRONIC SUBDURAL HEMATOMA CRANIOTMOY WITH EVACUATION SUBDURAL HEMATOMA . 02 Diagnosis: Subdural hematoma evacuation: - Segment of fibromembranous tissue showing chronic inflammation, few hemosiderin laden macrophages, and focal attached portion of hematoma (subdural membrane). (JPM:jamal; 04/09/2021) QMS 04/09/2021 1309 Local . 02 Electronically signed: . Riccardo Winters MD, Pathologist NPI- [id number] . 01 Gross description: . The specimen is received in formalin, labeled "Dario Clarke and #1 subdural membrane". It consists of a mckenzie-brown, irregular soft tissue fragment measuring 0.5 x 0.3 x 0.2 cm. The specimen is entirely submitted between sponges in A1. (MRF; 04/08/2021) MFE/MFE 04/09/2021 1005 Local . 02 Pathologist provided ICD-10: I62.00 . 02 CPT . 394595 Specimen Comment: A courtesy copy of this report has been sent to [phone] Specimen Comment: [id number], Specimen Comment: Report sent to ,DR EDMOND / DR MANCERA Performed at: 01 [facility] [address], [place] [id number] MD Salo King MD Phone: [phone] Performed at: 02 [facility] [id number] MD Riccardo Winters MD Phone: [phone]
--- NOTE | 2021-04-09 14:32 | NUR ---
SS following up with discharge planning. SS reviewed pt chart and discussed with pt RN. Pt is currently on room air. COVID19 negative. Pt had craniotomy on 04/07/2021. Cardiology and Dr. Joseph consulted. PT/OT ordered. SS will continue to follow for discharge planning.
[2021-04-09] MEDS ORDERED: POTASSIUM CHLORIDE 20 MEQ TABLET.ER. PO ONE (15:00)
--- NOTE | 2021-04-09 15:16 | CARD ---
MR#: [id number] Date of Study: 04/09/2021 Ordering Physician: JU VALDIVIA, Referring Physician: JU VALDIVIA Tech: Esequiel Guidry [facility] APPROVED REPORT EXAM: Two-dimensional and M-mode echocardiogram with Doppler and color Doppler. Other Information Quality : FairHR: 69bpm Rhythm : NSRTechnically limited study due to Dementia, uncooperative INDICATION Atrial Fibrillation RISK FACTORS Hypertension Hyperlipidemia Brain hematoma 2D DIMENSIONS Left Atrium(2D)4.0 (1.6-4.0cm)IVSd1.1 (0.7-1.1cm) Aortic Root(2D)3.9 (2.0-3.7cm)LVDd4.5 (3.9-5.9cm) LVOT Diameter1.9 (1.8-2.4cm)PWd1.1 (0.7-1.1cm) LVDs2.8 (2.5-4.0cm)FS (%) 37.3 % SV61.3 mlLVEF(%)67.4 (>50%) Aortic Valve AoV Peak Imer.143.9cm/sAoV VTI28.2cm AO Peak GR.8.3mmHgLVOT Peak Imer.88.0cm/s AO Mean GR.4mmHgAVA (VMAX)1.79cm2 Mitral Valve MV E Fpgtyzup74.8cm/sMV E Peak Gr.5mmHg MV DECEL [id number] A Hnpxtrea994.8cm/s MV E Mean Gr.2mmHgE/A Ratio0.4 Tricuspid Valve TR P. Itrvqfyj532fu/sTR Peak Gr.16mmHg LEFT VENTRICLE The left ventricle is normal size. There is normal left ventricular wall thickness. The left ventricu lar systolic function is normal. The ejection fraction is 60-65%. There is normal LV segmental wall m otion. Transmitral Doppler flow pattern is Grade I-abnormal relaxation pattern. No left ventricle thr ombus noted on this study. There is no ventricular septal defect visualized. There is no left ventric ular aneurysm. There is no mass noted in the left ventricle. RIGHT VENTRICLE The right ventricle is normal size. There is normal right ventricular wall thickness. The right ventr icular systolic function is normal. ATRIA The left atrium is borderline dilated. The right atrium size is normal. The interatrial septum is int act with no evidence for an atrial septal defect or patent foramen ovale as noted on 2-D or Doppler i maging. AORTIC VALVE Aortic valve not well visualized. Doppler and Color Flow revealed no significant aortic regurgitation . There is no significant aortic valvular stenosis. There is no aortic valvular vegetation. MITRAL VALVE Mitral annular calcification is mild. There is no evidence of mitral valve prolapse. There is no mitr al valve stenosis. Doppler and Color-flow revealed mild mitral regurgitation. TRICUSPID VALVE Doppler and Color Flow revealed trace tricuspid regurgitation. There is no tricuspid valve stenosis. GREAT VESSELS Aortic root mildly dilated at 4.0 cm. The ascending aorta is normal in size. Pulmonary artery not wel l visualized. The IVC is normal in size and collapses >50% with inspiration. PERICARDIAL EFFUSION There is no pleural effusion. There is no evidence of significant pericardial effusion. Critical Notification Critical Value: No <Conclusion> The left ventricular systolic function is normal. The ejection fraction is 60-65%. There is normal LV segmental wall motion. Transmitral Doppler flow pattern is Grade I-abnormal relaxation pattern. Mild mitral regurgitation. Trace tricuspid regurgitation. Aortic root mildly dilated at 4.0 cm. There is no evidence of significant pericardial effusion. Signed by : Ruben Rodriguez, Electronically Approved : 04/09/2021 15:15:50
[2021-04-09] MEDS: DIGOXIN 125 MCG TABLET. PO SCH (15:57)
[2021-04-09] MEDS ORDERED: NAPR220T70 PO (16:07)
[2021-04-09] MEDS ORDERED: ASPI-886 PO (16:07)
[2021-04-09] MEDS ORDERED: DONE10TA7 PO (16:07)
[2021-04-09] MEDS ORDERED: CYAN-25 PO (16:07)
[2021-04-09] MEDS: NAPROXEN 250 MG TABLET PO SCH (20:00)
[2021-04-09] MEDS: DONEPEZIL HCL 10 MG TABLET. PO SCH (21:25)
[2021-04-09] MEDS: hydrALAZINE 20 MG/ML VIAL. IVP PRN (23:25)
[2021-04-10 03:10] VITALS: BP 157/67
[2021-04-10] MEDS: ACETAMINOPHEN 325 MG TABLET. PO SCH ×3 (05:37→21:32)
[2021-04-10 07:00] VITALS: BP 148/68
[2021-04-10 08:00] LABS: GFR 71.2; POTASSIUM 3.7 mmol/L (3.5-5.1)
[2021-04-10] MEDS: DOCUSATE SODIUM 100 MG CAPSULE. PO SCH ×2 (09:00→21:32)
[2021-04-10] MEDS ORDERED: BISACODYL 5 MG TABLET.DR. PO PRN (09:15)
--- NOTE | 2021-04-10 09:16 | PDOC ---
[facility] [facility] PROGRESS NOTE Date of Service DOS: DATE: 04/10/21 TIME: 09:15 Chief Complaint Chief Complaint Subdural hematoma Weakness Ams History of Present Illness History of Present Illness 04/10/2021 Pt seen and examined at bedside Pt in NAD Wound is CDIT D/W RN Chart reviewed 04/09/21 Pt seen and examined at bedside Pt in NAD Pt cannot remember how he hurt his head D/W RN Chart reviewed Patient is a 85 year old male with history of dementia presenting to the ED today via EMS to be evaluated for altered mental status and generalized weakness. It is unknown when his symptoms began. Patient is answering simple questions with yes or no but seem not to follow much directions. Family came to the ED later, they state patient has had general weakness and altered mental status since this morning. They deny patient falling today but states a couple months ago he fell off his truck bed. Vitals/I&O Vitals/I&O: Vital Signs Date Time Temp Pulse Resp B/P (MAP) Pulse Ox O2 Delivery O2 Flow Rate FiO2 04/10/21 07:00 97.5 63 17 148/68 (94) 98 Room Air 97.5 I & O 04/09/21 04/09/21 04/10/21 15:00 23:00 07:00 Intake Total 220 ml 250 ml Output Total 300 ml 250 ml Balance -80 ml 250 ml -250 ml Physical Exam General: Alert, Cooperative, No acute distress Heart: Regular rate, Normal S1, Other (AFIB RVR) Lungs: Clear Abdomen: Soft, No tenderness Extremities: No cyanosis, No edema Skin: No breakdown, No significant lesion, Other (left parietal surgical incision) Labs Labs: Laboratory Tests Test 04/09/21 10:33 04/10/21 07:25 Sodium Level 140 mmol/L (136-145) 144 mmol/L (136-145) Potassium Level 3.2 mmol/L (3.5-5.1) 3.7 mmol/L (3.5-5.1) Chloride Level 103 mmol/L (98-107) 108 mmol/L (98-107) Carbon Dioxide Level 33 mmol/L (21-32) 32 mmol/L (21-32) Anion Gap 4 (6-14) 4 (6-14) Blood Urea Nitrogen 31 mg/dL (8-26) 27 mg/dL (8-26) Creatinine 1.5 mg/dL (0.7-1.3) 1.0 mg/dL (0.7-1.3) Estimated GFR (Cockcroft-Gault) 44.6 71.2 Glucose Level 124 mg/dL (70-99) 91 mg/dL (70-99) Calcium Level 8.5 mg/dL (8.5-10.1) 8.0 mg/dL (8.5-10.1) Magnesium Level 2.0 mg/dL (1.8-2.4) Review of Systems Review of Systems: Pt denies chest pain and SOB Pt denies N/V Assessment and Plan Assessmemt and Plan 04/10/2021 Assessment: Subdural hematoma Weakness Ams Plan: Wound care ST Continue home Rx DVT Prophylaxis Full code PTOT Trend labs Appreciate subspeciality input D/C disposition pending Problems Medical Problems: (1) Midline shift of brain due to hematoma Status: Acute Comment Review of Relevant I have reviewed the following items emperatriz (where applicable) has been applied. Medications: Current Medications Medications (Trade) Dose Ordered Sig/Jennifer Route PRN Reason Start Time Stop Time Status Last Admin Dose Admin Metoprolol Tartrate (Lopressor Vial) 5 mg 1X ONCE IVP 04/09/21 09:30 04/09/21 09:31 DC 04/09/21 08:48 Digoxin (Lanoxin) 500 mcg 1X ONCE IV 04/09/21 10:45 04/09/21 10:46 DC 04/09/21 10:30 Potassium Chloride (Klor-Con) 40 meq 1X ONCE PO 04/09/21 15:00 04/09/21 15:01 DC 04/09/21 14:30 Sodium Chloride 1,000 ml @ 60 mls/hr 1X ONCE IV 04/09/21 14:00 04/10/21 06:39 DC 04/09/21 14:31 Digoxin (Lanoxin) 125 mcg DAILY PO 04/09/21 16:00 04/09/21 15:57 Donepezil HCl (Aricept) 10 mg HS PO 04/09/21 21:00 04/09/21 21:25 Justifications for Admission Other Justification MARKIE ALMODOVAR III DO Apr 10, 2021 09:16
[2021-04-10] MEDS: CYANOCOBALAMIN (VITAMIN B-12) 1,000 MCG TABLET. PO SCH (09:18)
[2021-04-10] MEDS: ASPIRIN ENTERIC COATED 81 MG TABLET.DR. PO SCH (09:19)
[2021-04-10] MEDS: NAPROXEN 250 MG TABLET PO SCH ×2 (09:19→17:44)
[2021-04-10] MEDS: DIGOXIN 125 MCG TABLET. PO SCH (09:19)
[2021-04-10] MEDS: hydrALAZINE 20 MG/ML VIAL. IVP PRN ×2 (09:20→22:58)
[2021-04-10 11:00] VITALS: BP 131/66
--- NOTE | 2021-04-10 13:46 | CONS ---
DATE OF CONSULTATION: 04/10/2021 ATTENDING PHYSICIAN: Manuel Dos Santos MD REASON FOR CONSULTATION: The patient was seen at the request of Dr. Guardado for rehab evaluation. HISTORY OF PRESENT ILLNESS: This is an 85-year-old male, retired. The patient lives with his , had few stairs to manage to enter the house. The patient was admitted through the Emergency Room on 04/07/2021 with altered mental status and generalized weakness of unknown duration. The patient had radiological studies done, which revealed large hypodense chronic subdural collection in the left with significant mass effect; subfalcine herniation and 1.4 cm midline shift to the right; small hyperdensity along the anterior aspect of the subdural, likely represents chronic calcification; acute blood would be considered less likely as hyperdensity is not layering dependently; volume loss and microvascular disease. The patient underwent emergency craniotomy and evacuation. The patient had chest x-ray, which revealed bilateral basilar predominant interstitial infiltrates are mildly increased, suggesting mild pulmonary edema superimposed on interstitial lung disease. The patient denies any headache or pain. He wants to eat. PAST MEDICAL HISTORY: Includes trigger fingers, left middle and ring fingers, for which he had injections done, which did not help much. PHYSICAL EXAMINATION: NEUROLOGIC: Today revealed an elderly male. He is alert, oriented to place and person. Decreased acuity of hearing. He moves all 4 extremities voluntarily, where he had 4+/5 grade muscle strength. Deep tendon reflexes are decreased overall. He had equal perception of touch and pinprick sensation bilaterally. He had tenderness to palpation over the palmar aspect of left middle and ring fingers at metacarpophalangeal joints with triggering. He had difficulty to extend those 2 fingers. The patient had dressing to his craniotomy site over left side of his head. The patient is receiving IV fluids. Blood pressure while supine, sitting and standing remained around 172/82-85. He denies any dizziness while up. He is independent with bed mobility and transfers and he walked at bedside using a roller walker without any loss of balance. No obvious visual field cut or facial asymmetry noted. He had crepitus on range of motion of his knee joints without any pain, mild knee joint effusion was noted. ASSESSMENT: 1. 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 2. Degenerative joint disease of both knees without any pain. 3. 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 4. Hypertension. 5. Decreased acuity of hearing. RECOMMENDATIONS: Agree with the plan for physical therapy and occupational therapy, home with home health followup when medically stable. Dr. Guardado, I appreciate asking me to participate in the care of this interesting patient. I will be glad to see him for followup with you on as needed basis. YOLIE DR: Pato TID: [id number]
--- NOTE | 2021-04-10 13:58 | NUR ---
SS following up with discharge planning. SS reviewed pt chart and discussed with pt RN. Pt is currently on room air. COVID19 negative. PT/OT recommending [facility] unit. Dr. Joseph recommended home with home healthcare. SS contacted pt's spouse and daughter and discussed discharge planning and [facility] unit vs. home healthcare. Pt's spouse and daughter coming to speak with pt this afternoon and will notify SS of discharge decision. SS will continue to follow for discharge planning.
[2021-04-10 15:00] VITALS: BP 127/60
--- NOTE | 2021-04-10 15:12 | PDOC ---
JU VALDIVIA SITE MONITOR 04/10/21 1512: CARDIO Progress Notes Date and Time Date of Service 04/10/2021 Time of Evaluation 1500 Subjective Subjective: No Chest Pain, No shortness of breath, No Palpitations Vitals Vitals Vital Signs Date Time Temp Pulse Resp B/P (MAP) Pulse Ox O2 Delivery O2 Flow Rate FiO2 04/10/21 11:00 97.7 66 17 131/66 (87) 99 Room Air 97.7 Weight Weight [ ] Input and Output Intake and Output Intake and Output 04/10/21 07:00 Intake Total 470 ml Output Total 550 ml Balance -80 ml Intake Oral 470 ml Output Urine Total 550 ml # Voids 1 Laboratory Labs Laboratory Tests Test 04/10/21 07:25 Sodium Level 144 mmol/L (136-145) Potassium Level 3.7 mmol/L (3.5-5.1) Chloride Level 108 mmol/L (98-107) Carbon Dioxide Level 32 mmol/L (21-32) Anion Gap 4 (6-14) Blood Urea Nitrogen 27 mg/dL (8-26) Creatinine 1.0 mg/dL (0.7-1.3) Estimated GFR (Cockcroft-Gault) 71.2 Glucose Level 91 mg/dL (70-99) Calcium Level 8.0 mg/dL (8.5-10.1) Microbiology Micro Microbiology 04/07/21 Blood Culture - Preliminary, Resulted NO GROWTH AFTER 2 DAYS Physical Exam HEENT: Neck Supple W Full Motion Chest: Symmetric LUNGS: Other (diminished) Heart: RRR (SR) Abdomen: Soft N/T Extremities: No Edema, No Calf Tenderness Neurology: alert, follow commands, confused Assessment Assessment 1. 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 AFIB RVR: new finding. Asymptomatic. Maintaining SR after dig IV. EF and WM nml 3. Thrombocytopenia: PLT at 66 4. Hx of falls 5. Dementia 6. Mild acute diastolic CHF: Due to RVR. clinically compensated 7. MARLIN: prerenal improved Recommendations 1. Continue toprol and low dose digoxin 2. 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 MCOT, follow up in office Justicifation of Admission Dx: Justifications for Admission: Justification of Admission Dx: Yes RAS MOHR MD 04/10/21 2358: CARDIO Progress Notes Assessment Assessment Patient seen and examined. Agree with EDITORIAL CLERK's assessment and plan. Atrial fibrillation with RVR, newly diagnosed, presently SR. Continue beta- blockers and plan outpatient event monitor. 2D echo showed normal LV systolic function. Patient is a poor candidate for long-term anticoagulation due to thrombocytopenia and subdural hematoma. Mild acute diastolic heart failure better compensated. JU VALDIVIA APRN Apr 10, 2021 15:12 RAS MOHR MD Apr 10, 2021 23:58
[2021-04-10] MEDS: METOPROLOL SUCC 24HR ER 25 MG TAB.ER.24H. PO SCH (15:42)
--- NOTE | 2021-04-10 17:47 | PDOC ---
PROGRESS NOTES Date of Service DATE: 04/10/21 TIME: 17:45 Subjective Subjective POD #3 S/P emergency left central craniotomy with evacuation of chronic subdural hematoma, placement of drain awake, alert no complaints up in chair Objective Objective Vital Signs Date Time Temp Pulse Resp B/P (MAP) Pulse Ox O2 Delivery O2 Flow Rate FiO2 04/10/21 15:42 78 127/60 04/10/21 15:00 97.6 18 97 Room Air 97.6 04/08/21 11:00 2.0 Intake and Output 04/10/21 07:00 Intake Total 470 ml Output Total 550 ml Balance -80 ml Intake Oral 470 ml Output Urine Total 550 ml # Voids 1 Physical Exam General: Alert, Cooperative, No acute distress MUSCULOSKELETAL: Other (GUEVARA) Skin: Other (dressing C,D,I) Assessment Assessment Problems Medical Problems: (1) Midline shift of brain due to hematoma Status: Acute Plan Plan of Care continue rehab home tomorrow with Home health will arrange for follow up CT in 7 to 10 days Comment Review of Relevant I have reviewed the following items emperatriz (where applicable) has been applied. Labs Laboratory Tests Test 04/09/21 10:33 04/10/21 07:25 Sodium Level 140 mmol/L (136-145) 144 mmol/L (136-145) Potassium Level 3.2 mmol/L (3.5-5.1) 3.7 mmol/L (3.5-5.1) Chloride Level 103 mmol/L (98-107) 108 mmol/L (98-107) Carbon Dioxide Level 33 mmol/L (21-32) 32 mmol/L (21-32) Anion Gap 4 (6-14) 4 (6-14) Blood Urea Nitrogen 31 mg/dL (8-26) 27 mg/dL (8-26) Creatinine 1.5 mg/dL (0.7-1.3) 1.0 mg/dL (0.7-1.3) Estimated GFR (Cockcroft-Gault) 44.6 71.2 Glucose Level 124 mg/dL (70-99) 91 mg/dL (70-99) Calcium Level 8.5 mg/dL (8.5-10.1) 8.0 mg/dL (8.5-10.1) Magnesium Level 2.0 mg/dL (1.8-2.4) Laboratory Tests Test 04/10/21 07:25 Sodium Level 144 mmol/L (136-145) Potassium Level 3.7 mmol/L (3.5-5.1) Chloride Level 108 mmol/L (98-107) Carbon Dioxide Level 32 mmol/L (21-32) Anion Gap 4 (6-14) Blood Urea Nitrogen 27 mg/dL (8-26) Creatinine 1.0 mg/dL (0.7-1.3) Estimated GFR (Cockcroft-Gault) 71.2 Glucose Level 91 mg/dL (70-99) Calcium Level 8.0 mg/dL (8.5-10.1) Microbiology 04/07/21 Blood Culture - Preliminary, Resulted NO GROWTH AFTER 2 DAYS Medications Current Medications Cefazolin Sodium (Ancef) 1 gm 1X ONCE IVP ; Start 04/07/21 at 20:00; Stop 04/07/21 at 20:01; Status Cancel Sodium Chloride 1,000 ml @ 1,000 mls/hr 1X ONCE IV ; Start 04/07/21 at 19:45; Stop 04/07/21 at 20:44; Status Cancel Gelatin (Gelfoam Size 100) 1 each STK-MED ONCE .ROUTE Last administered on 04/07/21at 21:19; Start 04/07/21 at 19:38; Stop 04/07/21 at 19:39; Status DC Bupivacaine HCl/ Epinephrine Bitart (Sensorcain-Epi 0.5% Kit) 30 ml STK-MED ONCE .ROUTE ; Start 04/07/21 at 19:38; Stop 04/07/21 at 19:39; Status DC Cellulose (Surgicel Hemostat 4x8) 1 each STK-MED ONCE .ROUTE ; Start 04/07/21 at 19:38; Stop 04/07/21 at 19:39; Status DC Thrombin 20,000 unit STK-MED ONCE TP Last administered on 04/07/21at 21:19; Start 04/07/21 at 19:38; Stop 04/07/21 at 19:39; Status DC Bupivacaine HCl/ Epinephrine Bitart (Sensorcain-Epi 0.5%-1:870300 Mpf) 30 ml STK-MED ONCE .ROUTE Last administered on 04/07/21at 21:19; Start 04/07/21 at 19:39; Stop 04/07/21 at 19:39; Status DC Rocuronium Bumpass (Zemuron) 50 mg STK-MED ONCE .ROUTE ; Start 04/07/21 at 19:46; Stop 04/07/21 at 19:46; Status DC Dexamethasone Sodium Phosphate (Decadron) 20 mg STK-MED ONCE .ROUTE ; Start 04/07/21 at 19:51; Stop 04/07/21 at 19:51; Status DC Lidocaine HCl (Lidocaine Pf 2% Vial) 5 ml STK-MED ONCE .ROUTE ; Start 04/07/21 at 19:51; Stop 04/07/21 at 19:51; Status DC Ondansetron HCl (Zofran) 4 mg STK-MED ONCE .ROUTE ; Start 04/07/21 at 19:51; Stop 04/07/21 at 19:51; Status DC Propofol (Diprivan) 200 mg STK-MED ONCE IV ; Start 04/07/21 at 19:51; Stop 04/07/21 at 19:51; Status DC Cefazolin Sodium 1 gm/Sodium Chloride 1,000 ml @ 1,000 mls/hr 1X ONCE IRR ; Start 04/07/21 at 20:00; Stop 04/07/21 at 20:59; Status DC Cefazolin Sodium/ Dextrose 50 ml @ As Directed STK-MED ONCE IV ; Start 04/07/21 at 20:29; Stop 04/07/21 at 20:29; Status DC Fentanyl Citrate (Fentanyl 2ml Vial) 25 mcg PRN Q5MIN PRN IVP MILD PAIN 1-3; Start 04/07/21 at 21:30; Stop 04/08/21 at 21:29; Status DC Fentanyl Citrate (Fentanyl 2ml Vial) 50 mcg PRN Q5MIN PRN IVP MODERATE PAIN 4- 6; Start 04/07/21 at 21:30; Stop 04/08/21 at 21:29; Status DC Morphine Sulfate (Morphine Sulfate) 1 mg PRN Q10MIN PRN IVP SEVERE PAIN 7-10; Start 04/07/21 at 21:30; Stop 04/08/21 at 21:29; Status DC Ringer's Solution 1,000 ml @ 30 mls/hr Q24H IV ; Start 04/07/21 at 21:30; Stop 04/08/21 at 09:29; Status DC Hydromorphone HCl (Dilaudid) 0.5 mg PRN Q10MIN PRN IVP SEVERE PAIN 7-10, 2nd CHOICE; Start 04/07/21 at 21:30; Stop 04/08/21 at 21:29; Status DC Prochlorperazine Edisylate (Compazine) 5 mg PACU PRN PRN IVP NAUSEA, MRX1; Start 04/07/21 at 21:30; Stop 04/08/21 at 21:29; Status DC Ondansetron HCl (Zofran) 4 mg PRN Q8HRS PRN IVP NAUSEA/VOMITING; Start 04/07/21 at 21:45; Stop 04/08/21 at 21:44; Status DC Nicardipine HCl (Cardene) 25 mg STK-MED ONCE IV ; Start 04/07/21 at 22:07; Stop 04/07/21 at 22:07; Status DC Sevoflurane (Ultane) 60 ml STK-MED ONCE IH ; Start 04/07/21 at 22:07; Stop 04/07/21 at 22:08; Status DC Nicardipine HCl 50 mg/Sodium Chloride 250 ml @ 25 mls/hr TITRATE PRN IV PER PROTOCOL Last administered on 04/07/21at 22:47; Start 04/07/21 at 22:15 Hydralazine HCl (Apresoline Inj) 5 mg PRN Q6HRS PRN IVP TO KEEP SBP<140mmHg Last administered on 04/10/21at 09:20; Start 04/07/21 at 22:15 Al Hydroxide/Mg Hydroxide (Mylanta Plus Xs) 30 ml PRN Q3HRS PRN PO HEARTBURN / GAS; Start 04/07/21 at 22:15 Calcium Carbonate/ Glycine (Tums) 500 mg PRN Q3HRS PRN PO INDIGESTION; Start 04/07/21 at 22:15 Diphenhydramine HCl (Benadryl) 25 mg PRN Q6HRS PRN PO ITCHING; Start 04/07/21 at 22:15 Sodium Chloride (Normal Saline Flush) 3 ml QSHIFT PRN IV AFTER MEDS AND BLOOD DRAWS; Start 04/07/21 at 22:15 Potassium Chloride/Dextrose/ Sod Cl 1,000 ml @ 75 mls/hr [id number] IV Last administered on 04/07/21at 23:14; Start 04/07/21 at 22:30; Stop 04/08/21 at 11:34; Status DC Dextrose (Dextrose 50%-Water Syringe) 12.5 gm PRN Q15MIN PRN IV SEE COMMENTS; Start 04/07/21 at 22:15 Acetaminophen/ Hydrocodone Bitart (Lortab 5/325) 1 tab PRN Q4HRS PRN PO MILD PAIN 1-3; Start 04/07/21 at 22:15 Acetaminophen (Tylenol) 650 mg Q8HRS PO Last administered on 04/10/21at 15:41; Start 04/08/21 at 06:00 Docusate Sodium (Colace) 100 mg BID PO Last administered on 04/09/21at 21:25; Start 04/08/21 at 09:00 Magnesium Hydroxide (Milk Of Magnesia) 2,400 mg PRN Q12HR PRN PO CONSTIPATION; Start 04/07/21 at 22:15 Cefazolin Sodium (Ancef) 1 gm Q8H IVP Last administered on 04/08/21at 21:10; Start 04/08/21 at 04:30; Stop 04/08/21 at 20:31; Status DC Metoprolol Tartrate (Lopressor Vial) 5 mg 1X ONCE IVP Last administered on 04/09/21at 08:48; Start 04/09/21 at 09:30; Stop 04/09/21 at 09:31; Status DC Digoxin (Lanoxin) 500 mcg 1X ONCE IV Last administered on 04/09/21at 10:30; Start 04/09/21 at 10:45; Stop 04/09/21 at 10:46; Status DC Potassium Chloride (Klor-Con) 40 meq 1X ONCE PO Last administered on 04/09/21at 14:30; Start 04/09/21 at 15:00; Stop 04/09/21 at 15:01; Status DC Sodium Chloride 1,000 ml @ 60 mls/hr 1X ONCE IV Last administered on 04/09/21at 14:31; Start 04/09/21 at 14:00; Stop 04/10/21 at 06:39; Status DC Digoxin (Lanoxin) 125 mcg DAILY PO Last administered on 04/10/21at 09:19; Start 04/09/21 at 16:00 Aspirin (Ecotrin) 81 mg DAILY PO Last administered on 04/10/21at 09:19; Start 04/10/21 at 09:00 Cyanocobalamin (Vitamin B-12) 1,000 mcg DAILY PO Last administered on 04/10/21at 09:18; Start 04/10/21 at 09:00 Donepezil HCl (Aricept) 10 mg HS PO Last administered on 04/09/21at 21:25; Start 04/09/21 at 21:00 Naproxen (Naprosyn) 250 mg BIDWMEALS PO Last administered on 04/10/21at 17:44; Start 04/09/21 at 20:00 Bisacodyl (Dulcolax Tab) 10 mg PRN DAILY PRN PO CONSTIPATION - 2ND CHOICE; Start 04/10/21 at 09:15 Metoprolol Succinate (Toprol Xl) 25 mg DAILY PO Last administered on 04/10/21at 15:42; Start 04/10/21 at 15:30 Active Scripts Active Reported Vitamin B-12 (Cyanocobalamin (Vitamin B-12)) 1,000 Mcg Tablet 1,000 Mcg PO DAILY Aleve (Naproxen Sodium) 220 Mg Tablet 220 Mg PO BID Aspirin Ec (Aspirin) 81 Mg Tablet.dr 81 Mg PO DAILY Donepezil Hcl 10 Mg Tablet 10 Mg PO HS Vitals/I & O Vital Sign - Last 24 Hours 04/09/21 04/09/21 04/09/21 04/09/21 19:00 19:42 22:45 23:25 Temp 98.5 97.7 98.5 97.7 Pulse 71 64 Resp 20 18 B/P (MAP) 142/66 (91) 171/84 (113) 152/69 Pulse Ox 99 99 O2 Delivery Room Air Room Air Room Air 04/10/21 04/10/21 04/10/21 04/10/21 03:10 07:00 08:00 09:19 Temp 97.8 97.5 97.8 97.5 Pulse 58 63 63 Resp 18 17 B/P (MAP) 157/67 (97) 148/68 (94) 148/68 Pulse Ox 99 98 O2 Delivery Room Air Room Air Room Air 04/10/21 04/10/21 04/10/21 04/10/21 09:20 11:00 15:00 15:42 Temp 97.7 97.6 97.7 97.6 Pulse 63 66 70 78 Resp 17 18 B/P (MAP) 148/68 131/66 (87) 127/60 (82) 127/60 Pulse Ox 99 97 O2 Delivery Room Air Room Air Intake and Output 04/09/21 04/09/21 04/10/21 15:00 23:00 07:00 Intake Total 220 ml 250 ml Output Total 300 ml 250 ml Balance -80 ml 250 ml -250 ml Justifications for Admission Other Justification ANDREW AGUILA MD Apr 10, 2021 17:47
[2021-04-10 19:45] VITALS: BP 195/75
[2021-04-10] MEDS: DONEPEZIL HCL 10 MG TABLET. PO SCH (21:32)
[2021-04-10 22:45] VITALS: BP 200/88
[2021-04-11] VITALS (8 sets, daily range): BP systolic 140–187; BP diastolic 66–87
[2021-04-11] MEDS: ACETAMINOPHEN 325 MG TABLET. PO SCH ×3 (05:53→22:14)
[2021-04-11] MEDS: NAPROXEN 250 MG TABLET PO SCH (08:00)
[2021-04-11 08:16] LABS: ALBUMIN 2.4 g/dL (3.4-5.0); ALBUMIN/GLOBULIN RATIO 0.7 (1.0-1.7); GFR 71.2; POTASSIUM 3.6 mmol/L (3.5-5.1); TOTAL BILIRUBIN 0.5 mg/dL (0.2-1.0); TOTAL PROTEIN 5.9 g/dL (6.4-8.2)
--- NOTE | 2021-04-11 08:54 | PDOC ---
PROGRESS NOTES Date of Service DATE: 04/11/21 TIME: 08:51 Subjective Subjective No new complaints. Objective Objective Vital Signs Date Time Temp Pulse Resp B/P (MAP) Pulse Ox O2 Delivery O2 Flow Rate FiO2 04/11/21 03:00 97.7 68 18 162/69 (100) 99 Room Air 97.7 04/08/21 11:00 2.0 Intake and Output 04/11/21 07:00 Intake Total 100 ml Output Total 300 ml Balance -200 ml Intake Oral 100 ml Output Urine Total 300 ml # Voids 2 # Bowel Movements 1 Physical Exam Physical Exam He is alert,sitting on commode chair and he is eating good and walking with roller walker for 50'. Physical therapy recommends SNF. To let his family decide on home with home health follow up or SNF. Assessment Assessment Problems Medical Problems: (1) Midline shift of brain due to hematoma Status: Acute Plan Plan of Care Hopefully home or SNF when medically stable tomorrow. Comment Review of Relevant I have reviewed the following items emperatriz (where applicable) has been applied. Labs Laboratory Tests Test 04/09/21 10:33 04/10/21 07:25 04/11/21 07:40 Sodium Level 140 mmol/L (136-145) 144 mmol/L (136-145) 140 mmol/L (136-145) Potassium Level 3.2 mmol/L (3.5-5.1) 3.7 mmol/L (3.5-5.1) 3.6 mmol/L (3.5-5.1) Chloride Level 103 mmol/L (98-107) 108 mmol/L (98-107) 106 mmol/L (98-107) Carbon Dioxide Level 33 mmol/L (21-32) 32 mmol/L (21-32) 31 mmol/L (21-32) Anion Gap 4 (6-14) 4 (6-14) 3 (6-14) Blood Urea Nitrogen 31 mg/dL (8-26) 27 mg/dL (8-26) 24 mg/dL (8-26) Creatinine 1.5 mg/dL (0.7-1.3) 1.0 mg/dL (0.7-1.3) 1.0 mg/dL (0.7-1.3) Estimated GFR (Cockcroft-Gault) 44.6 71.2 71.2 Glucose Level 124 mg/dL (70-99) 91 mg/dL (70-99) 91 mg/dL (70-99) Calcium Level 8.5 mg/dL (8.5-10.1) 8.0 mg/dL (8.5-10.1) 8.0 mg/dL (8.5-10.1) Magnesium Level 2.0 mg/dL (1.8-2.4) BUN/Creatinine Ratio 24 (6-20) Total Bilirubin 0.5 mg/dL (0.2-1.0) Aspartate Amino Transf (AST/SGOT) 23 U/L (15-37) Alanine Aminotransferase (ALT/SGPT) 10 U/L (16-63) Alkaline Phosphatase 62 U/L (46-116) Total Protein 5.9 g/dL (6.4-8.2) Albumin 2.4 g/dL (3.4-5.0) Albumin/Globulin Ratio 0.7 (1.0-1.7) Laboratory Tests Test 04/11/21 07:40 Sodium Level 140 mmol/L (136-145) Potassium Level 3.6 mmol/L (3.5-5.1) Chloride Level 106 mmol/L (98-107) Carbon Dioxide Level 31 mmol/L (21-32) Anion Gap 3 (6-14) Blood Urea Nitrogen 24 mg/dL (8-26) Creatinine 1.0 mg/dL (0.7-1.3) Estimated GFR (Cockcroft-Gault) 71.2 BUN/Creatinine Ratio 24 (6-20) Glucose Level 91 mg/dL (70-99) Calcium Level 8.0 mg/dL (8.5-10.1) Total Bilirubin 0.5 mg/dL (0.2-1.0) Aspartate Amino Transf (AST/SGOT) 23 U/L (15-37) Alanine Aminotransferase (ALT/SGPT) 10 U/L (16-63) Alkaline Phosphatase 62 U/L (46-116) Total Protein 5.9 g/dL (6.4-8.2) Albumin 2.4 g/dL (3.4-5.0) Albumin/Globulin Ratio 0.7 (1.0-1.7) Microbiology 04/07/21 Blood Culture - Preliminary, Resulted NO GROWTH AFTER 3 DAYS Medications Current Medications Cefazolin Sodium (Ancef) 1 gm 1X ONCE IVP ; Start 04/07/21 at 20:00; Stop 04/07/21 at 20:01; Status Cancel Sodium Chloride 1,000 ml @ 1,000 mls/hr 1X ONCE IV ; Start 04/07/21 at 19:45; Stop 04/07/21 at 20:44; Status Cancel Gelatin (Gelfoam Size 100) 1 each STK-MED ONCE .ROUTE Last administered on 04/07/21at 21:19; Start 04/07/21 at 19:38; Stop 04/07/21 at 19:39; Status DC Bupivacaine HCl/ Epinephrine Bitart (Sensorcain-Epi 0.5% Kit) 30 ml STK-MED ONCE .ROUTE ; Start 04/07/21 at 19:38; Stop 04/07/21 at 19:39; Status DC Cellulose (Surgicel Hemostat 4x8) 1 each STK-MED ONCE .ROUTE ; Start 04/07/21 at 19:38; Stop 04/07/21 at 19:39; Status DC Thrombin 20,000 unit STK-MED ONCE TP Last administered on 04/07/21at 21:19; Start 04/07/21 at 19:38; Stop 04/07/21 at 19:39; Status DC Bupivacaine HCl/ Epinephrine Bitart (Sensorcain-Epi 0.5%-1:[id number] Mpf) 30 ml STK-MED ONCE .ROUTE Last administered on 04/07/21at 21:19; Start 04/07/21 at 19:39; Stop 04/07/21 at 19:39; Status DC Rocuronium [place] (Zemuron) 50 mg STK-MED ONCE .ROUTE ; Start 04/07/21 at 19:46; Stop 04/07/21 at 19:46; Status DC Dexamethasone Sodium Phosphate (Decadron) 20 mg STK-MED ONCE .ROUTE ; Start 04/07/21 at 19:51; Stop 04/07/21 at 19:51; Status DC Lidocaine HCl (Lidocaine Pf 2% Vial) 5 ml STK-MED ONCE .ROUTE ; Start 04/07/21 at 19:51; Stop 04/07/21 at 19:51; Status DC Ondansetron HCl (Zofran) 4 mg STK-MED ONCE .ROUTE ; Start 04/07/21 at 19:51; Stop 04/07/21 at 19:51; Status DC Propofol (Diprivan) 200 mg STK-MED ONCE IV ; Start 04/07/21 at 19:51; Stop 04/07/21 at 19:51; Status DC Cefazolin Sodium 1 gm/Sodium Chloride 1,000 ml @ 1,000 mls/hr 1X ONCE IRR ; Start 04/07/21 at 20:00; Stop 04/07/21 at 20:59; Status DC Cefazolin Sodium/ Dextrose 50 ml @ As Directed STK-MED ONCE IV ; Start 04/07/21 at 20:29; Stop 04/07/21 at 20:29; Status DC Fentanyl Citrate (Fentanyl 2ml Vial) 25 mcg PRN Q5MIN PRN IVP MILD PAIN 1-3; Start 04/07/21 at 21:30; Stop 04/08/21 at 21:29; Status DC Fentanyl Citrate (Fentanyl 2ml Vial) 50 mcg PRN Q5MIN PRN IVP MODERATE PAIN 4- 6; Start 04/07/21 at 21:30; Stop 04/08/21 at 21:29; Status DC Morphine Sulfate (Morphine Sulfate) 1 mg PRN Q10MIN PRN IVP SEVERE PAIN 7-10; Start 04/07/21 at 21:30; Stop 04/08/21 at 21:29; Status DC Ringer's Solution 1,000 ml @ 30 mls/hr Q24H IV ; Start 04/07/21 at 21:30; Stop 04/08/21 at 09:29; Status DC Hydromorphone HCl (Dilaudid) 0.5 mg PRN Q10MIN PRN IVP SEVERE PAIN 7-10, 2nd CHOICE; Start 04/07/21 at 21:30; Stop 04/08/21 at 21:29; Status DC Prochlorperazine Edisylate (Compazine) 5 mg PACU PRN PRN IVP NAUSEA, MRX1; Start 04/07/21 at 21:30; Stop 04/08/21 at 21:29; Status DC Ondansetron HCl (Zofran) 4 mg PRN Q8HRS PRN IVP NAUSEA/VOMITING; Start 04/07/21 at 21:45; Stop 04/08/21 at 21:44; Status DC Nicardipine HCl (Cardene) 25 mg STK-MED ONCE IV ; Start 04/07/21 at 22:07; Stop 04/07/21 at 22:07; Status DC Sevoflurane (Ultane) 60 ml STK-MED ONCE IH ; Start 04/07/21 at 22:07; Stop 04/07/21 at 22:08; Status DC Nicardipine HCl 50 mg/Sodium Chloride 250 ml @ 25 mls/hr TITRATE PRN IV PER PROTOCOL Last administered on 04/07/21at 22:47; Start 04/07/21 at 22:15 Hydralazine HCl (Apresoline Inj) 5 mg PRN Q6HRS PRN IVP TO KEEP SBP<140mmHg Last administered on 04/10/21at 22:58; Start 04/07/21 at 22:15 Al Hydroxide/Mg Hydroxide (Mylanta Plus Xs) 30 ml PRN Q3HRS PRN PO HEARTBURN / GAS; Start 04/07/21 at 22:15 Calcium Carbonate/ Glycine (Tums) 500 mg PRN Q3HRS PRN PO INDIGESTION; Start 04/07/21 at 22:15 Diphenhydramine HCl (Benadryl) 25 mg PRN Q6HRS PRN PO ITCHING; Start 04/07/21 at 22:15 Sodium Chloride (Normal Saline Flush) 3 ml QSHIFT PRN IV AFTER MEDS AND BLOOD DRAWS; Start 04/07/21 at 22:15 Potassium Chloride/Dextrose/ Sod Cl 1,000 ml @ 75 mls/hr [id number] IV Last administered on 04/07/21at 23:14; Start 04/07/21 at 22:30; Stop 04/08/21 at 11:34; Status DC Dextrose (Dextrose 50%-Water Syringe) 12.5 gm PRN Q15MIN PRN IV SEE COMMENTS; Start 04/07/21 at 22:15 Acetaminophen/ Hydrocodone Bitart (Lortab 5/325) 1 tab PRN Q4HRS PRN PO MILD PAIN 1-3; Start 04/07/21 at 22:15 Acetaminophen (Tylenol) 650 mg Q8HRS PO Last administered on 04/11/21at 05:53; Start 04/08/21 at 06:00 Docusate Sodium (Colace) 100 mg BID PO Last administered on 04/10/21at 21:32; Start 04/08/21 at 09:00 Magnesium Hydroxide (Milk Of Magnesia) 2,400 mg PRN Q12HR PRN PO CONSTIPATION; Start 04/07/21 at 22:15 Cefazolin Sodium (Ancef) 1 gm Q8H IVP Last administered on 04/08/21at 21:10; Start 04/08/21 at 04:30; Stop 04/08/21 at 20:31; Status DC Metoprolol Tartrate (Lopressor Vial) 5 mg 1X ONCE IVP Last administered on 04/09/21at 08:48; Start 04/09/21 at 09:30; Stop 04/09/21 at 09:31; Status DC Digoxin (Lanoxin) 500 mcg 1X ONCE IV Last administered on 04/09/21at 10:30; Start 04/09/21 at 10:45; Stop 04/09/21 at 10:46; Status DC Potassium Chloride (Klor-Con) 40 meq 1X ONCE PO Last administered on 04/09/21at 14:30; Start 04/09/21 at 15:00; Stop 04/09/21 at 15:01; Status DC Sodium Chloride 1,000 ml @ 60 mls/hr 1X ONCE IV Last administered on 04/09/21 14:31; Start 04/09/21 at 14:00; Stop 04/10/21 at 06:39; Status DC Digoxin (Lanoxin) 125 mcg DAILY PO Last administered on 04/10/21at 09:19; Start 04/09/21 at 16:00 Aspirin (Ecotrin) 81 mg DAILY PO Last administered on 04/10/21at 09:19; Start 04/10/21 at 09:00 Cyanocobalamin (Vitamin B-12) 1,000 mcg DAILY PO Last administered on 04/10/21 09:18; Start 04/10/21 at 09:00 Donepezil HCl (Aricept) 10 mg HS PO Last administered on 04/10/21at 21:32; Start 04/09/21 at 21:00 Naproxen (Naprosyn) 250 mg BIDWMEALS PO Last administered on 04/10/21at 17:44; Start 04/09/21 at 20:00 Bisacodyl (Dulcolax Tab) 10 mg PRN DAILY PRN PO CONSTIPATION - 2ND CHOICE; Start 04/10/21 at 09:15 Metoprolol Succinate (Toprol Xl) 25 mg DAILY PO Last administered on 04/10/21at 15:42; Start 04/10/21 at 15:30 Active Scripts Active Reported Vitamin B-12 (Cyanocobalamin (Vitamin B-12)) 1,000 Mcg Tablet 1,000 Mcg PO DAILY Aleve (Naproxen Sodium) 220 Mg Tablet 220 Mg PO BID Aspirin Ec (Aspirin) 81 Mg Tablet.dr 81 Mg PO DAILY Donepezil Hcl 10 Mg Tablet 10 Mg PO HS Vitals/I & O Vital Sign - Last 24 Hours 04/10/21 04/10/21 04/10/21 04/10/21 09:19 09:20 11:00 15:00 Temp 97.7 97.6 97.7 97.6 Pulse 63 63 66 70 Resp 17 18 B/P (MAP) 148/68 148/68 131/66 (87) 127/60 (82) Pulse Ox 99 97 O2 Delivery Room Air Room Air 04/10/21 04/10/21 04/10/21 04/10/21 15:42 19:45 20:00 22:45 Temp 97.8 97.9 97.8 97.9 Pulse 78 65 63 Resp 18 18 B/P (MAP) 127/60 195/75 (115) 200/88 (125) Pulse Ox 99 99 O2 Delivery Room Air Room Air Room Air 04/10/21 04/11/21 22:58 03:00 Temp 97.7 97.7 Pulse 65 68 Resp 18 B/P (MAP) 200/88 162/69 (100) Pulse Ox 99 O2 Delivery Room Air Intake and Output 04/10/21 04/10/21 04/11/21 15:00 23:00 07:00 Intake Total 100 ml Output Total 300 ml Balance -200 ml Justifications for Admission Other Justification BEATRICE DENIS MD Apr 11, 2021 08:54
[2021-04-11 08:55] LABS: BASO % 0 % (0-3); EOS % 1 % (0-3); HEMATOCRIT 27.3 % (39.0-53.0); HEMOGLOBIN 9.9 g/dL (13.0-17.5); LYMPH # 0.9 x10^3/uL (1.0-4.8); LYMPH % 26 % (24-48); MEAN CORPUSCULAR HEMOGLOBIN 36 pg (25-35); MEAN CORPUSCULAR HGB CONC 36 g/dL (31-37); MEAN CORPUSCULAR VOLUME 98 fL (79-100); MONO # 0.2 x10^3/uL (0.0-1.1); MONO % 6 % (0-9); NEUT # 2.3 x10^3/uL (1.8-7.7); NEUT % 67 % (31-73); PLATELET COUNT 57 x10^3/uL (140-400); RED BLOOD COUNT 2.79 x10^6/uL (4.30-5.70); RED CELL DISTRIBUTION WIDTH 14.6 % (11.5-14.5); WHITE BLOOD COUNT 3.5 x10^3/uL (4.0-11.0)
[2021-04-11] MEDS: CYANOCOBALAMIN (VITAMIN B-12) 1,000 MCG TABLET. PO SCH (09:00)
[2021-04-11] MEDS: DOCUSATE SODIUM 100 MG CAPSULE. PO SCH ×2 (09:00→21:00)
[2021-04-11] MEDS: ASPIRIN ENTERIC COATED 81 MG TABLET.DR. PO SCH (09:21)
[2021-04-11] MEDS: DIGOXIN 125 MCG TABLET. PO SCH (09:23)
[2021-04-11] MEDS: METOPROLOL SUCC 24HR ER 25 MG TAB.ER.24H. PO SCH (09:23)
--- NOTE | 2021-04-11 12:06 | PDOC ---
CARDIO Progress Notes Date and Time Date of Service 04/11/2021 Time of Evaluation 1140 Subjective Subjective: No Chest Pain, No shortness of breath, No Palpitations Vitals Vitals Vital Signs Date Time Temp Pulse Resp B/P (MAP) Pulse Ox O2 Delivery O2 Flow Rate FiO2 04/11/21 09:23 70 170/74 04/11/21 08:00 Room Air 04/11/21 07:15 97.8 18 98 97.8 Weight Weight [ ] Input and Output Intake and Output Intake and Output 04/11/21 06:59 Intake Total 100 ml Output Total 300 ml Balance -200 ml Intake Oral 100 ml Output Urine Total 300 ml # Voids 2 # Bowel Movements 1 Laboratory Labs Laboratory Tests Test 04/11/21 07:40 White Blood Count 3.5 x10^3/uL (4.0-11.0) Red Blood Count 2.79 x10^6/uL (4.30-5.70) Hemoglobin 9.9 g/dL (13.0-17.5) Hematocrit 27.3 % (39.0-53.0) Mean Corpuscular Volume 98 fL (79-100) Mean Corpuscular Hemoglobin 36 pg (25-35) Mean Corpuscular Hemoglobin Concent 36 g/dL (31-37) Red Cell Distribution Width 14.6 % (11.5-14.5) Platelet Count 57 x10^3/uL (140-400) Neutrophils (%) (Auto) 67 % (31-73) Lymphocytes (%) (Auto) 26 % (24-48) Monocytes (%) (Auto) 6 % (0-9) Eosinophils (%) (Auto) 1 % (0-3) Basophils (%) (Auto) 0 % (0-3) Neutrophils # (Auto) 2.3 x10^3/uL (1.8-7.7) Lymphocytes # (Auto) 0.9 x10^3/uL (1.0-4.8) Monocytes # (Auto) 0.2 x10^3/uL (0.0-1.1) Eosinophils # (Auto) 0.0 x10^3/uL (0.0-0.7) Basophils # (Auto) 0.0 x10^3/uL (0.0-0.2) Sodium Level 140 mmol/L (136-145) Potassium Level 3.6 mmol/L (3.5-5.1) Chloride Level 106 mmol/L (98-107) Carbon Dioxide Level 31 mmol/L (21-32) Anion Gap 3 (6-14) Blood Urea Nitrogen 24 mg/dL (8-26) Creatinine 1.0 mg/dL (0.7-1.3) Estimated GFR (Cockcroft-Gault) 71.2 BUN/Creatinine Ratio 24 (6-20) Glucose Level 91 mg/dL (70-99) Calcium Level 8.0 mg/dL (8.5-10.1) Total Bilirubin 0.5 mg/dL (0.2-1.0) Aspartate Amino Transf (AST/SGOT) 23 U/L (15-37) Alanine Aminotransferase (ALT/SGPT) 10 U/L (16-63) Alkaline Phosphatase 62 U/L (46-116) Total Protein 5.9 g/dL (6.4-8.2) Albumin 2.4 g/dL (3.4-5.0) Albumin/Globulin Ratio 0.7 (1.0-1.7) Microbiology Micro Microbiology 04/07/21 Blood Culture - Preliminary, Resulted NO GROWTH AFTER 3 DAYS Physical Exam HEENT: Neck Supple W Full Motion Chest: Symmetric LUNGS: Other (diminished) Heart: RRR (SR) Abdomen: Soft N/T Extremities: No Edema, No Calf Tenderness Neurology: alert, follow commands, confused Assessment Assessment 1. 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 AFIB RVR: new finding. Asymptomatic. Maintaining SR after dig IV. EF and WM nml 3. Thrombocytopenia: PLT at 57 4. Hx of falls 5. Dementia 6. Mild acute diastolic CHF: Due to RVR. clinically compensated 7. MARLIN: prerenal improved Recommendations 1. Continue toprol and low dose digoxin 2. 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 MCOT, follow up in office with Dr. Rodriguez on May 23 at 1:15 PM 4. Recommend alternative to aricept and DC naproxen 5. Resume baby ASA when clear with neurosurgery if PLT is stable Justicifation of Admission Dx: Justifications for Admission: Justification of Admission Dx: Yes JU VALDIVIA [employer] Apr 11, 2021 12:06
--- NOTE | 2021-04-11 12:15 | NUR ---
SS following up with discharge planning. SS reviewed pt chart and discussed with pt RN. Pt is currently on room air. COVID19 negative. PT[place]OT [facility]. SS met with pt and discussed with pt's family via phone. Pt's daughter Darling, , is requesting referral [facility] to [facility], [facility]; fax [phone]. SS phoned and faxed referral as requested. SS left voicemail for Raghav at [facility], . Per pt's daughter pt has had COVID19 vaccines at [facility] on 11/01/2020 and 11/28/2020. (Moderna). SS will continue to follow for discharge planning.
[2021-04-11] MEDS: hydrALAZINE 20 MG/ML VIAL. IVP PRN (15:39)
--- NOTE | 2021-04-11 16:27 | PDOC ---
[facility] PROGRESS NOTE Date of Service DOS: DATE: 04/11/21 TIME: 16:26 Chief Complaint Chief Complaint Subdural hematoma status post left craniotomy 04/07/2021 with drain placed. Weakness Ams Mild anemia secondary acute blood loss Severe protein malnutrition History of Present Illness History of Present Illness 04/11/2021 No acute events overnight. Patient seen and examined bedside. No complaints at this time. Patient is status post left craniotomy. No focal deficits at this time. Patient's chart, labs, images were reviewed and discussed with RN 04/10/2021 Pt seen and examined at bedside Pt in NAD Wound is CDIT D/W RN Chart reviewed 04/09/21 Pt seen and examined at bedside Pt in NAD Pt cannot remember how he hurt his head D/W RN Chart reviewed Patient is a 85 year old male with history of dementia presenting to the ED today via EMS to be evaluated for altered mental status and generalized weakness. It is unknown when his symptoms began. Patient is answering simple questions with yes or no but seem not to follow much directions. Family came to the ED later, they state patient has had general weakness and altered mental status since this morning. They deny patient falling today but states a couple months ago he fell off his truck bed. Vitals/I&O Vitals/I&O: Vital Signs Date Time Temp Pulse Resp B/P (MAP) Pulse Ox O2 Delivery O2 Flow Rate FiO2 04/11/21 15:39 59 203/59 04/11/21 14:20 97.9 97 Room Air 97.9 04/11/21 11:30 20 I & O 04/10/21 04/10/21 04/11/21 15:00 23:00 07:00 Intake Total 100 ml Output Total 300 ml Balance -200 ml Physical Exam General: Alert, Cooperative, No acute distress Heart: Regular rate, Normal S1, Other (AFIB RVR) Lungs: Clear Abdomen: Soft, No tenderness Extremities: No cyanosis, No edema Skin: Other (dressing C,D,I) Labs Labs: Laboratory Tests Test 04/11/21 07:40 White Blood Count 3.5 x10^3/uL (4.0-11.0) Red Blood Count 2.79 x10^6/uL (4.30-5.70) Hemoglobin 9.9 g/dL (13.0-17.5) Hematocrit 27.3 % (39.0-53.0) Mean Corpuscular Volume 98 fL (79-100) Mean Corpuscular Hemoglobin 36 pg (25-35) Mean Corpuscular Hemoglobin Concent 36 g/dL (31-37) Red Cell Distribution Width 14.6 % (11.5-14.5) Platelet Count 57 x10^3/uL (140-400) Neutrophils (%) (Auto) 67 % (31-73) Lymphocytes (%) (Auto) 26 % (24-48) Monocytes (%) (Auto) 6 % (0-9) Eosinophils (%) (Auto) 1 % (0-3) Basophils (%) (Auto) 0 % (0-3) Neutrophils # (Auto) 2.3 x10^3/uL (1.8-7.7) Lymphocytes # (Auto) 0.9 x10^3/uL (1.0-4.8) Monocytes # (Auto) 0.2 x10^3/uL (0.0-1.1) Eosinophils # (Auto) 0.0 x10^3/uL (0.0-0.7) Basophils # (Auto) 0.0 x10^3/uL (0.0-0.2) Sodium Level 140 mmol/L (136-145) Potassium Level 3.6 mmol/L (3.5-5.1) Chloride Level 106 mmol/L (98-107) Carbon Dioxide Level 31 mmol/L (21-32) Anion Gap 3 (6-14) Blood Urea Nitrogen 24 mg/dL (8-26) Creatinine 1.0 mg/dL (0.7-1.3) Estimated GFR (Cockcroft-Gault) 71.2 BUN/Creatinine Ratio 24 (6-20) Glucose Level 91 mg/dL (70-99) Calcium Level 8.0 mg/dL (8.5-10.1) Total Bilirubin 0.5 mg/dL (0.2-1.0) Aspartate Amino Transf (AST/SGOT) 23 U/L (15-37) Alanine Aminotransferase (ALT/SGPT) 10 U/L (16-63) Alkaline Phosphatase 62 U/L (46-116) Total Protein 5.9 g/dL (6.4-8.2) Albumin 2.4 g/dL (3.4-5.0) Albumin/Globulin Ratio 0.7 (1.0-1.7) Assessment and Plan Assessmemt and Plan Problems Medical Problems: (1) Midline shift of brain due to hematoma Status: Acute Comment Review of Relevant I have reviewed the following items emperatriz (where applicable) has been applied. Justifications for Admission Other Justification BRUNA OGDEN MD Apr 11, 2021 16:27
[2021-04-11] MEDS: DONEPEZIL HCL 10 MG TABLET. PO SCH (19:03)
[2021-04-12] VITALS (12 sets, daily range): BP systolic 135–218; BP diastolic 62–86
[2021-04-12] MEDS: hydrALAZINE 20 MG/ML VIAL. IVP PRN ×2 (00:19→14:17)
[2021-04-12] MEDS: ACETAMINOPHEN 325 MG TABLET. PO SCH ×3 (06:09→20:40)
[2021-04-12 07:06] LABS: BASO % 0 % (0-3); EOS % 1 % (0-3); HEMATOCRIT 30.4 % (39.0-53.0); HEMOGLOBIN 10.7 g/dL (13.0-17.5); LYMPH # 0.9 x10^3/uL (1.0-4.8); LYMPH % 26 % (24-48); MEAN CORPUSCULAR HEMOGLOBIN 34 pg (25-35); MEAN CORPUSCULAR HGB CONC 35 g/dL (31-37); MEAN CORPUSCULAR VOLUME 98 fL (79-100); MONO # 0.2 x10^3/uL (0.0-1.1); MONO % 5 % (0-9); NEUT # 2.5 x10^3/uL (1.8-7.7); NEUT % 68 % (31-73); PLATELET COUNT 62 x10^3/uL (140-400); RED BLOOD COUNT 3.11 x10^6/uL (4.30-5.70); RED CELL DISTRIBUTION WIDTH 14.7 % (11.5-14.5); WHITE BLOOD COUNT 3.7 x10^3/uL (4.0-11.0)
[2021-04-12 07:25] LABS: ALBUMIN 2.7 g/dL (3.4-5.0); ALBUMIN/GLOBULIN RATIO 0.7 (1.0-1.7); CALCIUM 8.3 mg/dL (8.5-10.1); GFR 71.2; POTASSIUM 3.4 mmol/L (3.5-5.1); TOTAL BILIRUBIN 0.6 mg/dL (0.2-1.0); TOTAL PROTEIN 6.4 g/dL (6.4-8.2)
[2021-04-12] MEDS: DOCUSATE SODIUM 100 MG CAPSULE. PO SCH ×2 (09:00→20:40)
[2021-04-12] MEDS: CYANOCOBALAMIN (VITAMIN B-12) 1,000 MCG TABLET. PO SCH (09:00)
[2021-04-12] MEDS: ASPIRIN ENTERIC COATED 81 MG TABLET.DR. PO SCH (09:00)
[2021-04-12] MEDS: DIGOXIN 125 MCG TABLET. PO SCH (09:12)
[2021-04-12] MEDS: METOPROLOL SUCC 24HR ER 25 MG TAB.ER.24H. PO SCH (09:13)
--- NOTE | 2021-04-12 09:20 | PDOC ---
PROGRESS NOTES Date of Service DATE: 04/12/21 TIME: 09:17 Subjective Subjective No new complaints. Objective Objective Vital Signs Date Time Temp Pulse Resp B/P (MAP) Pulse Ox O2 Delivery O2 Flow Rate FiO2 04/12/21 09:13 72 182/82 04/12/21 06:49 97.9 16 99 Room Air 97.9 04/08/21 11:00 2.0 Intake and Output 04/12/21 07:00 Intake Total 0 ml Output Total 400 ml Balance -400 ml Intake Oral 0 ml Output Urine Total 400 ml # Voids 1 # Bowel Movements 1 Physical Exam Physical Exam He is alert,supine in bed and oral intake is low and he is voiding well and walking with roller walker in his room. Some problems with hypertension yesterday. Assessment Assessment Problems Medical Problems: (1) Midline shift of brain due to hematoma Status: Acute Plan Plan of Care Agree with plans for SNF transfer as family wants when medically stable. Comment Review of Relevant I have reviewed the following items emperatriz (where applicable) has been applied. Labs Laboratory Tests Test 04/11/21 07:40 04/12/21 05:55 White Blood Count 3.5 x10^3/uL (4.0-11.0) 3.7 x10^3/uL (4.0-11.0) Red Blood Count 2.79 x10^6/uL (4.30-5.70) 3.11 x10^6/uL (4.30-5.70) Hemoglobin 9.9 g/dL (13.0-17.5) 10.7 g/dL (13.0-17.5) Hematocrit 27.3 % (39.0-53.0) 30.4 % (39.0-53.0) Mean Corpuscular Volume 98 fL (79-100) 98 fL (79-100) Mean Corpuscular Hemoglobin 36 pg (25-35) 34 pg (25-35) Mean Corpuscular Hemoglobin Concent 36 g/dL (31-37) 35 g/dL (31-37) Red Cell Distribution Width 14.6 % (11.5-14.5) 14.7 % (11.5-14.5) Platelet Count 57 x10^3/uL (140-400) 62 x10^3/uL (140-400) Neutrophils (%) (Auto) 67 % (31-73) 68 % (31-73) Lymphocytes (%) (Auto) 26 % (24-48) 26 % (24-48) Monocytes (%) (Auto) 6 % (0-9) 5 % (0-9) Eosinophils (%) (Auto) 1 % (0-3) 1 % (0-3) Basophils (%) (Auto) 0 % (0-3) 0 % (0-3) Neutrophils # (Auto) 2.3 x10^3/uL (1.8-7.7) 2.5 x10^3/uL (1.8-7.7) Lymphocytes # (Auto) 0.9 x10^3/uL (1.0-4.8) 0.9 x10^3/uL (1.0-4.8) Monocytes # (Auto) 0.2 x10^3/uL (0.0-1.1) 0.2 x10^3/uL (0.0-1.1) Eosinophils # (Auto) 0.0 x10^3/uL (0.0-0.7) 0.0 x10^3/uL (0.0-0.7) Basophils # (Auto) 0.0 x10^3/uL (0.0-0.2) 0.0 x10^3/uL (0.0-0.2) Sodium Level 140 mmol/L (136-145) 140 mmol/L (136-145) Potassium Level 3.6 mmol/L (3.5-5.1) 3.4 mmol/L (3.5-5.1) Chloride Level 106 mmol/L (98-107) 104 mmol/L (98-107) Carbon Dioxide Level 31 mmol/L (21-32) 33 mmol/L (21-32) Anion Gap 3 (6-14) 3 (6-14) Blood Urea Nitrogen 24 mg/dL (8-26) 15 mg/dL (8-26) Creatinine 1.0 mg/dL (0.7-1.3) 1.0 mg/dL (0.7-1.3) Estimated GFR (Cockcroft-Gault) 71.2 71.2 BUN/Creatinine Ratio 24 (6-20) 15 (6-20) Glucose Level 91 mg/dL (70-99) 84 mg/dL (70-99) Calcium Level 8.0 mg/dL (8.5-10.1) 8.3 mg/dL (8.5-10.1) Total Bilirubin 0.5 mg/dL (0.2-1.0) 0.6 mg/dL (0.2-1.0) Aspartate Amino Transf (AST/SGOT) 23 U/L (15-37) 21 U/L (15-37) Alanine Aminotransferase (ALT/SGPT) 10 U/L (16-63) 7 U/L (16-63) Alkaline Phosphatase 62 U/L (46-116) 69 U/L (46-116) Total Protein 5.9 g/dL (6.4-8.2) 6.4 g/dL (6.4-8.2) Albumin 2.4 g/dL (3.4-5.0) 2.7 g/dL (3.4-5.0) Albumin/Globulin Ratio 0.7 (1.0-1.7) 0.7 (1.0-1.7) Laboratory Tests Test 04/12/21 05:55 White Blood Count 3.7 x10^3/uL (4.0-11.0) Red Blood Count 3.11 x10^6/uL (4.30-5.70) Hemoglobin 10.7 g/dL (13.0-17.5) Hematocrit 30.4 % (39.0-53.0) Mean Corpuscular Volume 98 fL (79-100) Mean Corpuscular Hemoglobin 34 pg (25-35) Mean Corpuscular Hemoglobin Concent 35 g/dL (31-37) Red Cell Distribution Width 14.7 % (11.5-14.5) Platelet Count 62 x10^3/uL (140-400) Neutrophils (%) (Auto) 68 % (31-73) Lymphocytes (%) (Auto) 26 % (24-48) Monocytes (%) (Auto) 5 % (0-9) Eosinophils (%) (Auto) 1 % (0-3) Basophils (%) (Auto) 0 % (0-3) Neutrophils # (Auto) 2.5 x10^3/uL (1.8-7.7) Lymphocytes # (Auto) 0.9 x10^3/uL (1.0-4.8) Monocytes # (Auto) 0.2 x10^3/uL (0.0-1.1) Eosinophils # (Auto) 0.0 x10^3/uL (0.0-0.7) Basophils # (Auto) 0.0 x10^3/uL (0.0-0.2) Sodium Level 140 mmol/L (136-145) Potassium Level 3.4 mmol/L (3.5-5.1) Chloride Level 104 mmol/L (98-107) Carbon Dioxide Level 33 mmol/L (21-32) Anion Gap 3 (6-14) Blood Urea Nitrogen 15 mg/dL (8-26) Creatinine 1.0 mg/dL (0.7-1.3) Estimated GFR (Cockcroft-Gault) 71.2 BUN/Creatinine Ratio 15 (6-20) Glucose Level 84 mg/dL (70-99) Calcium Level 8.3 mg/dL (8.5-10.1) Total Bilirubin 0.6 mg/dL (0.2-1.0) Aspartate Amino Transf (AST/SGOT) 21 U/L (15-37) Alanine Aminotransferase (ALT/SGPT) 7 U/L (16-63) Alkaline Phosphatase 69 U/L (46-116) Total Protein 6.4 g/dL (6.4-8.2) Albumin 2.7 g/dL (3.4-5.0) Albumin/Globulin Ratio 0.7 (1.0-1.7) Microbiology 04/07/21 Blood Culture - Preliminary, Resulted NO GROWTH AFTER 4 DAYS Medications Current Medications Cefazolin Sodium (Ancef) 1 gm 1X ONCE IVP ; Start 04/07/21 at 20:00; Stop 04/07/21 at 20:01; Status Cancel Sodium Chloride 1,000 ml @ 1,000 mls/hr 1X ONCE IV ; Start 04/07/21 at 19:45; Stop 04/07/21 at 20:44; Status Cancel Gelatin (Gelfoam Size 100) 1 each STK-MED ONCE .ROUTE Last administered on 04/07/21at 21:19; Start 04/07/21 at 19:38; Stop 04/07/21 at 19:39; Status DC Bupivacaine HCl/ Epinephrine Bitart (Sensorcain-Epi 0.5% Kit) 30 ml STK-MED ONCE .ROUTE ; Start 04/07/21 at 19:38; Stop 04/07/21 at 19:39; Status DC Cellulose (Surgicel Hemostat 4x8) 1 each STK-MED ONCE .ROUTE ; Start 04/07/21 at 19:38; Stop 04/07/21 at 19:39; Status DC Thrombin 20,000 unit STK-MED ONCE TP Last administered on 04/07/21at 21:19; Start 04/07/21 at 19:38; Stop 04/07/21 at 19:39; Status DC Bupivacaine HCl/ Epinephrine Bitart (Sensorcain-Epi 0.5%-1:027529 Mpf) 30 ml STK-MED ONCE .ROUTE Last administered on 04/07/21at 21:19; Start 04/07/21 at 19:39; Stop 04/07/21 at 19:39; Status DC Rocuronium [place] (Zemuron) 50 mg STK-MED ONCE .ROUTE ; Start 04/07/21 at 19:46; Stop 04/07/21 at 19:46; Status DC Dexamethasone Sodium Phosphate (Decadron) 20 mg STK-MED ONCE .ROUTE ; Start 04/07/21 at 19:51; Stop 04/07/21 at 19:51; Status DC Lidocaine HCl (Lidocaine Pf 2% Vial) 5 ml STK-MED ONCE .ROUTE ; Start 04/07/21 at 19:51; Stop 04/07/21 at 19:51; Status DC Ondansetron HCl (Zofran) 4 mg STK-MED ONCE .ROUTE ; Start 04/07/21 at 19:51; Stop 04/07/21 at 19:51; Status DC Propofol (Diprivan) 200 mg STK-MED ONCE IV ; Start 04/07/21 at 19:51; Stop 04/07/21 at 19:51; Status DC Cefazolin Sodium 1 gm/Sodium Chloride 1,000 ml @ 1,000 mls/hr 1X ONCE IRR ; Start 04/07/21 at 20:00; Stop 04/07/21 at 20:59; Status DC Cefazolin Sodium/ Dextrose 50 ml @ As Directed STK-MED ONCE IV ; Start 04/07/21 at 20:29; Stop 04/07/21 at 20:29; Status DC Fentanyl Citrate (Fentanyl 2ml Vial) 25 mcg PRN Q5MIN PRN IVP MILD PAIN 1-3; Start 04/07/21 at 21:30; Stop 04/08/21 at 21:29; Status DC Fentanyl Citrate (Fentanyl 2ml Vial) 50 mcg PRN Q5MIN PRN IVP MODERATE PAIN 4- 6; Start 04/07/21 at 21:30; Stop 04/08/21 at 21:29; Status DC Morphine Sulfate (Morphine Sulfate) 1 mg PRN Q10MIN PRN IVP SEVERE PAIN 7-10; Start 04/07/21 at 21:30; Stop 04/08/21 at 21:29; Status DC Ringer's Solution 1,000 ml @ 30 mls/hr Q24H IV ; Start 04/07/21 at 21:30; Stop 04/08/21 at 09:29; Status DC Hydromorphone HCl (Dilaudid) 0.5 mg PRN Q10MIN PRN IVP SEVERE PAIN 7-10, 2nd CHOICE; Start 04/07/21 at 21:30; Stop 04/08/21 at 21:29; Status DC Prochlorperazine Edisylate (Compazine) 5 mg PACU PRN PRN IVP NAUSEA, MRX1; Start 04/07/21 at 21:30; Stop 04/08/21 at 21:29; Status DC Ondansetron HCl (Zofran) 4 mg PRN Q8HRS PRN IVP NAUSEA/VOMITING; Start 04/07/21 at 21:45; Stop 04/08/21 at 21:44; Status DC Nicardipine HCl (Cardene) 25 mg STK-MED ONCE IV ; Start 04/07/21 at 22:07; Stop 04/07/21 at 22:07; Status DC Sevoflurane (Ultane) 60 ml STK-MED ONCE IH ; Start 04/07/21 at 22:07; Stop 04/07/21 at 22:08; Status DC Nicardipine HCl 50 mg/Sodium Chloride 250 ml @ 25 mls/hr TITRATE PRN IV PER PROTOCOL Last administered on 04/07/21at 22:47; Start 04/07/21 at 22:15 Hydralazine HCl (Apresoline Inj) 5 mg PRN Q6HRS PRN IVP TO KEEP SBP<140mmHg Last administered on 04/12/21at 00:19; Start 04/07/21 at 22:15 Al Hydroxide/Mg Hydroxide (Mylanta Plus Xs) 30 ml PRN Q3HRS PRN PO HEARTBURN / GAS; Start 04/07/21 at 22:15 Calcium Carbonate/ Glycine (Tums) 500 mg PRN Q3HRS PRN PO INDIGESTION; Start 04/07/21 at 22:15 Diphenhydramine HCl (Benadryl) 25 mg PRN Q6HRS PRN PO ITCHING; Start 04/07/21 at 22:15 Sodium Chloride (Normal Saline Flush) 3 ml QSHIFT PRN IV AFTER MEDS AND BLOOD DRAWS; Start 04/07/21 at 22:15 Potassium Chloride/Dextrose/ Sod Cl 1,000 ml @ 75 mls/hr [id number] IV Last administered on 04/07/21at 23:14; Start 04/07/21 at 22:30; Stop 04/08/21 at 11:34; Status DC Dextrose (Dextrose 50%-Water Syringe) 12.5 gm PRN Q15MIN PRN IV SEE COMMENTS; Start 04/07/21 at 22:15 Acetaminophen/ Hydrocodone Bitart (Lortab 5/325) 1 tab PRN Q4HRS PRN PO MILD PAIN 1-3; Start 04/07/21 at 22:15 Acetaminophen (Tylenol) 650 mg Q8HRS PO Last administered on 04/12/21at 06:09; Start 04/08/21 at 06:00 Docusate Sodium (Colace) 100 mg BID PO Last administered on 04/10/21at 21:32; Start 04/08/21 at 09:00 Magnesium Hydroxide (Milk Of Magnesia) 2,400 mg PRN Q12HR PRN PO CONSTIPATION; Start 04/07/21 at 22:15 Cefazolin Sodium (Ancef) 1 gm Q8H IVP Last administered on 04/08/21at 21:10; Start 04/08/21 at 04:30; Stop 04/08/21 at 20:31; Status DC Metoprolol Tartrate (Lopressor Vial) 5 mg 1X ONCE IVP Last administered on 04/09/21at 08:48; Start 04/09/21 at 09:30; Stop 04/09/21 at 09:31; Status DC Digoxin (Lanoxin) 500 mcg 1X ONCE IV Last administered on 04/09/21at 10:30; Start 04/09/21 at 10:45; Stop 04/09/21 at 10:46; Status DC Potassium Chloride (Klor-Con) 40 meq 1X ONCE PO Last administered on 04/09/21at 14:30; Start 04/09/21 at 15:00; Stop 04/09/21 at 15:01; Status DC Sodium Chloride 1,000 ml @ 60 mls/hr 1X ONCE IV Last administered on at 14:31; Start 04/09/21 at 14:00; Stop 04/10/21 at 06:39; Status DC Digoxin (Lanoxin) 125 mcg DAILY PO Last administered on 04/12/21at 09:12; Start 04/09/21 at 16:00 Aspirin (Ecotrin) 81 mg DAILY PO Last administered on 04/11/21at 09:21; Start 04/10/21 at 09:00 Cyanocobalamin (Vitamin B-12) 1,000 mcg DAILY PO Last administered on 04/10/21at 09:18; Start 04/10/21 at 09:00 Donepezil HCl (Aricept) 10 mg HS PO Last administered on 04/10/21at 21:32; Start 04/09/21 at 21:00 Naproxen (Naprosyn) 250 mg BIDWMEALS PO Last administered on 04/10/21at 17:44; Start 04/09/21 at 20:00; Stop 04/11/21 at 12:07; Status DC Bisacodyl (Dulcolax Tab) 10 mg PRN DAILY PRN PO CONSTIPATION - 2ND CHOICE; Start 04/10/21 at 09:15 Metoprolol Succinate (Toprol Xl) 25 mg DAILY PO Last administered on 04/12/21at 09:13; Start 04/10/21 at 15:30 Active Scripts Active Reported Vitamin B-12 (Cyanocobalamin (Vitamin B-12)) 1,000 Mcg Tablet 1,000 Mcg PO DAILY Aleve (Naproxen Sodium) 220 Mg Tablet 220 Mg PO BID Aspirin Ec (Aspirin) 81 Mg Tablet.dr 81 Mg PO DAILY Donepezil Hcl 10 Mg Tablet 10 Mg PO HS Vitals/I & O Vital Sign - Last 24 Hours 04/11/21 04/11/21 04/11/21 04/11/21 09:23 09:23 11:30 14:20 Temp 98.2 97.9 98.2 97.9 Pulse 70 70 61 59 Resp 20 B/P (MAP) 170/74 170/74 169/75 (106) 165/77 (106) Pulse Ox 98 97 O2 Delivery Room Air 04/11/21 04/11/21 04/11/21 04/11/21 15:39 15:41 16:11 19:00 Temp 98.0 98.0 Pulse 59 58 64 64 Resp 16 B/P (MAP) 203/59 184/87 (119) 140/66 (90) 177/82 (113) Pulse Ox 97 O2 Delivery Room Air 04/11/21 04/11/21 04/12/21 04/12/21 20:00 23:00 00:19 03:00 Temp 97.5 98.0 97.5 98.0 Pulse 62 62 63 Resp 16 16 B/P (MAP) 171/77 (108) 171/77 163/77 (105) Pulse Ox 96 95 O2 Delivery Room Air Room Air Room Air 04/12/21 04/12/21 04/12/21 06:49 09:12 09:13 Temp 97.9 97.9 Pulse 61 72 72 Resp 16 B/P (MAP) 182/82 (115) 182/82 182/82 Pulse Ox 99 O2 Delivery Room Air Intake and Output 04/11/21 04/11/21 04/12/21 15:00 23:00 07:00 Intake Total 0 ml Output Total 100 ml 300 ml Balance -100 ml -300 ml 0 ml Justifications for Admission Other Justification BEATRICE DENIS MD Apr 12, 2021 09:20
--- NOTE | 2021-04-12 10:55 | NUR ---
SS following up with discharge planning. SS reviewed pt chart and discussed with pt RN. Pt is currently on room air. COVID19 negative. PT/OT recommended chcf unit. Pt accepted at [facility], ; fax [phone]. Insurance authorization received. Bed available today. Dr. Espinal notified. Pending discharge orders [facility] reported that they can transport pt to facility at 1400 via wheelchair. SS will continue to follow for discharge planning. Addendum: 04/12/21 at 1222 by DAMEON BRENNAN SS following up with discharge planning. Discharge orders received for chcf unit. Discharge orders phoned and faxed to [facility]. Pt will discharge today and go to [facility] at 1400 via wheelchair. Report# [phone] ([facility]). Pt, pt's RN, and pt's family notified. Addendum: 04/12/21 at 1505 by DAMEON BRENNAN SS Per RN, pt's blood pressure not stable. Discussed with Cardiology. Transportation cancelled at this time.
[2021-04-12] MEDS ORDERED: DIGO125T3 PO (11:27)
[2021-04-12] MEDS ORDERED: METO-239 PO (11:27)
[2021-04-12] MEDS ORDERED: AMLO-187 PO (11:27)
[2021-04-12] MEDS ORDERED: HYDR-2761 PO (11:27)
--- NOTE | 2021-04-12 11:27 | PDOC ---
[employer] PROGRESS NOTE Date of Service DOS: DATE: 04/12/21 TIME: 11:24 Chief Complaint Chief Complaint Subdural hematoma status post left craniotomy 04/07/2021 with drain placed. Weakness. AMS. Mild anemia secondary acute blood loss. Severe protein malnutrition. History of Present Illness History of Present Illness Patient is a 85 year old male with history of dementia presenting to the ED today via EMS to be evaluated for altered mental status and generalized weakness. It is unknown when his symptoms began. Patient is answering simple questions with yes or no but seem not to follow much directions. Family came to the ED later, they state patient has had general weakness and altered mental status since this morning. They deny patient falling today but states a couple months ago he fell off his truck bed. 04/09/21 Pt seen and examined at bedside. Pt in NAD. Pt cannot remember how he hurt his head. D/W RN. Chart reviewed. 04/10/2021 Pt seen and examined at bedside. Pt in NAD. Wound is CDIT. D/W RN. Chart reviewed. 04/11/2021 No acute events overnight. Patient seen and examined bedside. No complaints at this time. Patient is status post left craniotomy. No focal deficits at this time. Patient's chart, labs, images were reviewed and discussed with RN. 04/12/2021 Patient seen and examined at bedside. D/W RN. Chart reviewed. He is sitting up in bed, alert and working with PT/OT. Plan for additional anti-hypertensive medication. Vitals/I&O Vitals/I&O: Vital Signs Date Time Temp Pulse Resp B/P (MAP) Pulse Ox O2 Delivery O2 Flow Rate FiO2 04/12/21 09:13 72 182/82 04/12/21 06:49 97.9 16 99 Room Air 97.9 I & O 04/11/21 04/11/21 04/12/21 15:00 23:00 07:00 Intake Total 0 ml Output Total 100 ml 300 ml Balance -100 ml -300 ml 0 ml Physical Exam General: Alert, Cooperative, No acute distress Heart: Regular rate, Normal S1, Other (AFIB RVR) Lungs: Clear Abdomen: Soft, No tenderness Extremities: No cyanosis, No edema Skin: Other (dressing C,D,I) Labs Labs: Laboratory Tests Test 8/13/21 05:55 White Blood Count 3.7 x10^3/uL (4.0-11.0) Red Blood Count 3.11 x10^6/uL (4.30-5.70) Hemoglobin 10.7 g/dL (13.0-17.5) Hematocrit 30.4 % (39.0-53.0) Mean Corpuscular Volume 98 fL (79-100) Mean Corpuscular Hemoglobin 34 pg (25-35) Mean Corpuscular Hemoglobin Concent 35 g/dL (31-37) Red Cell Distribution Width 14.7 % (11.5-14.5) Platelet Count 62 x10^3/uL (140-400) Neutrophils (%) (Auto) 68 % (31-73) Lymphocytes (%) (Auto) 26 % (24-48) Monocytes (%) (Auto) 5 % (0-9) Eosinophils (%) (Auto) 1 % (0-3) Basophils (%) (Auto) 0 % (0-3) Neutrophils # (Auto) 2.5 x10^3/uL (1.8-7.7) Lymphocytes # (Auto) 0.9 x10^3/uL (1.0-4.8) Monocytes # (Auto) 0.2 x10^3/uL (0.0-1.1) Eosinophils # (Auto) 0.0 x10^3/uL (0.0-0.7) Basophils # (Auto) 0.0 x10^3/uL (0.0-0.2) Sodium Level 140 mmol/L (136-145) Potassium Level 3.4 mmol/L (3.5-5.1) Chloride Level 104 mmol/L (98-107) Carbon Dioxide Level 33 mmol/L (21-32) Anion Gap 3 (6-14) Blood Urea Nitrogen 15 mg/dL (8-26) Creatinine 1.0 mg/dL (0.7-1.3) Estimated GFR (Cockcroft-Gault) 71.2 BUN/Creatinine Ratio 15 (6-20) Glucose Level 84 mg/dL (70-99) Calcium Level 8.3 mg/dL (8.5-10.1) Total Bilirubin 0.6 mg/dL (0.2-1.0) Aspartate Amino Transf (AST/SGOT) 21 U/L (15-37) Alanine Aminotransferase (ALT/SGPT) 7 U/L (16-63) Alkaline Phosphatase 69 U/L (46-116) Total Protein 6.4 g/dL (6.4-8.2) Albumin 2.7 g/dL (3.4-5.0) Albumin/Globulin Ratio 0.7 (1.0-1.7) Review of Systems Review of Systems: Denies fever or chills. Denies loss of appetite. Assessment and Plan Assessmemt and Plan Problems Medical Problems: (1) Midline shift of brain due to hematoma Status: Acute Assessment: Subdural hematoma status post left craniotomy 04/07/2021 with drain placed. Weakness. AMS. Mild anemia secondary acute blood loss. Severe protein malnutrition. Plan: Cardiac monitoring. Wound care. Trend labs. PT/OT/ST. Toprol. Digoxin. Hold aspirin and naproxen Hold Aricept Norvasc. Home meds. DVT prophylaxis. Full code. Appreciate subspeciality input. [facility]. Comment Review of Relevant I have reviewed the following items emperatriz (where applicable) has been applied. Justifications for Admission Other Justification MARKIE ALMODOVAR III DO Apr 12, 2021 11:27
--- NOTE | 2021-04-12 11:28 | SNU/HH DC ---
DISCHARGE ORDERS DISCHARGE INFORMATION: FINAL DIAGNOSIS Problems Medical Problems: (1) Midline shift of brain due to hematoma Status: Acute CONDITION ON DISCHARGE: Stable CODE STATUS: Code Status: Full PRISON: SNF STAY <30 DAYS: Yes HOSPICE: HOSPICE: No HOSPICE EVAL & TREAT: No LTAC: ADMIT TO LTAC: No POST DISCHARGE ORDERS: ACTIVITY ORDERS: Bedrest today DIET AFTER DISCHARGE: Cardiac TREATMENT/EQUIPMENT ORDERS: Physical Therapy For: Evalulation/Treatment Occupational Therapy For: Evaluation/Treatment DISCHARGE MEDICATIONS: Home Meds Active Scripts Hydrocodone Bit/Acetaminophen (HYDROCODONE-APAP 5-325 ) 1 Tab Tablet, 1 TAB PO PRN Q4HRS PRN for MILD PAIN 1-3 for 10 Days, #20 TAB Prov:MARKIE ALMODOVAR III DO 04/12/21 Reported Medications Cyanocobalamin (Vitamin B-12) (VITAMIN B-12) 1,000 Mcg Tablet, 1000 MCG PO DAILY for , TAB 04/09/21 Naproxen Sodium (ALEVE) 220 Mg Tablet, 220 MG PO BID for , TAB 04/09/21 Aspirin (ASPIRIN EC) 81 Mg Tablet.dr, 81 MG PO DAILY for , TAB.SR 04/09/21 Donepezil Hcl (DONEPEZIL HCL) 10 Mg Tablet, 10 MG PO HS for , TAB 04/09/21 MARKIE ALMODOVAR III DO Apr 12, 2021 11:28
--- NOTE | 2021-04-12 11:50 | DS ---
DATE OF DISCHARGE: 04/12/2021 ADMITTING DIAGNOSIS: Fall with subdural hematoma. DISCHARGE DIAGNOSES: Resolving subdural hematoma, postop day 5, left central craniotomy with evacuation of subdural hematoma. CONSULTS: Cardiology, Neurosurgery and Physiatry. HOSPITAL COURSE: The patient is a pleasant elderly male who had fallen off of a truck bed a couple months early prior to the admission. He presented with mental status change. We did some imaging. He did have subdural hematoma. He was admitted. We consulted Dr. Guardado. He was taken for emergent subdural hematoma evacuation. Over the past few days, he has returned to his baseline. He is doing better, but he is still quite weak. I saw him and examined this morning. I discussed the case with pillowcase folder and the nurse. We plan to discharge to snf. DISPOSITION: penitentiary. ACTIVITY: As tolerated. DIET: Low sodium. MEDICATIONS: Amlodipine 10 a day, digoxin 0.125 a day, p.r.n. hydrocodone, metoprolol sustained release 25 a day, and B12. We are holding his home aspirin, Aricept and naproxen. TOTAL TIME: 32 minutes. ANJEL/KEVIN DR: ANJEL/asuncion TID: [id number]
[2021-04-12] MEDS ORDERED: POTASSIUM CHLORIDE 20 MEQ TABLET.ER. PO ONE (13:00)
--- NOTE | 2021-04-12 20:12 | NUR ---
Patient's romel disability counselor placed on him today due to possible discharge. Educated patient on how to push button but reinforcement will probably be needed again. Addendum: 04/12/21 at 2016 by MARIEL STEPHENSON RN Arturo hoff
--- NOTE | 2021-04-12 20:15 | NUR ---
Zio not zoll.
[2021-04-13 02:45] VITALS: BP 141/58
[2021-04-13 07:00] VITALS: BP 127/58
[2021-04-13] MEDS: ACETAMINOPHEN 325 MG TABLET. PO SCH ×2 (07:24→13:20)
[2021-04-13 08:15] LABS: BASO % 0 % (0-3); EOS % 1 % (0-3); HEMATOCRIT 27.7 % (39.0-53.0); HEMOGLOBIN 9.7 g/dL (13.0-17.5); LYMPH # 0.9 x10^3/uL (1.0-4.8); LYMPH % 24 % (24-48); MEAN CORPUSCULAR HEMOGLOBIN 34 pg (25-35); MEAN CORPUSCULAR HGB CONC 35 g/dL (31-37); MEAN CORPUSCULAR VOLUME 98 fL (79-100); MONO # 0.2 x10^3/uL (0.0-1.1); MONO % 6 % (0-9); NEUT # 2.7 x10^3/uL (1.8-7.7); NEUT % 69 % (31-73); PLATELET COUNT 53 x10^3/uL (140-400); RED BLOOD COUNT 2.83 x10^6/uL (4.30-5.70); RED CELL DISTRIBUTION WIDTH 14.8 % (11.5-14.5); WHITE BLOOD COUNT 3.9 x10^3/uL (4.0-11.0)
[2021-04-13 08:42] LABS: ALBUMIN 2.5 g/dL (3.4-5.0); ALBUMIN/GLOBULIN RATIO 0.7 (1.0-1.7); CALCIUM 8.2 mg/dL (8.5-10.1); GFR 71.2; POTASSIUM 3.6 mmol/L (3.5-5.1); TOTAL BILIRUBIN 0.6 mg/dL (0.2-1.0)
[2021-04-13] MEDS: ASPIRIN ENTERIC COATED 81 MG TABLET.DR. PO SCH (09:00)
[2021-04-13] MEDS: CYANOCOBALAMIN (VITAMIN B-12) 1,000 MCG TABLET. PO SCH (09:56)
[2021-04-13] MEDS: DIGOXIN 125 MCG TABLET. PO SCH (09:56)
[2021-04-13] MEDS: METOPROLOL SUCC 24HR ER 25 MG TAB.ER.24H. PO SCH (09:57)
[2021-04-13] MEDS: DOCUSATE SODIUM 100 MG CAPSULE. PO SCH (09:57)
--- NOTE | 2021-04-13 10:05 | PDOC ---
PROGRESS NOTES Date of Service DATE: 04/13/21 TIME: 10:03 Subjective Subjective He denies any pain or headache. Objective Objective Vital Signs Date Time Temp Pulse Resp B/P (MAP) Pulse Ox O2 Delivery O2 Flow Rate FiO2 04/13/21 09:57 65 127/58 04/13/21 07:00 97.7 16 98 Room Air 97.7 04/08/21 11:00 2.0 Intake and Output 04/13/21 07:00 Output Total 150 ml Balance -150 ml Output Urine Total 150 ml # Voids 1 # Bowel Movements 1 Physical Exam Physical Exam He is alert,sitting in bed side chair and walking with roller walker under supervision. Assessment Assessment Problems Medical Problems: (1) Midline shift of brain due to hematoma Status: Acute Plan Plan of Care To SNF when arrangements are completed. Comment Review of Relevant I have reviewed the following items emperatriz (where applicable) has been applied. Labs Laboratory Tests Test 04/12/21 05:55 04/13/21 06:20 White Blood Count 3.7 x10^3/uL (4.0-11.0) 3.9 x10^3/uL (4.0-11.0) Red Blood Count 3.11 x10^6/uL (4.30-5.70) 2.83 x10^6/uL (4.30-5.70) Hemoglobin 10.7 g/dL (13.0-17.5) 9.7 g/dL (13.0-17.5) Hematocrit 30.4 % (39.0-53.0) 27.7 % (39.0-53.0) Mean Corpuscular Volume 98 fL (79-100) 98 fL (79-100) Mean Corpuscular Hemoglobin 34 pg (25-35) 34 pg (25-35) Mean Corpuscular Hemoglobin Concent 35 g/dL (31-37) 35 g/dL (31-37) Red Cell Distribution Width 14.7 % (11.5-14.5) 14.8 % (11.5-14.5) Platelet Count 62 x10^3/uL (140-400) 53 x10^3/uL (140-400) Neutrophils (%) (Auto) 68 % (31-73) 69 % (31-73) Lymphocytes (%) (Auto) 26 % (24-48) 24 % (24-48) Monocytes (%) (Auto) 5 % (0-9) 6 % (0-9) Eosinophils (%) (Auto) 1 % (0-3) 1 % (0-3) Basophils (%) (Auto) 0 % (0-3) 0 % (0-3) Neutrophils # (Auto) 2.5 x10^3/uL (1.8-7.7) 2.7 x10^3/uL (1.8-7.7) Lymphocytes # (Auto) 0.9 x10^3/uL (1.0-4.8) 0.9 x10^3/uL (1.0-4.8) Monocytes # (Auto) 0.2 x10^3/uL (0.0-1.1) 0.2 x10^3/uL (0.0-1.1) Eosinophils # (Auto) 0.0 x10^3/uL (0.0-0.7) 0.0 x10^3/uL (0.0-0.7) Basophils # (Auto) 0.0 x10^3/uL (0.0-0.2) 0.0 x10^3/uL (0.0-0.2) Sodium Level 140 mmol/L (136-145) 137 mmol/L (136-145) Potassium Level 3.4 mmol/L (3.5-5.1) 3.6 mmol/L (3.5-5.1) Chloride Level 104 mmol/L (98-107) 103 mmol/L (98-107) Carbon Dioxide Level 33 mmol/L (21-32) 31 mmol/L (21-32) Anion Gap 3 (6-14) 3 (6-14) Blood Urea Nitrogen 15 mg/dL (8-26) 15 mg/dL (8-26) Creatinine 1.0 mg/dL (0.7-1.3) 1.0 mg/dL (0.7-1.3) Estimated GFR (Cockcroft-Gault) 71.2 71.2 BUN/Creatinine Ratio 15 (6-20) 15 (6-20) Glucose Level 84 mg/dL (70-99) 84 mg/dL (70-99) Calcium Level 8.3 mg/dL (8.5-10.1) 8.2 mg/dL (8.5-10.1) Total Bilirubin 0.6 mg/dL (0.2-1.0) 0.6 mg/dL (0.2-1.0) Aspartate Amino Transf (AST/SGOT) 21 U/L (15-37) 18 U/L (15-37) Alanine Aminotransferase (ALT/SGPT) 7 U/L (16-63) 9 U/L (16-63) Alkaline Phosphatase 69 U/L (46-116) 68 U/L (46-116) Total Protein 6.4 g/dL (6.4-8.2) 6.0 g/dL (6.4-8.2) Albumin 2.7 g/dL (3.4-5.0) 2.5 g/dL (3.4-5.0) Albumin/Globulin Ratio 0.7 (1.0-1.7) 0.7 (1.0-1.7) Laboratory Tests Test 04/13/21 06:20 White Blood Count 3.9 x10^3/uL (4.0-11.0) Red Blood Count 2.83 x10^6/uL (4.30-5.70) Hemoglobin 9.7 g/dL (13.0-17.5) Hematocrit 27.7 % (39.0-53.0) Mean Corpuscular Volume 98 fL (79-100) Mean Corpuscular Hemoglobin 34 pg (25-35) Mean Corpuscular Hemoglobin Concent 35 g/dL (31-37) Red Cell Distribution Width 14.8 % (11.5-14.5) Platelet Count 53 x10^3/uL (140-400) Neutrophils (%) (Auto) 69 % (31-73) Lymphocytes (%) (Auto) 24 % (24-48) Monocytes (%) (Auto) 6 % (0-9) Eosinophils (%) (Auto) 1 % (0-3) Basophils (%) (Auto) 0 % (0-3) Neutrophils # (Auto) 2.7 x10^3/uL (1.8-7.7) Lymphocytes # (Auto) 0.9 x10^3/uL (1.0-4.8) Monocytes # (Auto) 0.2 x10^3/uL (0.0-1.1) Eosinophils # (Auto) 0.0 x10^3/uL (0.0-0.7) Basophils # (Auto) 0.0 x10^3/uL (0.0-0.2) Sodium Level 137 mmol/L (136-145) Potassium Level 3.6 mmol/L (3.5-5.1) Chloride Level 103 mmol/L (98-107) Carbon Dioxide Level 31 mmol/L (21-32) Anion Gap 3 (6-14) Blood Urea Nitrogen 15 mg/dL (8-26) Creatinine 1.0 mg/dL (0.7-1.3) Estimated GFR (Cockcroft-Gault) 71.2 BUN/Creatinine Ratio 15 (6-20) Glucose Level 84 mg/dL (70-99) Calcium Level 8.2 mg/dL (8.5-10.1) Total Bilirubin 0.6 mg/dL (0.2-1.0) Aspartate Amino Transf (AST/SGOT) 18 U/L (15-37) Alanine Aminotransferase (ALT/SGPT) 9 U/L (16-63) Alkaline Phosphatase 68 U/L (46-116) Total Protein 6.0 g/dL (6.4-8.2) Albumin 2.5 g/dL (3.4-5.0) Albumin/Globulin Ratio 0.7 (1.0-1.7) Microbiology 04/07/21 Blood Culture - Final, Complete NO GROWTH AFTER 5 DAYS Medications Current Medications Cefazolin Sodium (Ancef) 1 gm 1X ONCE IVP ; Start 04/07/21 at 20:00; Stop 04/07/21 at 20:01; Status Cancel Sodium Chloride 1,000 ml @ 1,000 mls/hr 1X ONCE IV ; Start 04/07/21 at 19:45; Stop 04/07/21 at 20:44; Status Cancel Gelatin (Gelfoam Size 100) 1 each STK-MED ONCE .ROUTE Last administered on 04/07/21at 21:19; Start 04/07/21 at 19:38; Stop 04/07/21 at 19:39; Status DC Bupivacaine HCl/ Epinephrine Bitart (Sensorcain-Epi 0.5% Kit) 30 ml STK-MED ONCE .ROUTE ; Start 04/07/21 at 19:38; Stop 04/07/21 at 19:39; Status DC Cellulose (Surgicel Hemostat 4x8) 1 each STK-MED ONCE .ROUTE ; Start 04/07/21 at 19:38; Stop 04/07/21 at 19:39; Status DC Thrombin 20,000 unit STK-MED ONCE TP Last administered on 04/07/21at 21:19; Start 04/07/21 at 19:38; Stop 04/07/21 at 19:39; Status DC Bupivacaine HCl/ Epinephrine Bitart (Sensorcain-Epi 0.5%-1:[id number] Mpf) 30 ml STK-MED ONCE .ROUTE Last administered on 04/07/21at 21:19; Start 04/07/21 at 19:39; Stop 04/07/21 at 19:39; Status DC Rocuronium [place] (Zemuron) 50 mg STK-MED ONCE .ROUTE ; Start 04/07/21 at 19:46; Stop 04/07/21 at 19:46; Status DC Dexamethasone Sodium Phosphate (Decadron) 20 mg STK-MED ONCE .ROUTE ; Start 04/07/21 at 19:51; Stop 04/07/21 at 19:51; Status DC Lidocaine HCl (Lidocaine Pf 2% Vial) 5 ml STK-MED ONCE .ROUTE ; Start 04/07/21 at 19:51; Stop 04/07/21 at 19:51; Status DC Ondansetron HCl (Zofran) 4 mg STK-MED ONCE .ROUTE ; Start 04/07/21 at 19:51; Stop 04/07/21 at 19:51; Status DC Propofol (Diprivan) 200 mg STK-MED ONCE IV ; Start 04/07/21 at 19:51; Stop 04/07/21 at 19:51; Status DC Cefazolin Sodium 1 gm/Sodium Chloride 1,000 ml @ 1,000 mls/hr 1X ONCE IRR ; Start 04/07/21 at 20:00; Stop 04/07/21 at 20:59; Status DC Cefazolin Sodium/ Dextrose 50 ml @ As Directed STK-MED ONCE IV ; Start 04/07/21 a t 20:29; Stop 04/07/21 at 20:29; Status DC Fentanyl Citrate (Fentanyl 2ml Vial) 25 mcg PRN Q5MIN PRN IVP MILD PAIN 1-3; Start 04/07/21 at 21:30; Stop 04/08/21 at 21:29; Status DC Fentanyl Citrate (Fentanyl 2ml Vial) 50 mcg PRN Q5MIN PRN IVP MODERATE PAIN 4- 6; Start 04/07/21 at 21:30; Stop 04/08/21 at 21:29; Status DC Morphine Sulfate (Morphine Sulfate) 1 mg PRN Q10MIN PRN IVP SEVERE PAIN 7-10; Start 04/07/21 at 21:30; Stop 04/08/21 at 21:29; Status DC Ringer's Solution 1,000 ml @ 30 mls/hr Q24H IV ; Start 04/07/21 at 21:30; Stop 04/08/21 at 09:29; Status DC Hydromorphone HCl (Dilaudid) 0.5 mg PRN Q10MIN PRN IVP SEVERE PAIN 7-10, 2nd CHOICE; Start 04/07/21 at 21:30; Stop 04/08/21 at 21:29; Status DC Prochlorperazine Edisylate (Compazine) 5 mg PACU PRN PRN IVP NAUSEA, MRX1; Start 04/07/21 at 21:30; Stop 04/08/21 at 21:29; Status DC Ondansetron HCl (Zofran) 4 mg PRN Q8HRS PRN IVP NAUSEA/VOMITING; Start 04/07/21 at 21:45; Stop 04/08/21 at 21:44; Status DC Nicardipine HCl (Cardene) 25 mg STK-MED ONCE IV ; Start 04/07/21 at 22:07; Stop 04/07/21 at 22:07; Status DC Sevoflurane (Ultane) 60 ml STK-MED ONCE IH ; Start 04/07/21 at 22:07; Stop 04/07 at 22:08; Status DC Nicardipine HCl 50 mg/Sodium Chloride 250 ml @ 25 mls/hr TITRATE PRN IV PER PROTOCOL Last administered on 04/07/21at 22:47; Start 04/07/21 at 22:15 Hydralazine HCl (Apresoline Inj) 5 mg PRN Q6HRS PRN IVP TO KEEP SBP<140mmHg Last administered on 04/12/21at 14:17; Start 04/07/21 at 22:15 Al Hydroxide/Mg Hydroxide (Mylanta Plus Xs) 30 ml PRN Q3HRS PRN PO HEARTBURN / GAS; Start 04/07/21 at 22:15 Calcium Carbonate/ Glycine (Tums) 500 mg PRN Q3HRS PRN PO INDIGESTION; Start 04/07/21 at 22:15 Diphenhydramine HCl (Benadryl) 25 mg PRN Q6HRS PRN PO ITCHING; Start 04/07/21 at 22:15 Sodium Chloride (Normal Saline Flush) 3 ml QSHIFT PRN IV AFTER MEDS AND BLOOD DRAWS; Start 04/07/21 at 22:15 Potassium Chloride/Dextrose/ Sod Cl 1,000 ml @ 75 mls/hr [id number] IV Last administered on 04/07/21at 23:14; Start 04/07/21 at 22:30; Stop 04/08/21 at 11:34; Status DC Dextrose (Dextrose 50%-Water Syringe) 12.5 gm PRN Q15MIN PRN IV SEE COMMENTS; Start 04/07/21 at 22:15 Acetaminophen/ Hydrocodone Bitart (Lortab 5/325) 1 tab PRN Q4HRS PRN PO MILD PAIN 1-3; Start 04/07/21 at 22:15 Acetaminophen (Tylenol) 650 mg Q8HRS PO Last administered on 04/13/21at 07:24; Start 04/08/21 at 06:00 Docusate Sodium (Colace) 100 mg BID PO Last administered on 04/13/21at 09:57; Start 04/08/21 at 09:00 Magnesium Hydroxide (Milk Of Magnesia) 2,400 mg PRN Q12HR PRN PO CONSTIPATION; Start 04/07/21 at 22:15 Cefazolin Sodium (Ancef) 1 gm Q8H IVP Last administered on 04/08/21at 21:10; Start 04/08/21 at 04:30; Stop 04/08/21 at 20:31; Status DC Metoprolol Tartrate (Lopressor Vial) 5 mg 1X ONCE IVP Last administered on 04/09/21at 08:48; Start 04/09/21 at 09:30; Stop 04/09/21 at 09:31; Status DC Digoxin (Lanoxin) 500 mcg 1X ONCE IV Last administered on 04/09/21at 10:30; Start 04/09/21 at 10:45; Stop 04/09/21 at 10:46; Status DC Potassium Chloride (Klor-Con) 40 meq 1X ONCE PO Last administered on 04/09/21at 14:30; Start 04/09/21 at 15:00; Stop 04/09/21 at 15:01; Status DC Sodium Chloride 1,000 ml @ 60 mls/hr 1X ONCE IV Last administered on 04/09/21at 14:31; Start 04/09/21 at 14:00; Stop 04/10/21 at 06:39; Status DC Digoxin (Lanoxin) 125 mcg DAILY PO Last administered on 04/13/21at 09:56; Start 04/09/21 at 16:00 Aspirin (Ecotrin) 81 mg DAILY PO Last administered on 04/11/21at 09:21; Start 04/10/21 at 09:00 Cyanocobalamin (Vitamin B-12) 1,000 mcg DAILY PO Last administered on 04/13/21at 09:56; Start 04/10/21 at 09:00 Donepezil HCl (Aricept) 10 mg HS PO Last administered on 04/10/21at 21:32; Start 04/09/21 at 21:00; Stop 04/12/21 at 19:21; Status DC Naproxen (Naprosyn) 250 mg BIDWMEALS PO Last administered on 04/10/21at 17:44; Start 04/09/21 at 20:00; Stop 04/11/21 at 12:07; Status DC Bisacodyl (Dulcolax Tab) 10 mg PRN DAILY PRN PO CONSTIPATION - 2ND CHOICE; Start 04/10/21 at 09:15 Metoprolol Succinate (Toprol Xl) 25 mg DAILY PO Last administered on 04/13/21at 09:57; Start 04/10/21 at 15:30 Amlodipine Besylate (Norvasc) 10 mg DAILY PO Last administered on 04/13/21at 09:57; Start 04/12/21 at 13:00 Potassium Chloride (Klor-Con) 20 meq 1X ONCE PO Last administered on 04/12/21at 12:34; Start 04/12/21 at 13:00; Stop 04/12/21 at 13:01; Status DC Active Scripts Active Hydrocodone-Apap 5-325 (Hydrocodone Bit/Acetaminophen) 1 Tab Tablet 1 Tab PO PRN Q4HRS PRN 10 Days Amlodipine Besylate 10 Mg Tablet 10 Mg PO DAILY 90 Days Metoprolol Succinate ( Xl ) (Metoprolol Succinate) 25 Mg Tab.er.24h 25 Mg PO DA DAISHA 90 Days Digoxin 125 Mcg Tablet 125 Mcg PO DAILY 90 Days Reported Vitamin B-12 (Cyanocobalamin (Vitamin B-12)) 1,000 Mcg Tablet 1,000 Mcg PO DAILY Vitals/I & O Vital Sign - Last 24 Hours 04/12/21 04/12/21 04/12/21 04/12/21 11:00 12:31 12:35 14:09 Temp 98.6 98.6 Pulse 61 63 64 70 Resp 16 B/P (MAP) 181/79 (113) 218/86 (130) 218/86 192/82 (118) Pulse Ox 99 O2 Delivery Room Air 04/12/21 04/12/21 04/12/21 04/12/21 14:17 14:19 15:00 15:19 Temp 98.5 98.5 Pulse 69 67 66 67 Resp 16 B/P (MAP) 192/82 174/66 (102) 174/66 (102) 164/72 (102) Pulse Ox 98 O2 Delivery Room Air 04/12/21 04/12/21 04/12/21 04/12/21 16:19 18:25 19:00 20:00 Temp 97.6 97.6 Pulse 69 68 Resp 18 B/P (MAP) 189/84 (119) 151/70 (97) 137/62 (87) Pulse Ox 98 O2 Delivery Room Air Room Air 04/12/21 04/13/21 04/13/21 04/13/21 22:56 02:45 07:00 09:56 Temp 98.0 97.7 97.7 98.0 97.7 97.7 Pulse 68 68 65 65 Resp 16 16 16 B/P (MAP) 135/70 (91) 141/58 (85) 127/58 (81) 127/58 Pulse Ox 98 97 98 O2 Delivery Room Air Room Air Room Air 04/13/21 04/13/21 09:57 09:57 Pulse 65 65 B/P (MAP) 127/58 127/58 Intake and Output 04/12/21 04/12/21 04/13/21 15:00 23:00 07:00 Output Total 150 ml Balance -150 ml Justifications for Admission Other Justification BEATRICE DENIS MD Apr 13, 2021 10:05
[2021-04-13 10:46] VITALS: BP 138/62
--- NOTE | 2021-04-13 11:09 | PDOC ---
[facility] PROGRESS NOTE Date of Service DOS: DATE: 04/13/21 TIME: 11:05 Chief Complaint Chief Complaint Subdural hematoma status post left craniotomy 04/07/2021 with drain placed. Weakness. AMS. Mild anemia secondary acute blood loss. Severe protein malnutrition. HTN. HLD. OA. Allergic rhinitis. [place]. BPH. History of Present Illness History of Present Illness Patient is a 85 year old male with history of dementia presenting to the ED today via EMS to be evaluated for altered mental status and generalized weakness. It is unknown when his symptoms began. Patient is answering simple questions with yes or no but seem not to follow much directions. Family came to the ED later, they state patient has had general weakness and altered mental status since this morning. They deny patient falling today but states a couple months ago he fell off his truck bed. 04/09/21 Pt seen and examined at bedside. Pt in NAD. Pt cannot remember how he hurt his head. D/W RN. Chart reviewed. 04/10/2021 Pt seen and examined at bedside. Pt in NAD. Wound is CDIT. D/W RN. Chart reviewed. 04/11/2021 No acute events overnight. Patient seen and examined bedside. No complaints at this time. Patient is status post left craniotomy. No focal deficits at this time. Patient's chart, labs, images were reviewed and discussed with RN. 04/12/2021 Patient seen and examined at bedside. D/W RN. Chart reviewed. He is sitting up in bed, alert and working with PT/OT. Plan for additional anti-hypertensive medication. 04/13/2021 Patient seen and examined at bedside. D/W RN. Chart reviewed. BP is 138/62 today. Vitals/I&O Vitals/I&O: Vital Signs Date Time Temp Pulse Resp B/P (MAP) Pulse Ox O2 Delivery O2 Flow Rate FiO2 04/13/21 10:46 97.5 64 16 138/62 (87) 98 Room Air 97.5 I & O 04/12/21 04/12/21 04/13/21 15:00 23:00 07:00 Output Total 150 ml Balance -150 ml Physical Exam General: Alert, Cooperative, No acute distress Heart: Regular rate, Normal S1, Other (AFIB RVR) Lungs: Clear Abdomen: Soft, No tenderness Extremities: No cyanosis, No edema Skin: Other (dressing C,D,I) Labs Labs: Laboratory Tests Test 04/13/21 06:20 White Blood Count 3.9 x10^3/uL (4.0-11.0) Red Blood Count 2.83 x10^6/uL (4.30-5.70) Hemoglobin 9.7 g/dL (13.0-17.5) Hematocrit 27.7 % (39.0-53.0) Mean Corpuscular Volume 98 fL (79-100) Mean Corpuscular Hemoglobin 34 pg (25-35) Mean Corpuscular Hemoglobin Concent 35 g/dL (31-37) Red Cell Distribution Width 14.8 % (11.5-14.5) Platelet Count 53 x10^3/uL (140-400) Neutrophils (%) (Auto) 69 % (31-73) Lymphocytes (%) (Auto) 24 % (24-48) Monocytes (%) (Auto) 6 % (0-9) Eosinophils (%) (Auto) 1 % (0-3) Basophils (%) (Auto) 0 % (0-3) Neutrophils # (Auto) 2.7 x10^3/uL (1.8-7.7) Lymphocytes # (Auto) 0.9 x10^3/uL (1.0-4.8) Monocytes # (Auto) 0.2 x10^3/uL (0.0-1.1) Eosinophils # (Auto) 0.0 x10^3/uL (0.0-0.7) Basophils # (Auto) 0.0 x10^3/uL (0.0-0.2) Sodium Level 137 mmol/L (136-145) Potassium Level 3.6 mmol/L (3.5-5.1) Chloride Level 103 mmol/L (98-107) Carbon Dioxide Level 31 mmol/L (21-32) Anion Gap 3 (6-14) Blood Urea Nitrogen 15 mg/dL (8-26) Creatinine 1.0 mg/dL (0.7-1.3) Estimated GFR (Cockcroft-Gault) 71.2 BUN/Creatinine Ratio 15 (6-20) Glucose Level 84 mg/dL (70-99) Calcium Level 8.2 mg/dL (8.5-10.1) Total Bilirubin 0.6 mg/dL (0.2-1.0) Aspartate Amino Transf (AST/SGOT) 18 U/L (15-37) Alanine Aminotransferase (ALT/SGPT) 9 U/L (16-63) Alkaline Phosphatase 68 U/L (46-116) Total Protein 6.0 g/dL (6.4-8.2) Albumin 2.5 g/dL (3.4-5.0) Albumin/Globulin Ratio 0.7 (1.0-1.7) Review of Systems Review of Systems: Denies weakness. Denies nausea or vomiting. Assessment and Plan Assessmemt and Plan Problems Medical Problems: (1) Midline shift of brain due to hematoma Status: Acute Assessment: Subdural hematoma status post left craniotomy 04/07/2021 with drain placed. Weakness. AMS. Mild anemia secondary acute blood loss. Severe protein malnutrition. HTN. HLD. OA. Allergic rhinitis. [place]. BPH Plan: Cardiac monitoring. Wound care. Trend labs. PT/OT/ST. Toprol. Digoxin. Hold aspirin and naproxen Hold Aricept Norvasc. Home meds. DVT prophylaxis. Full code. Appreciate subspeciality input. Discharge to intermediate. Comment Review of Relevant I have reviewed the following items emperatriz (where applicable) has been applied. Medications: Current Medications Medications (Trade) Dose Ordered Sig/Jennifer Route PRN Reason Start Time Stop Time Status Last Admin Dose Admin Amlodipine Besylate (Norvasc) 10 mg DAILY PO 04/12/21 13:00 04/13/21 09:57 Potassium Chloride (Klor-Con) 20 meq 1X ONCE PO 04/12/21 13:00 04/12/21 13:01 DC 04/12/21 12:34 Justifications for Admission Other Justification MARKIE ALMODOVAR III DO Apr 13, 2021 11:09
--- NOTE | 2021-04-13 14:57 | NUR ---
Discharge Note: YON ARTIS Discharge instructions and discharge home medications reviewed with Patient and a copy given. All questions have been answered and understanding verbalized. The following instructions and handouts were given: metoprolol, digoxin, amlodipine Patient discharged to [facility] with transport via wheelchair.
== END 2021-04-13 14:58 | DRG 25 ==
LOC: ER 17:42 → 1 WEST ICU 21:15 → 6 SOUTH 04-08 21:01
PROVIDERS: ADMIT Family Medicine; ATTEND Family Medicine
PROC: 00C40ZZ Extirpation of Matter from Intracranial Subdural Space, Open Approach (ICD-10-PCS; principal; 2021-04-07 20:00)
DX: S06.5X9A Traumatic subdural hemorrhage with loss of consciousness of unspecified duration, initial encounter (principal); G93.41 Metabolic encephalopathy; E43 Unspecified severe protein-calorie malnutrition; I50.31 Acute diastolic (congestive) heart failure; D62 Acute posthemorrhagic anemia; G81.91 Hemiplegia, unspecified affecting right dominant side; N17.9 Acute kidney failure, unspecified; D69.6 Thrombocytopenia, unspecified; E78.5 Hyperlipidemia, unspecified; F03.90 Unspecified dementia, unspecified severity, without behavioral disturbance, psychotic disturbance, mood disturbance, and anxiety; I11.0 Hypertensive heart disease with heart failure; I48.91 Unspecified atrial fibrillation; J30.9 Allergic rhinitis, unspecified; M17.0 Bilateral primary osteoarthritis of knee; M21.20 Flexion deformity, unspecified site; N40.0 Benign prostatic hyperplasia without lower urinary tract symptoms; Z82.49 Family history of ischemic heart disease and other diseases of the circulatory system; Z91.81 History of falling; M19.90 Unspecified osteoarthritis, unspecified site; W18.39XA Other fall on same level, initial encounter; Y93.89 Activity, other specified; Y92.89 Other specified places as the place of occurrence of the external cause; Y99.8 Other external cause status; Z20.822 Contact with and (suspected) exposure to COVID-19; Z68.23 Body mass index [BMI] 23.0-23.9, adult
CPT/HCPCS: 36415; 70450; 71045; 80048; 80053; 80307; 81001; 82553; 83605; 83735; 83880; 84145; 84443; 84484; 85007; 85025; 85610; 85730; 87040; 87426; 88304; 93005; 93306; 96365; 99291; A4314; A4364; A4452; A4930; A6219; A6255; C1713; J0360; J0690; J1100; J1160; J2405; J2704; J3480; J3490; J7030; J7050; U0003; U0005; 97110-GP; 97535-GO; G0378

== ENCOUNTER → 2021-04-25 | Outpatient (CLI) | payer MEDICARE ==
[2021-04-13 10:46] VITALS: BP 138/62
[~2021-04-25] MED LIST: AMLO-187 PO; ASPI-886 PO; CYAN-25 PO; DIGO125T3 PO; DONE10TA7 PO; HYDR-2761 PO; METO-239 PO; NAPR220T70 PO
--- NOTE | 2021-04-25 13:31 | RAD ---
EXAM: Head CT without contrast. HISTORY: Subdural hematoma status post craniotomy. TECHNIQUE: Computed tomographic images of the head were obtained without contrast. *One or more of the following individualized dose reduction techniques were utilized for this examina tion: 1. Automated exposure control. 2. Adjustment of the mA and/or kV according to patient size. 3. Use of iterative reconstruction technique. COMPARISON: 04/07/2021. FINDINGS: There are interval left frontal craniotomy changes. There has been decompression of a previ ously demonstrated large subdural hematoma. The subdural hematoma now measures 1.2 cm in maximum thic kness within the inferior left frontal distribution, compared to a prior measurement of 2.0 cm. There is associated hyperdensity within the subdural collection due to acute blood products superimposed o n chronic blood products. There has been decrease in rightward midline shift, measuring 8 mm compared to a prior measurement of 16 mm. There has been interval decrease in effacement of the left lateral ventricle and left cerebra l sulci. There are lateral left scalp skin thu due to recent surgery. There is decreased attenuation within the cerebral white matter, likely due to chronic small vessel d isease. There is a suspected chronic infarct within the right basal ganglia. There is evidence of kelly s surgery. There is mild ethmoid sinus mucosal thickening. There is fluid within the mastoid air cell s. IMPRESSION: 1. Interval left-sided craniotomy and decompression of a left cerebral convexity subdural hematoma. T he hematoma is decreased in size and now contains a small component of acute blood products due to re cent surgery. There is associated decreased rightward midline shift and effacement of the left ventri susan and cerebral sulci. 2. 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 Electronically signed by: Susi Greene MD (04/25/2021 1:28 PM) [id number]
== END ==
LOC: CT 12:31
PROVIDERS: ATTEND Neurological Surgery
DX: S06.5X0A Traumatic subdural hemorrhage without loss of consciousness, initial encounter (principal); G93.89 Other specified disorders of brain; X58.XXXA Exposure to other specified factors, initial encounter; Y93.89 Activity, other specified; Y92.89 Other specified places as the place of occurrence of the external cause; Y99.8 Other external cause status
CPT/HCPCS: 70450

== ENCOUNTER → 2021-06-19 | Outpatient (CLI) | payer MEDICARE ==
--- NOTE | 2021-06-19 15:11 | KCIC ---
CT HEAD WITHOUT CONTRAST 06/19/2021 1:11 PM Indication: Reason: SDH, CRANIOTOMY / Comparison: CT of the head without contrast April 25, 2021 Procedure: Multidetector CT imaging of the head was performed without the administration of contrast. Findings: Postoperative changes following prior craniotomy and evacuation of the left convexly subdur al hematoma noted. Mild residual dural calcification and minimal thickening is present. No signific ant residual subdural hematoma is identified. There is patchy periventricular deep white matter hypoa ttenuation consistent with chronic small vessel disease. Encephalomalacia in the left cerebellum is u nchanged. No new hemorrhage is identified. Ventricles and basilar cisterns are unremarkable. No acute osseous changes are seen. IMPRESSION: Expected postsurgical changes. No acute intracranial abnormality is identified CT DOSING PQRS STATEMENT: One or more of the following individualized dose reduction techniques were utilized for this examinat ion: 1. Automated exposure control 2. Adjustment of the mA and/or kV according to patient size 3. Use of iterative reconstruction technique Electronically signed by: Madhu Wallace MD (06/19/2021 3:09 PM) [id number]
== END ==
LOC: KCIC CT 13:09
PROVIDERS: ATTEND Neurological Surgery
DX: S06.5X9A Traumatic subdural hemorrhage with loss of consciousness of unspecified duration, initial encounter (principal); G93.89 Other specified disorders of brain; Z98.890 Other specified postprocedural states; X58.XXXA Exposure to other specified factors, initial encounter; Y93.89 Activity, other specified; Y92.89 Other specified places as the place of occurrence of the external cause; Y99.8 Other external cause status
CPT/HCPCS: 70450